=== PATIENT | male | born 1985 | race Caucasian/White ===

== ENCOUNTER → 2020-05-30 15:01 | Outpatient (BNVA) | payer BC, SELFPAY | PROVIDERS: Family Provider Family Medicine; Visit Provider Counselor Professional | DX: F10.20 Alcohol dependence, uncomplicated (principal); F33.1 Major depressive disorder, recurrent, moderate | CPT/HCPCS: 90791 ==

== ENCOUNTER 2020-06-17 01:58 | Emergency (ER) | payer BC, SELFPAY ==
[2020-06-17 02:02] VITALS: BP 121/78; PULSE 96; RESP 17; TEMP 36.6; O2SAT 98; BMI 30.4
--- NOTE | 2020-06-17 02:28 | XRR_ITS ---
PROCEDURE INFORMATION: Exam: XR Left Foot Exam date and time: 06/17/2020 2:43 AM Age: 35 years old Clinical indication: Injury or trauma; Injury history: Snake bite; Initial encounter; Wound; Ankle; Left; Foreign body involvement not specified TECHNIQUE: Imaging protocol: XR Left foot. Views: 1 or 2 views. COMPARISON: No relevant prior studies available. FINDINGS: No definite acute fracture or dislocation is demonstrated on these 2 views. XR/XR foot LT 2V [id number] IMPRESSION: No acute osseous abnormality is demonstrated.
[2020-06-17 02:44] VITALS: RESP 18
[2020-06-17] MEDS: diphenhydrAMINE 50 mg/mL SDV 1mL 25 MG IVP (02:44)
[2020-06-17] MEDS: ketorolac 30 mg/mL INJ IVP (02:44)
[2020-06-17] MEDS: HYDROmorphone 1 mg/mL INJ 1 mL IVP (02:44)
[2020-06-17 02:45] LABS: Basophils # 0.1 10^3/uL (0.0-0.1); Basophils % 0.8 %; Eosinophils # 0.2 10^3/uL (0.0-0.8); Hematocrit 46.9 % (42.0-52.0); Hemoglobin 16.1 g/dL (11.7-16.6); Lymphocytes # 3.1 10^3/uL (0.8-4.8); Mean Corpuscular HGB Conc 34.3 g/dL (30.0-36.0); Mean Corpuscular Hemoglobin 32.9 pg (28.0-34.0); Mean Corpuscular Volume 95.7 fL (80-94); Monocytes # 0.9 10^3/uL (0.2-0.9); Monocytes % 10.6 %; Neutrophils % 50.4 %; Nucleated Red Blood Cells % 0 %; Platelet Count 366 10^3/cmm (130-400); Red Cell Distribution Width 13.2 % (12.1-15.1); White Blood Count 8.6 10^3/uL (4.0-10.0)
[2020-06-17] MEDS: ondansetron 2 mg/ML SDV 2 mL 4 MG IVP (02:45)
[2020-06-17] MEDS: sodium chloride 0.9% 500 ML IV (02:50)
[2020-06-17 03:02] LABS: Alanine Aminotransferase 191 U/L (0-41); Albumin Level 4.3 g/dL (3.5-5.2); Alkaline Phosphatase 96 IU/L (40-130); Anion Gap 13.8 (5-19); Aspartate Amino Transferase 169 U/L (0-40); Blood Urea Nitrogen 3 mg/dL (6-20); C Reactive Protein 4.6 mg/L (0.0-4.9); Calcium 8.6 mg/dL (8.5-10.5); Carbon Dioxide 28 mmol/L (22-29); Chloride 104 mmol/L (98-107); Creatine Phosphokinase 73 U/L (39-308); Globulin 2.8 g/dL (1.3-4.6); Glomerular Filtration Rate 95.5 mL/min (90-130); Glucose 106 mg/dL (65-115); Osmolality Calculated 292 mOsm/kg (285-295); Sodium 143 mmol/L (136-145); Total Bilirubin 0.5 mg/dL (0.15-1.2); Total Protein 7.1 g/dL (6.6-8.7)
[2020-06-17 03:03] LABS: Lactate (Lactic Acid level) 1.3 mmol/L (0.5-2.2)
[2020-06-17 03:12] LABS: Potassium 2.8 mmol/L (3.5-5.1)
[2020-06-17 03:21] LABS: INR 1.04 (0.8-1.2)
[2020-06-17 03:22] LABS: Fibrinogen 242 mg/dL (174-498); Partial Thromboplastin Time 25.6 SECONDS (23.9-36.7)
[2020-06-17 03:25] LABS: D Dimer 0.36 ug/mIFEU (0-0.59)
[2020-06-17 03:44] VITALS: BP 132/84; PULSE 74; RESP 16; O2SAT 99
[2020-06-17] MEDS: potassium chloride oral liq 20 mEq/15 mL UDC 40 MEQ PO (04:25)
[2020-06-17 04:35] VITALS: BP 128/84; PULSE 72; RESP 16; TEMP 36.8; O2SAT 99
--- NOTE | 2020-06-17 22:58 | W.ED.ANIMALB ---
HPI - Animal Bite General: Chief Complaint: Animal Bite Stated Complaint: snake bite foot Time Seen by Provider: 06/17/20 02:19 History of Present Illness: HPI narrative: 35-year-old male who believes he was bitten by a snake at home. He did not see the snake clearly. Was bitten on the left fourth toe. He began to experience significant pain tracking up his leg within an hour. It worsened over the next couple of hours. He is not had any shortness of breath cough or facial swelling. MD complaint: animal bite Onset (ago): hour(s) Animal: snake Mechanism: bite Location - Extremities: Left: foot Pain description: constant Context: other Associated symptoms: Deny bleeding, chills, cough, fever(s), headache(s), rash, short of breath or wound drainage Review of Systems Const: Denies: fever(s) or chills Eyes: Denies: change in vision or blurry vision ENMT: Denies: swelling of lips/tongue or bleeding gums Card: Denies: chest pain, palpitations or irregular heart rhythm Resp: Denies: dyspnea, productive cough, non-productive cough or wheezing GI: Reports: nausea; Denies: abdominal pain or vomiting : Denies: difficulty urinating or hematuria Musc: Reports: joint redness and joint warmth; Denies: neck pain or back pain Skin/Breast: Denies: rash, pruritus or erythema Neuro: Denies: headache(s) Psych: Denies: anxiety PFSH ED PFSH: Social History Current gender identity: Male Physical Exam Const: GENERAL APPEARANCE: well developed ORIENTATION/CONSCIOUSNESS: Yes oriented to person, Yes oriented to place and Yes oriented to time HENMT: COMMON NORMALS: normocephalic, external ears normal and Normal external nose present HEAD & SCALP: normocephalic FACE & SINUS: normal facial exam NOSE: Normal external nose present and No nasal discharge present EXTERNAL EAR: Yes external ears normal THROAT: posterior oropharynx normal; no peritonsillar mass Eye: COMMON NORMALS: Equal, round and reactive pupils present, EOMs intact bilaterally and conjunctivae normal EYELID: eyelids normal CONJUNCTIVA: Yes conjunctivae normal PUPIL: Yes Equal, round and reactive pupils present Neck/C-Spine: GENERAL: No tracheal deviation Chest: COMMONS NORMALS: normal inspection of the chest CHEST: No tenderness Resp: COMMON NORMALS: clear to auscultation bilaterally EFFORT & INSPECTION: No tachypneic, No respiratory distress, No retractions, No uses accessory muscles and No tracheal deviation AUSCULTATION: clear to auscultation bilaterally, no rhonchi, no wheezes and lung sounds not diminished Cardio: COMMON NORMALS: regular rate and regular rhythm RATE: regular rate RHYTHM: regular rhythm HEART SOUNDS: no murmurs PERIPHERAL PULSES: radial pulses present GI: INSPECTION: No abdominal distension AUSCULTATION: No Hyperactive bowel sounds present and No Hypoactive bowel sounds present PALPATION: No Guarding due to palpation present (GI) and No Rigid due to palpation PERCUSSION: no dullness to percussion and no tympanic to percussion Extremity: NARRATIVE EXTREMITY EXAM: Puncture to left fourth toe. Hemorrhagic blister present on the dorsum. Swelling present to the ankle. No reproducible tenderness superior to the ankle. Neuro: SENSORIUM/ORIENTATION: Yes oriented to person, Yes oriented to place and Yes oriented to time Psych: COMMON NORMALS: mental status grossly normal Skin: COMMON NORMALS: no rashes or lesions noted GENERAL SKIN EXAM: no rashes or lesions noted Course Vital Signs: Vital signs: Vital Signs Temperature 98.2 F 06/17/20 04:35 Pulse Rate 72 06/17/20 04:35 Respiratory Rate 16 06/17/20 04:35 Blood Pressure 128/84 06/17/20 04:35 Pulse Oximetry 99 06/17/20 04:35 MDM - Animal Bite MDM Narrative: Medical decision making narrative: 35-year-old male presents with a likely snake envenomation. He is experiencing pain up to the left groin after a bite to the left foot. There is no sign of anaphylaxis or airway compromise. His potassium is low. His coagulation studies are normal. His pain is improved. He is hours out from injury. I doubt at this point, that he will progress to significant disease including compartment syndrome or allergic reaction. I do not see a need for [employer] in this patient. He will be given oral steroids and pain control. His potassium was repleted. Lab Data: Labs: Lab Results 06/17/20 06/17/20 06/17/20 Range/Units 02:37 02:37 02:37 WBC 8.6 (4.0-10.0) 10^3/ uL RBC 4.90 (4.1-5.3) 10^6/u L Hgb 16.1 (11.7-16.6) g/dL Hct 46.9 (42.0-52.0) % MCV 95.7 H (80-94) fL MCH 32.9 (28.0-34.0) pg MCHC 34.3 (30.0-36.0) g/dL RDW 13.2 (12.1-15.1) % Plt Count 366 (130-400) 10^3/c mm MPV 9.0 (7.4-10.4) fL Neut % (Auto) 50.4 % Lymph % (Auto) 36.0 % [place] % (Auto) 10.6 % Eos % (Auto) 2.0 % Baso % (Auto) 0.8 % Neut # (Auto) 4.30 (1.8-7.7) 10^3/u L Lymph # (Auto) 3.1 (0.8-4.8) 10^3/u L [place] # (Auto) 0.9 (0.2-0.9) 10^3/u L Eos # (Auto) 0.2 (0.0-0.8) 10^3/u L Baso # (Auto) 0.1 (0.0-0.1) 10^3/u L Nucleated RBC % (a uto) 0 % Nucleated RBCs # 0.0 /100WBC PT 14.00 (12.1-14.9) SECO NDS INR 1.04 (0.8-1.2) APTT 25.6 (23.9-36.7) SECO NDS Fibrinogen 242 (174-498) mg/dL Fibrin Degrad Prod ucts Neg, <10 (NEG) ug/mL D-Dimer 0.36 (0-0.59) ug/mIFE U Sodium 143 (136-145) mmol/L Potassium 2.8 L* (3.5-5.1) mmol/L Chloride 104 (98-107) mmol/L Carbon Dioxide 28 (22-29) mmol/L Anion Gap 13.8 (5-19) BUN 3 L (6-20) mg/dL Creatinine 0.9 (0.7-1.2) mg/dL GFR Calculation 95.5 (90-130) mL/min Glucose 106 (65-115) mg/dL Calculated Osmolal ity 292 (285-295) mOsm/k g Lactate (0.5-2.2) mmol/L Calcium 8.6 (8.5-10.5) mg/dL Total Bilirubin 0.5 (0.15-1.2) mg/dL AST 169 H (0-40) U/L ALT 191 H (0-41) U/L Alkaline Phosphata se 96 (40-130) IU/L Creatine Kinase 73 (39-308) U/L C-Reactive Protein 4.6 (0.0-4.9) mg/L Total Protein 7.1 (6.6-8.7) g/dL Albumin 4.3 (3.5-5.2) g/dL Globulin 2.8 (1.3-4.6) g/dL 06/17/20 Range/Units 02:37 WBC (4.0-10.0) 10^3/ uL RBC (4.1-5.3) 10^6/u L Hgb (11.7-16.6) g/dL Hct (42.0-52.0) % MCV (80-94) fL MCH (28.0-34.0) pg MCHC (30.0-36.0) g/dL RDW (12.1-15.1) % Plt Count (130-400) 10^3/c mm MPV (7.4-10.4) fL Neut % (Auto) % Lymph % (Auto) % [place] % (Auto) % Eos % (Auto) % Baso % (Auto) % Neut # (Auto) (1.8-7.7) 10^3/u L Lymph # (Auto) (0.8-4.8) 10^3/u L [place] # (Auto) (0.2-0.9) 10^3/u L Eos # (Auto) (0.0-0.8) 10^3/u L Baso # (Auto) (0.0-0.1) 10^3/u L Nucleated RBC % (a uto) % Nucleated RBCs # /100WBC PT (12.1-14.9) SECO NDS INR (0.8-1.2) APTT (23.9-36.7) SECO NDS Fibrinogen (174-498) mg/dL Fibrin Degrad Prod ucts (NEG) ug/mL D-Dimer (0-0.59) ug/mIFE U Sodium (136-145) mmol/L Potassium (3.5-5.1) mmol/L Chloride (98-107) mmol/L Carbon Dioxide (22-29) mmol/L Anion Gap (5-19) BUN (6-20) mg/dL Creatinine (0.7-1.2) mg/dL GFR Calculation (90-130) mL/min Glucose (65-115) mg/dL Calculated Osmolal ity (285-295) mOsm/k g Lactate 1.3 (0.5-2.2) mmol/L Calcium (8.5-10.5) mg/dL Total Bilirubin (0.15-1.2) mg/dL AST (0-40) U/L ALT (0-41) U/L Alkaline Phosphata se (40-130) IU/L Creatine Kinase (39-308) U/L C-Reactive Protein (0.0-4.9) mg/L Total Protein (6.6-8.7) g/dL Albumin (3.5-5.2) g/dL Globulin (1.3-4.6) g/dL Discharge Plan Discharge Patient Disposition: Home Clinical Impression: Snake bite Qualifiers: Encounter type: initial encounter Qualified Code(s): W59.11XA - Bitten by nonvenomous snake, initial encounter Condition: Stable Prescriptions: New Percocet 7.5-325 mg tablet 1 tab PO Q6H PRN (Reason: pain) Qty: 10 RF: 0 Medrol (Luis E) 4 mg tablets,dose pack See Rx Instructions .ROUTE .COMPLEX Qty: 21 RF: 0 Discharge Orders: Discharge Order (Routine); Ordered 06/17/20 Ordered By: Quinton Ponce Referrals: Kuldeep Gillespie Jr, MD [Primary Care Provider] - 1-3 days Discharge Diet: Advance as tolerated Discharge Activity: Increase activity as tolerated Patient Instructions: Snake Bite (ED) Activity Restrictions/Additional Instructions: Return for worsening pain, swelling, redness, streaking despite treatment. Return for vomiting liquids or medications, fever greater than 100, other concerning symptoms. Ice the foot often. Discharge Date/Time: 06/17/20 04:36 Coding Level of Care Code ED Program Coordinator Executive Education for [employer]
== END 2020-06-17 04:36 | disposition home or self-care (01) ==
PROVIDERS: Emergency Provider Emergency Medicine; PCP Family Medicine
DX: T63.001A Toxic effect of unspecified snake venom, accidental (unintentional), initial encounter (principal)
CPT/HCPCS: 12345; 73620; 80053; 82550; 83605; 85025; 85362; 85378; 85384; 85610; 85730; 86140; 96361; 96374; 96375; 99282; 99283; J1170; J1200; J1885; J2405; J2930; J7040

== ENCOUNTER → 2020-07-02 08:49 | Outpatient (BNVA) | payer BC, SELFPAY | PROVIDERS: Family Provider Family Medicine; Visit Provider Psychiatry & Neurology Psychiatry | DX: F33.1 Major depressive disorder, recurrent, moderate (principal); F10.20 Alcohol dependence, uncomplicated | CPT/HCPCS: 99204 ==

== ENCOUNTER 2020-08-31 19:35 | Inpatient (IN) | payer BC, SELFPAY ==
[2020-08-31 19:38] VITALS: BMI 31.1
--- NOTE | 2020-08-31 19:43 | PC.NURSE ---
patient denies SI. Was sent here for suicidal thoughts and expression to others.
[2020-08-31 19:44] VITALS: BP 127/81; PULSE 122; RESP 18; TEMP 36.4; O2SAT 94
--- NOTE | 2020-08-31 20:06 | W.ED.PSYCH ---
HPI - Psych General: Chief Complaint: Psychiatric Symptoms Stated Complaint: 96 Time Seen by Provider: 08/31/20 19:44 Source: patient Mode of arrival: ambulatory History of Present Illness: HPI Narrative: Patient was brought in to the ED by law enforcement after his sister obtained a court-ordered 96 hour psychiatric hold on him. In her affidavit, she states that the patient is suicidal and has said he would shoot himself. The patient denies this. The patient also endorses alcohol abuse but claims he only does it to help him sleep. The patient claims he went to see his doctor today for an adjustment of his medications including trazodone to help him sleep. He chews tobacco but denies any illicit drug use Context: recent alcohol abuse Review of Systems General: Reports: 10 or more systems reviewed and unremarkable except in HPI and below Const: Denies: fever(s), chills or body aches Eyes: Denies: change in vision or blurry vision ENMT: Denies: throat pain, enlarged tonsils, odynophagia, hoarseness, mouth pain or swelling of lips/tongue Card: Denies: palpitations, irregular heart rhythm, edema or swelling of feet/ankles Resp: Denies: dyspnea, productive cough or non-productive cough GI: Denies: abdominal pain, nausea or vomiting : Denies: flank pain, dysuria, urinary frequency, urinary urgency or urinary hesitancy Musc: Denies: neck pain, back pain or extremity swelling Skin/Breast: Denies: rash, pruritus or erythema Neuro: Denies: headache(s), numbness in extremities or weakness in extremities Endo: Denies: polyuria, polydipsia or tired all the time [facility] ED PFSH: Social History Smoking and tobacco status: current every day smoker smokeless tobacco Smokeless tobacco user: chewing tobacco Smokeless tobacco details: 1 can per day for 20 years. Quit status (tobacco): considering quitting Second hand smoke exposure: No Current gender identity: Male Physical Exam Const: COMMON NORMALS: no acute distress, average body habitus, patient oriented x3, no limitations, healthy appearing, alert and well nourished HENMT: COMMON NORMALS: normocephalic, atraumatic and moist oral mucous membranes HEAD & SCALP: normocephalic and atraumatic Neck/C-Spine: COMMON NORMALS: full ROM, supple, no meningeal signs, no JVD and No carotid bruits Resp: COMMON NORMALS: normal respiratory effort, No retractions, No use of accessory muscles, clear to auscultation bilaterally and percussion normal AUSCULTATION: clear to auscultation bilaterally PERCUSSION: percussion normal Cardio: COMMON NORMALS: no JVD, regular rate, regular rhythm, S1 normal heart sound present, S2 normal heart sound present, No gallops present (Cardio), No clicks present (Cardio), No murmurs present (Cardio), No rub (Cardio) and Peripheral pulses 2+ throughout RATE: regular rate RHYTHM: regular rhythm HEART SOUNDS: S1 normal heart sound present and S2 normal heart sound present PERIPHERAL PULSES: Peripheral pulses 2+ throughout GI: COMMON NORMALS: Normal to inspection, nondistended, normoactive bowel sounds present, Soft to palpation, non-tender, No hepatosplenomegaly present, no masses and no bruits PALPATION: Yes Soft to palpation and Yes No hepatosplenomegaly present Extremity: COMMON NORMALS: normal to inspection, full ROM, capillary refill normal, no calf tenderness and no pedal edema Neuro: COMMON NORMALS: patient oriented x3 SENSORIUM/ORIENTATION: Yes alert MENINGEAL SIGNS: Yes no meningeal signs Skin: COMMON NORMALS: no rashes or lesions noted, no wounds, turgor normal, no jaundice, no petechiae and no mottling GENERAL SKIN EXAM: no rashes or lesions noted and turgor normal MDM - Psych MDM Narrative: Medical decision making narrative: Patient who was brought in on a 96-hour hold secondary to reported suicide ideation. The patient was medically cleared and he is admitted to the neuropsychiatric unit for further evaluation and management Medical Records: Attestation: I reviewed the patient's medical records. Lab Data: Attestation: I reviewed the patient's lab results. Labs: Lab Results 08/31/20 08/31/20 08/31/20 Range/Units 19:49 19:49 20:15 WBC 12.0 H (4.0-10.0) 10^3/ uL RBC 5.11 (4.1-5.3) 10^6/u L Hgb 17.3 H (11.7-16.6) g/dL Hct 50.1 (42.0-52.0) % MCV 98.0 H (80-94) fL MCH 33.9 (28.0-34.0) pg MCHC 34.5 (30.0-36.0) g/dL RDW 12.8 (12.1-15.1) % Plt Count 283 (130-400) 10^3/c mm MPV 9.2 (7.4-10.4) fL Neut % (Auto) 68.5 % Lymph % (Auto) 20.1 % [place] % (Auto) 9.6 % Eos % (Auto) 0.6 % Baso % (Auto) 0.9 % Neut # (Auto) 8.24 H (1.8-7.7) 10^3/u L Lymph # (Auto) 2.4 (0.8-4.8) 10^3/u L [place] # (Auto) 1.2 H (0.2-0.9) 10^3/u L Eos # (Auto) 0.1 (0.0-0.8) 10^3/u L Baso # (Auto) 0.1 (0.0-0.1) 10^3/u L Nucleated RBC % (a uto) 0 % Nucleated RBCs # 0.0 /100WBC Sodium (136-145) mmol/L Potassium (3.5-5.1) mmol/L Chloride (98-107) mmol/L Carbon Dioxide (22-29) mmol/L Anion Gap (5-19) BUN (6-20) mg/dL Creatinine (0.7-1.2) mg/dL GFR Calculation (90-130) mL/min Glucose (65-115) mg/dL Calculated Osmolal ity (285-295) mOsm/k g Calcium (8.5-10.5) mg/dL Total Bilirubin (0.15-1.2) mg/dL AST (0-40) U/L ALT (0-41) U/L Alkaline Phosphata se (40-130) IU/L Total Protein (6.6-8.7) g/dL Albumin (3.5-5.2) g/dL Globulin (1.3-4.6) g/dL Urine Color [place] (Yellow) Urine Appearance Clear (CLEAR) Urine pH 7 (5-7) Ur Specific Gravit y 1.005 (1.005-1.030) Urine Protein Neg (Negative) Urine Glucose (UA) Trace H (Normal) Urine Ketones Negative (Negative) Urine Blood Neg (Negative) Urine Nitrate Negative (Negative) Urine Bilirubin Neg (Negative) Urine Urobilinogen 4 H (Negative) mg/dL Ur Leukocyte Pauline ase Negative (Negative) Salicylates (3-10) mg/dL Urine Opiates Scre en Negative (Negative) ng/mL Acetaminophen (10-30) ug/mL Ur Barbiturates Sc reen Negative (Negative) ng/mL Ur Phencyclidine S crn Negative (Negative) ng/mL Ur Amphetamines Sc reen Negative (Negative) ng/mL U Benzodiazepines Scrn Negative (Negative) ng/mL Urine Cocaine Scre en Negative (Negative) ng/mL U Marijuana (THC) Screen Negative (Negative) ng/mL Ethyl Alcohol (0-10) mg/dL 10/30/20 Range/Units 20:15 WBC (4.0-10.0) 10^3/ uL RBC (4.1-5.3) 10^6/u L Hgb (11.7-16.6) g/dL Hct (42.0-52.0) % MCV (80-94) fL MCH (28.0-34.0) pg MCHC (30.0-36.0) g/dL RDW (12.1-15.1) % Plt Count (130-400) 10^3/c mm MPV (7.4-10.4) fL Neut % (Auto) % Lymph % (Auto) % [place] % (Auto) % Eos % (Auto) % Baso % (Auto) % Neut # (Auto) (1.8-7.7) 10^3/u L Lymph # (Auto) (0.8-4.8) 10^3/u L [place] # (Auto) (0.2-0.9) 10^3/u L Eos # (Auto) (0.0-0.8) 10^3/u L Baso # (Auto) (0.0-0.1) 10^3/u L Nucleated RBC % (a uto) % Nucleated RBCs # /100WBC Sodium 138 (136-145) mmol/L Potassium 3.2 L (3.5-5.1) mmol/L Chloride 100 (98-107) mmol/L Carbon Dioxide 24 (22-29) mmol/L Anion Gap 17.2 (5-19) BUN 6 (6-20) mg/dL Creatinine 0.6 L (0.7-1.2) mg/dL GFR Calculation 152.4 H (90-130) mL/min Glucose 100 (65-115) mg/dL Calculated Osmolal ity 284 L (285-295) mOsm/k g Calcium 9.6 (8.5-10.5) mg/dL Total Bilirubin 1.7 H (0.15-1.2) mg/dL AST 267 H (0-40) U/L ALT 191 H (0-41) U/L Alkaline Phosphata se 145 H (40-130) IU/L Total Protein 7.3 (6.6-8.7) g/dL Albumin 4.2 (3.5-5.2) g/dL Globulin 3.1 (1.3-4.6) g/dL Urine Color (Yellow) Urine Appearance (CLEAR) Urine pH (5-7) Ur Specific Gravit y (1.005-1.030) Urine Protein (Negative) Urine Glucose (UA) (Normal) Urine Ketones (Negative) Urine Blood (Negative) Urine Nitrate (Negative) Urine Bilirubin (Negative) Urine Urobilinogen (Negative) mg/dL Ur Leukocyte Pauline ase (Negative) Salicylates < 0.3 L (3-10) mg/dL Urine Opiates Scre en (Negative) ng/mL Acetaminophen < 5.0 L (10-30) ug/mL Ur Barbiturates Sc reen (Negative) ng/mL Ur Phencyclidine S crn (Negative) ng/mL Ur Amphetamines Sc reen (Negative) ng/mL U Benzodiazepines Scrn (Negative) ng/mL Urine Cocaine Scre en (Negative) ng/mL U Marijuana (THC) Screen (Negative) ng/mL Ethyl Alcohol 170 H (0-10) mg/dL Discharge Plan Discharge Patient Disposition: Admitted As Inpatient Admit Provider: Bud Tom Clinical Impression: Suicidal ideation, Alcohol use disorder, moderate, dependence Condition: Stable Interventions: ED Discharge Assessment Last Done: 08/31/20 21:32 ED Charges Last Done: 08/31/20 21:32 Discharge Date/Time: 08/31/20 21:32 Coding Level of Care Code ED Esl Instructional Assistant for Chg Fwd Exam Comprehensive
[2020-08-31 20:20] LABS: Basophils # 0.1 10^3/uL (0.0-0.1); Basophils % 0.9 %; Eosinophils # 0.1 10^3/uL (0.0-0.8); Eosinophils % 0.6 %; Hematocrit 50.1 % (42.0-52.0); Hemoglobin 17.3 g/dL (11.7-16.6); Lymphocytes # 2.4 10^3/uL (0.8-4.8); Lymphocytes % 20.1 %; Mean Corpuscular HGB Conc 34.5 g/dL (30.0-36.0); Mean Corpuscular Hemoglobin 33.9 pg (28.0-34.0); Mean Platelet Volume 9.2 fL (7.4-10.4); Monocytes # 1.2 10^3/uL (0.2-0.9); Monocytes % 9.6 %; Neutrophils # 8.24 10^3/uL (1.8-7.7); Neutrophils % 68.5 %; Nucleated Red Blood Cells % 0 %; Platelet Count 283 10^3/cmm (130-400); Red Blood Count 5.11 10^6/uL (4.1-5.3); Red Cell Distribution Width 12.8 % (12.1-15.1)
[2020-08-31 20:32] LABS: Add Urine Microscopic? NO
[2020-08-31 20:35] LABS: Bilirubin Urine Neg (Negative); Blood Urine Neg (Negative); Glucose Urine UA Trace (Normal); Ketones Urine Negative (Negative); Leukocyte Esterase Urine Negative (Negative); Nitrate Urine Negative (Negative); Protein Urine Neg (Negative); Specific Gravity, Urine 1.005 (1.005-1.030); Urine Appearance Clear (CLEAR); Urine Color Orange (Yellow); Urobilinogen Urine 4 mg/dL (Negative); pH Urine 7 (5-7)
[2020-08-31 20:42] LABS: Amphetamines Screen Urine Negative (Negative); Barbiturates Screen Urine Negative (Negative); Benzodiazepines Screen Urine Negative (Negative); Cocaine Screen Urine Negative (Negative); Opiate Screen Urine Negative (Negative); PCP Screen Urine Negative (Negative); THC Screen Urine Negative (Negative)
[2020-08-31 20:50] LABS: Alanine Aminotransferase 191 U/L (0-41); Albumin Level 4.2 g/dL (3.5-5.2); Alcohol Level 170 mg/dL (0-10); Alkaline Phosphatase 145 IU/L (40-130); Anion Gap 17.2 (5-19); Aspartate Amino Transferase 267 U/L (0-40); Blood Urea Nitrogen 6 mg/dL (6-20); Calcium 9.6 mg/dL (8.5-10.5); Carbon Dioxide 24 mmol/L (22-29); Chloride 100 mmol/L (98-107); Globulin 3.1 g/dL (1.3-4.6); Glomerular Filtration Rate 152.4 mL/min (90-130); Glucose 100 mg/dL (65-115); Osmolality Calculated 284 mOsm/kg (285-295); Potassium 3.2 mmol/L (3.5-5.1); Sodium 138 mmol/L (136-145); Total Bilirubin 1.7 mg/dL (0.15-1.2); Total Protein 7.3 g/dL (6.6-8.7)
[2020-08-31 21:01] LABS: Acetaminophen < 5.0 ug/mL (10-30); Salicylate < 0.3 mg/dL (3-10)
[2020-08-31] MEDS: LORazepam 1 mg Tablet PO (21:19)
--- NOTE | 2020-08-31 21:19 | PC.NURSE ---
pt report called to Latosha MOSCOSO in SBAR format.
[2020-08-31 21:29] VITALS: BMI 31.1
[2020-08-31 21:32] VITALS: BP 130/83; PULSE 96; RESP 18; O2SAT 98
[2020-08-31 21:38] VITALS: BP 148/96; PULSE 106; RESP 15; TEMP 36.6; O2SAT 96
[2020-08-31] MEDS: trazodone 150 mg Tablet PO (22:28)
[2020-09-01 06:00] VITALS: BP 146/102; PULSE 89; RESP 15; TEMP 36.8; O2SAT 98
[2020-09-01] MEDS: lisinopril 20 mg Tablet 40 MG PO (09:18)
--- NOTE | 2020-09-01 09:18 | PM.NHP ---
Providers/Chief Complaint Admitting Physician: Bud Tom MD Chief Complaint: 96 HPI NPU History of Present Illness I drink because I cannot get to sleep at night. Grady Castillo is a 35 year old male who has gotten him into a circular process such that he drinks so that he can get to sleep at night but that alcohol causes him to be depressed which worsens his insomnia. He reports persistent dysphoria, anhedonia, irritability, poor sleep, poor energy, and poor motivation. He is doing well at work. He endorses the presence of hopelessness but denies any suicidal or homicidal ideation. He has never had a plan to suicide. He denies the presence of auditory or visual hallucinations. He clearly minimizes the amount of alcohol he is drinking. He says that he only drank 2 shots yesterday but came in with a blood alcohol level indicating that he had not had much more. It is also noted that his liver enzymes are also elevated. He says there are times when he wakes up in the morning and he has tremors and occasionally he drinks alcohol to calm his nerves. His family has told him he needs to stop drinking. However he has not had any legal infractions from the alcohol. He does attribute his divorce to his alcohol. He went through an alcohol inpatient rehab program 4 months ago. However he has not engaged in an outpatient follow-up program. He drinks on a daily basis. He claims to only by 3 pints of liquor per week. He reports a family history of alcohol but is vague about its details. It is noteworthy that in a psychiatric evaluation in June that was acquired so that he could initiate long-acting naltrexone, he informed the doctor that he was drinking up to 2 pints a day. He acknowledged having blackouts when he drinks heavily. He denied any history of seizures or delirium tremens. He has been treated with Celexa for 6 years. He has been treated for trazodone for sleep. In the beginning, it seemed to work. However his problems sleeping is 1 of initial insomnia. Once he is able to get the sleep he sleeps well. Of course that is after he has ingested significant amounts of alcohol. The time delay of onset for trazodone would not work well for him with initial insomnia. He is also taking the long-acting naltrexone. He is due for his monthly injection today and expects to receive it from his mother who is a registered nurse once he is released from here. He does not feel that it really helps. However he continues to be compliant because of demands by his as part of their divorce decree in order that he continue having contact with his children. Past psychiatric history: He has been treated on an outpatient basis with Celexa for 6 years. He reported that in the beginning, it provided significant benefit in reducing his anxiety. He does not feel it is working anymore as he now meets criteria for major depression. He acknowledges that in fact, his depressive symptoms may be secondary to his alcohol abuse. He is taking trazodone 100 mg at bedtime. He says that it does not provide benefit. Family psychiatric history is positive only for multiple members with alcohol abuse problems. He denied any history of treatment for depression, psychosis, or inpatient admission. Social history:He has been once for 6 years and about 6 years ago. He has 3 children from that marriage ages 7, 5, and 2 and they live with her mother. He graduated high school and [facility] where he grew up and was in regular classes. 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 He denies any legal history such as DUIs and denies any history.He rates his motivation to quit drinking 9-10 out of 10 and tells me that his main motivation is for his children ages 7, 5, and 2 years old. Medical history: He has no known drug allergies. He is being treated with amlodipine 5 mg daily for hypertension. It is unknown whether the hypertension is secondary to his alcohol abuse. Admission labs: Laboratory Tests 08/31/20 08/31/20 19:49 20:15 Total Bilirubin 1.7 H AST 267 H ALT 191 H Alkaline Phosphatase 145 H Urine Opiates Screen Negative Ur Barbiturates Screen Negative Ur Phencyclidine Scrn Negative Ur Amphetamines Screen Negative U Benzodiazepines Scrn Negative Urine Cocaine Screen Negative U Marijuana (THC) Screen Negative Ethyl Alcohol 170 H Review of Systems Narrative: Review of Systems Constitutional: Complains of: Fatigue Eyes: Complains of: No eye symptoms ENT/Mouth: Complains of: No ENTM symptoms Cardiovascular: Complains of: No cardiac symptoms Respiratory: Complains of: No respiratory symptoms GI: Complains of: No GI symptoms Neuro: Complains of: No neuro symptoms Musculoskeletal: Complains of: No musculoskeletal symptoms Skin: Complains of: No skin symptoms Hematologic/Lymphatic: Complains of: No hematologic/lymphatic symptoms Endocrine: Complains of: No endocrine symptoms : Complains of: No symptoms Psych: He confirms the presence of Depression, but denies suicide ideation Meds NPU Home Medications Medication Instructions Recorded Confirmed Last Taken Type amlodipine 5 mg-benazepril 40 mg 1 cap PO DAILY #30 cap 07/02/20 08/31/20 08/31/20 Rx capsule paroxetine HCl 10 mg PO DAILY 08/31/20 08/31/20 Unknown History trazodone 150 mg PO BEDTIME 08/31/20 08/31/20 Unknown History Allergies Allergy/AdvReac Type Severity Reaction Status Date / Time No Known Allergies Allergy Unverified 07/02/20 08:55 PFSH NPU PFSH: Social History Smoking and tobacco status: current every day smoker smokeless tobacco Smokeless tobacco user: chewing tobacco Smokeless tobacco details: 1 can per day for 20 years. Quit status (tobacco): considering quitting Second hand smoke exposure: No Current gender identity: Male Vitals/I&O/Wt Last Vital Signs Temp 98.2 F 09/01/20 06:00 Pulse 89 09/01/20 06:00 Resp 15 09/01/20 06:00 BP 146/102 09/01/20 06:00 Pulse Ox 98 09/01/20 06:00 Weight last 48 hrs Weight 92.986 kg Weight 92.986 kg Data NPU : 08/31/20 20:15 08/31/20 20:15 A&P Assessment and plan (1) Major depression: Status: Acute Qualifiers: Major depression recurrence: recurrent Active/Remission status: currently active Major depression episode severity: moderate Qualified Code(s): F33.1 - Major depressive disorder, recurrent, moderate (2) Alcohol intoxication: Status: Acute Qualifiers: Complication of substance-induced condition: uncomplicated Qualified Code(s): F10.920 - Alcohol use, unspecified with intoxication, uncomplicated (3) Suicidal ideation: Status: Acute (4) Nicotine use disorder: Status: Acute (5) Alcohol use disorder, moderate, dependence: Status: Acute Additional A&P Information The patient was admitted to the adult psychiatric unit and entered into the form of individual and group therapies as part of the unit protocol. They were provided 24-hour access to medication supervision and therapeutic activities by trained psychiatric nursing. The patient was educated with regard to potential benefits and side effects of new medications. We agreed to a contingency plan of discontinuation of medication in the event of intolerable side effects. Due to the psychiatric conditions and treatment listed in the Assessment and Plan - the patient requires continued hospitalization. Will provide a safe and therapeutic environment for patient.. Will continue inpatient treatment to allow for medication adjustment and monitoring. Will continue q15 min safety checks. At this time, the patient does not appear to be an imminent risk to self or others. He is being actively employed is noted. At this time we will continue the alcohol withdrawal protocol. Considerable discussion went into making medication changes. It was decided to initiate Wellbutrin SR 100 mg daily. He was specifically educated with the potential for lowering the seizure threshold. He has no history of seizures. Trazodone would be replaced with Ambien. He was specifically educated with regard to the potential for having amnesia should he wake up in the middle of the night. He will likely remain in the hospital at least 1 more night to assess the presence of alcohol withdrawal symptoms and assess tolerability of his new medications. Monitor patient's mood, sleep, appetite, and behavior closely. Encourage patient to participate in individual and group therapeutic sessions on the [place]. Estimated length of stay 5 days The expected benefits and potential side effects of patient's psychiatric medications were discussed with the patient. The patient understands and consents to treatment. CRITERIA FOR DISCHARGE: stable on medications and no longer an imminent threat to self or others Involuntary Hold Information 96 Hour Hold: 96 Hour Involuntary Admission: Yes 96 Hour Hold Ending Date: 09/06/20 96 Hour Hold Ending Time: 21:29 Attestations NPU Medical Necessity Statement*: He will likely remain in the hospital at least 1 more night to assess the presence of alcohol withdrawal symptoms and assess tolerability of his new medications. Coding Level of Care Code Acute Block Breaker for [facility] Diagnoses Major depression F33.1 Major depression recurrence: recurrent Active/Remission status: currently active Major depression episode severity: moderate Alcohol intoxication F10.920 Complication of substance-induced condition: uncomplicated Suicidal ideation R45.851 Nicotine use disorder F17.200 Alcohol use disorder, moderate, dependence F10.20
[2020-09-01] MEDS: folic acid 1 mg Tablet PO (09:19)
[2020-09-01] MEDS: amlodipine 5 mg Tablet PO (09:19)
[2020-09-01] MEDS: multivitamin therapeutic Tablet 1 TAB PO (09:19)
[2020-09-01] MEDS: thiamine 100 mg Tablet PO (09:19)
[2020-09-01] MEDS: buPROPion SR (12 HR) 100 mg Tablet PO (11:25)
[2020-09-01 14:00] VITALS: BP 156/99; PULSE 94; RESP 20; TEMP 36.6; O2SAT 98
[2020-09-01] MEDS: hyDROXYzine 25 mg Capsule 50 MG PO (20:17)
[2020-09-01] MEDS: trazodone 50 mg Tablet PO (21:14)
[2020-09-02 06:00] VITALS: BP 155/106; PULSE 88; RESP 16; TEMP 36.2; O2SAT 96
[2020-09-02] MEDS: buPROPion SR (12 HR) 100 mg Tablet PO (08:04)
[2020-09-02] MEDS: multivitamin therapeutic Tablet 1 TAB PO (08:04)
[2020-09-02] MEDS: thiamine 100 mg Tablet PO (08:04)
[2020-09-02] MEDS: folic acid 1 mg Tablet PO (08:04)
[2020-09-02] MEDS: amlodipine 5 mg Tablet PO (08:04)
[2020-09-02] MEDS: lisinopril 20 mg Tablet 40 MG PO (08:04)
[2020-09-02 08:35] VITALS: BP 155/106; PULSE 88; RESP 16; TEMP 36.2; O2SAT 96
--- NOTE | 2020-09-02 08:45 | PM.NDC ---
Diagnoses at Discharge Discharge Diagnosis (1) Alcohol intoxication: Status: Resolved Qualifiers: Complication of substance-induced condition: uncomplicated Qualified Code(s): F10.920 - Alcohol use, unspecified with intoxication, uncomplicated (2) Suicidal ideation: Status: Resolved (3) Nicotine use disorder: Status: Acute (4) Alcohol use disorder, moderate, dependence: Status: Chronic Permanent problem details: Patient is eager to enter recovery and says he has not going to take any more alcohol. (5) Major depression: Status: Resolved Qualifiers: Active/Remission status: currently active Major depression episode severity: moderate Major depression recurrence: recurrent Qualified Code(s): F33.1 - Major depressive disorder, recurrent, moderate Reason for Visit Reason for Visit: 96 Brief History: Patient is no longer suicidal. 96-hour hold is rescinded. Hospital Course Hospital Course The patient was initially profoundly distraught and suicidal. He detoxed without any complications and now is committed to sobriety. Discharge Summary The patient will continue on home meds plus paroxetine. He had been on Wellbutrin but this has been discontinued. He will follow-up with his local provider. He has employment and good pay. Involuntary Hold Information 96 Hour Hold: 96 Hour Involuntary Admission: Yes 96 Hour Hold Ending Date: 09/06/20 96 Hour Hold Ending Time: 21:29 Mental Status Exam MSE Comments: This is a 35-year-old male who presents at his stated age. He is clean, neat and organized. Mood is far brighter than when he was admitted. Affect is appropriate. He recognizes the impact of alcohol on his life and wishes to end that. Thought processes are integrated and free of any racing, blocking or looseness of associations. There are no signs of psychosis, such as but not limited to hallucinations, delusions, ideas of reference, etc. speech is of normal rate and volume, without dysarthria, aprosody or pressure. Cognitive functions are intact, including insight and judgment. Patient denies any suicidal or homicidal ideation, plan or intent. Physical Exam Narrative: EXAM NARRATIVE: Const: no acute distress, average body habitus, patient oriented x3, no limitations, healthy appearing, alert and well nourished HENMT: normocephalic and atraumatic Neck/C-Spine: full ROM, supple, no meningeal signs, no JVD and No carotid bruits Resp: clear to auscultation bilaterally Cardio: regular rate and rhythm, S1 normal heart sound present and S2 normal heart sound present GI: Soft to palpation, no hepatosplenomegaly present Extremity: normal to inspection, full ROM, capillary refill normal, no calf tenderness and no pedal edema Neuro: Cranial nerves II to XII intact. No cerebellar, sensory or motor deficit noted Skin: no rashes or lesions noted and turgor normal Discharge Data Vitals: Last Vital Signs Temp 97.2 F L 09/02/20 08:35 Pulse 88 09/02/20 08:35 Resp 16 09/02/20 08:35 BP 155/106 09/02/20 08:35 Pulse Ox 96 09/02/20 08:35 Discharge Plan Discharge Patient Disposition: Home Condition: Stable Prescriptions: Continued paroxetine HCl 10 mg Tablet 10 mg PO DAILY 30 Days Qty: 30 RF: 1 Discontinued amlodipine-benazepril 5-40 mg capsule 1 cap PO DAILY Qty: 30 RF: 2 trazodone 150 mg Tablet 150 mg PO BEDTIME RF: 0 Discharge Orders: Discharge Order (Routine); Ordered 09/02/20 Ordered By: De Kc Referrals: [facility] [Outside] Discharge Diet: Usual diet Discharge Activity: Resume usual activity Patient Instructions: Abuse of Alcohol (GEN) Discharge Date/Time: 09/02/20 09:30 Discharge Attestations NPU Time Spent in Discharge Care*: greater than 30 min Specific Discharge Activities: Specific discharge activities: educating patient, discussing with rn case manager hospice/social workers/dc planners, documenting/other paperwork and evaluating patient/reviewing data Coding Level of Care Code Acute Yard Hand for [facility] Diagnoses Alcohol intoxication F10.920 Complication of substance-induced condition: uncomplicated Suicidal ideation R45.851 Nicotine use disorder F17.200 Alcohol use disorder, moderate, dependence F10.20 Major depression F33.1 Active/Remission status: currently active Major depression episode severity: moderate Major depression recurrence: recurrent
--- NOTE | 2020-09-03 16:56 | PC.RESP ---
Smoking Cessation information sent to patient.
== END 2020-09-02 09:30 | disposition home or self-care (01) | DRG 885 ==
LOC: ER 19:44 → NP 21:14
PROVIDERS: Family Medicine; Admitting Provider Psychiatry & Neurology Psychiatry; Visit Provider Psychiatry & Neurology Psychiatry
DX: F33.1 Major depressive disorder, recurrent, moderate (principal); R45.851 Suicidal ideations; F10.229 Alcohol dependence with intoxication, unspecified; F17.210 Nicotine dependence, cigarettes, uncomplicated; G47.00 Insomnia, unspecified
CPT/HCPCS: 12345; 80053; 80306; 80307; 81003; 85025; 99284

== ENCOUNTER 2020-10-28 14:08 | Emergency (ER) | payer BC, SELFPAY ==
[2020-10-28 14:11] VITALS: PULSE 101; RESP 16; TEMP 36.7; O2SAT 94; BMI 30.4
--- NOTE | 2020-10-28 14:20 | CTR_ITS ---
PROCEDURE INFORMATION: Exam: CT Abdomen And Pelvis Without Contrast Exam date and time: 10/28/2020 2:32 PM Age: 35 years old Clinical indication: Abdominal pain; Right; Patient HX: C/O R flank/rlq pain w hematuria and urgency; Additional info: Right flank pain, hematuria TECHNIQUE: Imaging protocol: Computed tomography of the abdomen and pelvis without contrast. Total images: 353 Radiation optimization: All CT scans at this facility use at least one of these dose optimization techniques: automated exposure control; mA and/or kV adjustment per patient size (includes targeted exams where dose is matched to clinical indication); or iterative reconstruction. COMPARISON: No relevant prior studies available. RADIATION DOSE METRICS: Total DLP (mGy-cm): 1814.1 FINDINGS: Lungs: Limited assessment of the lung bases fails to reveal evidence for active cardiopulmonary process. Liver: Marked diffuse fatty infiltration of the liver with hepatomegaly. No visible hepatic mass or cystic structure. Gallbladder and bile ducts: Hepatization of the gallbladder. No visible form cholelithiasis. No visible intra or extrahepatic biliary ectasia. Pancreas: Normal. No ductal dilation. Spleen: Normal. No splenomegaly. Adrenal glands: Normal. No mass. Kidneys and ureters: Examination reveals 3 tiny 2 mm right ureterovesical junction stones. No resulting significant right hydronephrosis or hydroureter. Rare tiny focus of nonobstructing calyceal nephrolithiasis left kidney all under 2 mm. Tiny cortical cyst equator right kidney measuring 9 mm. No follow-up recommended. No left hydronephrosis or bilateral perinephric fluid. Stomach and bowel: Assessment of the hollow viscus fails to reveal evidence of active or acute pathology. Nonobstructed bowel pattern. No visible acute diverticulitis. No visible adynamic or reactive ileus. Appendix: The appendix is visualized and appears noninflamed. Intraperitoneal space: No visible evidence of mesenteric lymphadenitis or active mesenteritis/panniculitis. No visible intraperitoneal ascites. No visible evidence of pneumoperitoneum. Vasculature: The abdominal aorta is nonaneurysmal. Lymph nodes: No current visible evidence of active mesenteric or retroperitoneal lymphadenopathy. Urinary bladder: Unremarkable as visualized. Reproductive: Unremarkable as visualized. Bones/joints: No visible active or acute osseous pathology. Soft tissues: Heavy body habitus. CT/CT kidney stone 88137 IMPRESSION: 1. Examination reveals 3 tiny 2 mm right ureterovesical junction stones. No resulting significant right hydronephrosis or hydroureter. 2. Rare tiny focus of nonobstructing calyceal nephrolithiasis left kidney all under 2 mm. 3. Marked diffuse fatty infiltration of the liver with hepatomegaly. 4. Hepatization of the gallbladder. COMMENTS: Consistent with the [employer]'s Incidental Findings Committee white paper (J Am Yobani Radiol 2018): Any incidental renal lesion less than 1 cm or classified as too small to characterize, or any incidental cystic renal lesion characterized as simple-appearing, is likely benign. No follow-up imaging is recommended for these lesions per consensus recommendations based on imaging criteria. Radiation Dose CTDIVOL = (mGy): DLP = 1814.1 (mGy-cm)
--- NOTE | 2020-10-28 14:26 | ED_ITS ---
HPI - Male Genitourinary General: Chief complaint: Urogenital-Male Stated complaint: FLANK PAIN Time Seen by Provider: 10/28/20 14:14 Source: patient Mode of arrival: ambulatory Limitations: no limitations History of Present Illness: HPI Narrative: 35-year-old male presenting by EMS with complaints of sudden onset right flank pain radiating to his groin that occurred about an hour prior to arrival. Onset was sudden, pain was 10 out of 10, now is improved. He also noted blood in his urine this morning. Denies any dysuria, penile discharge, genital lesions. Denies history of kidney stones. He has a history of alcohol abuse and is currently undergoing medication assisted detox; taking Ativan 3 times daily. His last drink was on [employer], 3 days ago. No fever. No abdominal pain, nausea, vomiting. No cough or congestion. Associated symptoms: Reports hematuria; Deny dysuria, nausea or vomiting Review of Systems General: Reports: 10 or more systems reviewed and unremarkable except in HPI and below Const: Denies: fever(s), chills, body aches, change in appetite, fatigue or malaise Eyes: Denies: change in vision or blurry vision Card: Denies: chest pain, palpitations or irregular heart rhythm Resp: Denies: dyspnea, productive cough or wheezing GI: Denies: nausea, vomiting, diarrhea or constipation : Reports: flank pain, urinary frequency, urinary urgency and hematuria; Denies: dysuria, genital pain, genital lesions, penile discharge or testicular pain Musc: Reports: back pain Skin/Breast: Denies: rash, pruritus or erythema Neuro: Denies: headache(s) Psych: Denies: visual hallucinations or auditory hallucinations Tristian/Lymph: Denies: easy bruising or easy bleeding [facility] ED PFSH: Medical History (Updated 10/28/20 @ 15:49 by Marija Saha MD) Alcohol intoxication Major depression Suicidal ideation Social History Smoking and tobacco status: current every day smoker smokeless tobacco Smokeless tobacco user: chewing tobacco Smokeless tobacco details: 1 can per day for 20 years. Quit status (tobacco): considering quitting Second hand smoke exposure: No Current gender identity: Male Physical Exam Const: COMMON NORMALS: no acute distress and patient oriented x3 GENERAL APPEARANCE: cooperative; not in distress and not ill appearing NUTRITIONAL APPEARANCE: overweight ORIENTATION/CONSCIOUSNESS: Yes awake, Yes oriented to person and Yes oriented to place HENMT: COMMON NORMALS: normocephalic and atraumatic HEAD & SCALP: normocephalic and atraumatic FACE & SINUS: normal facial exam and face symmetric Eye: COMMON NORMALS: Equal, round and reactive pupils present, EOMs intact bilaterally, conjunctivae normal and no scleral icterus CONJUNCTIVA: Yes conjunctivae normal PUPIL: Yes Equal, round and reactive pupils present Neck/C-Spine: COMMON NORMALS: full ROM and no lymphadenopathy GENERAL: Yes normal visual inspection CERVICAL SPINE: Yes cervical ROM normal Lymph: LYMPHATIC: no lymphadenopathy noted Resp: COMMON NORMALS: normal respiratory effort, No use of accessory muscles and clear to auscultation bilaterally EFFORT & INSPECTION: Yes able to speak in complete sentences, No tachypneic, No respiratory distress, No grunting, No stridor and No Actively coughing AUSCULTATION: clear to auscultation bilaterally Cardio: COMMON NORMALS: regular rate, regular rhythm, S1 normal heart sound present and S2 normal heart sound present RATE: regular rate RHYTHM: regular rhythm HEART SOUNDS: S1 normal heart sound present and S2 normal heart sound present GI: COMMON NORMALS: Soft to palpation PALPATION: Yes Soft to palpation, No Tenderness to palpation present (GI), No Guarding due to palpation present (GI), No Rigid due to palpation, Yes Hepatomegaly present, No Palpable mass present, No Pulsatile mass present and No Ascites present : BLADDER/KIDNEY EXAM: Yes CVA tenderness Back/Pelvis: COMMON NORMALS: thoracic and lumbar spine normal to inspection and thoraco-lumbar ROM normal GENERAL BACK: Yes CVA tenderness CVA tenderness: right Extremity: COMMON NORMALS: normal to inspection, full ROM, capillary refill normal, no clubbing, cyanosis or edema and no pedal edema Neuro: COMMON NORMALS: patient oriented x3, moves all extremities and no focal motor deficits SENSORIUM/ORIENTATION: Yes oriented to person and Yes oriented to place SPEECH: speech normal MOTOR EXAM: No Abnormal motor strength present, Tremors during motor activity present resting tremor bialteral upper extremity, No Asterixis during motor activity present and No Motor fasciculations present Psych: COMMON NORMALS: mental status grossly normal, cooperative, normal affect and speech normal APPEARANCE: Yes grossly normal SPEECH: Yes normal speech Course Vital Signs: Vital signs: Vital Signs Temperature 98.1 F 10/28/20 14:11 Pulse Rate 70 10/28/20 16:01 Respiratory Rate 16 10/28/20 14:11 Blood Pressure 178/90 10/28/20 16:01 Pulse Oximetry 97 10/28/20 16:01 MDM - Male MDM Narrative: Medical decision making narrative: 35-year-old male with acute right ureterolithiasis at the UVJ, nonobstructive. Treated with IV fluid, Toradol. Urinalysis did not show any evidence of bacterial infection. Flomax for 14 days. Strain urine. Elevated transaminases?recently just quit drinking alcohol 3 days ago; has a history of heavy alcohol use. Is currently undergoing detox. Will need to have his LFTs rechecked, discussed that with him. Avoid taking Tylenol. Differential Diagnosis: Urogenital Male Differential Diagnosis: Likely urinary tract infection, urethritis, acute retention of urine and inguinal hernia Medical Records: Attestation: I reviewed the patient's medical records. Lab Data: Attestation: I reviewed the patient's lab results. Labs: Lab Results 10/28/20 10/28/20 10/28/20 Range/Units 14:34 14:34 14:34 WBC 9.4 (4.0-10.0) 10^3/ uL RBC 4.40 (4.1-5.3) 10^6/u L Hgb 15.2 (11.7-16.6) g/dL Hct 43.8 (42.0-52.0) % MCV 99.5 H (80-94) fL MCH 34.5 H (28.0-34.0) pg MCHC 34.7 (30.0-36.0) g/dL RDW 12.2 (12.1-15.1) % Plt Count 209 (130-400) 10^3/c mm MPV 9.2 (7.4-10.4) fL Neut % (Auto) 71.5 % Lymph % (Auto) 13.5 % [place] % (Auto) 12.4 % Eos % (Auto) 1.5 % Baso % (Auto) 0.6 % Neut # (Auto) 6.73 (1.8-7.7) 10^3/u L Lymph # (Auto) 1.3 (0.8-4.8) 10^3/u L [place] # (Auto) 1.2 H (0.2-0.9) 10^3/u L Eos # (Auto) 0.1 (0.0-0.8) 10^3/u L Baso # (Auto) 0.1 (0.0-0.1) 10^3/u L Nucleated RBC % (a uto) 0 % Nucleated RBCs # 0.0 /100WBC PT 14.20 (12.1-14.9) SECO NDS INR 1.07 (0.8-1.2) Sodium 137 (136-145) mmol/L Potassium 3.6 (3.5-5.1) mmol/L Chloride 98 (98-107) mmol/L Carbon Dioxide 26 (22-29) mmol/L Anion Gap 16.6 (5-19) BUN 8 (6-20) mg/dL Creatinine 0.6 L (0.7-1.2) mg/dL GFR Calculation 152.4 H (90-130) mL/min Glucose 105 (65-115) mg/dL Calculated Osmolal ity 283 L (285-295) mOsm/k g Calcium 9.5 (8.5-10.5) mg/dL Magnesium 1.7 (1.7-2.3) mg/dL Total Bilirubin 3.2 H (0.15-1.2) mg/dL AST 185 H (0-40) U/L ALT 109 H (0-41) U/L Alkaline Phosphata se 122 (40-130) IU/L Lactate Dehydrogen ase 266 H (135-225) U/L Total Protein 7.0 (6.6-8.7) g/dL Albumin 4.2 (3.5-5.2) g/dL Globulin 2.8 (1.3-4.6) g/dL Lipase 72 H (13-60) U/L Urine Color (Yellow) Urine Appearance (CLEAR) Urine pH (5-7) Ur Specific Gravit y (1.005-1.030) Urine Protein (Negative) Urine Glucose (UA) (Normal) Urine Ketones (Negative) Urine Blood (Negative) Urine Nitrate (Negative) Urine Bilirubin (Negative) Urine Urobilinogen (Negative) mg/dL Ur Leukocyte Pauline ase (Negative) Urine RBC (0-2) /hpf Urine WBC (0-5) /hpf Ur Squamous Epith Cells (0-5) /hpf Amorphous Sediment Urine Bacteria (NONE) /hpf Urine Mucus /hpf 10/28/20 Range/Units 14:56 WBC (4.0-10.0) 10^3/ uL RBC (4.1-5.3) 10^6/u L Hgb (11.7-16.6) g/dL Hct (42.0-52.0) % MCV (80-94) fL MCH (28.0-34.0) pg MCHC (30.0-36.0) g/dL RDW (12.1-15.1) % Plt Count (130-400) 10^3/c mm MPV (7.4-10.4) fL Neut % (Auto) % Lymph % (Auto) % [place] % (Auto) % Eos % (Auto) % Baso % (Auto) % Neut # (Auto) (1.8-7.7) 10^3/u L Lymph # (Auto) (0.8-4.8) 10^3/u L [place] # (Auto) (0.2-0.9) 10^3/u L Eos # (Auto) (0.0-0.8) 10^3/u L Baso # (Auto) (0.0-0.1) 10^3/u L Nucleated RBC % (a uto) % Nucleated RBCs # /100WBC PT (12.1-14.9) SECO NDS INR (0.8-1.2) Sodium (136-145) mmol/L Potassium (3.5-5.1) mmol/L Chloride (98-107) mmol/L Carbon Dioxide (22-29) mmol/L Anion Gap (5-19) BUN (6-20) mg/dL Creatinine (0.7-1.2) mg/dL GFR Calculation (90-130) mL/min Glucose (65-115) mg/dL Calculated Osmolal ity (285-295) mOsm/k g Calcium (8.5-10.5) mg/dL Magnesium (1.7-2.3) mg/dL Total Bilirubin (0.15-1.2) mg/dL AST (0-40) U/L ALT (0-41) U/L Alkaline Phosphata se (40-130) IU/L Lactate Dehydrogen ase (135-225) U/L Total Protein (6.6-8.7) g/dL Albumin (3.5-5.2) g/dL Globulin (1.3-4.6) g/dL Lipase (13-60) U/L Urine Color [place] (Yellow) Urine Appearance Sl hazy (CLEAR) Urine pH 7 (5-7) Ur Specific Gravit y 1.015 (1.005-1.030) Urine Protein Trace (Negative) Urine Glucose (UA) Norm (Normal) Urine Ketones 2+ H (Negative) Urine Blood 3+ H (Negative) Urine Nitrate Negative (Negative) Urine Bilirubin 2+ H (Negative) Urine Urobilinogen 4+ H (Negative) mg/dL Ur Leukocyte Pauline ase Negative (Negative) Urine RBC >100 H (0-2) /hpf Urine WBC 0-4 H (0-5) /hpf Ur Squamous Epith Cells None (0-5) /hpf Amorphous Sediment Not Reportable Urine Bacteria Trace (NONE) /hpf Urine Mucus 1+ /hpf Discharge Plan Discharge Patient Disposition: Home Clinical Impression: Ureterolithiasis, Elev transaminase/LDH Hematuria Qualifiers: Hematuria type: gross Qualified Code(s): R31.0 - Gross hematuria Condition: Stable Prescriptions: New Flomax 0.4 mg capsule 0.4 mg PO DAILY Qty: 14 RF: 0 No Action paroxetine HCl 10 mg Tablet 10 mg PO DAILY 30 Days Qty: 30 RF: 1 Discharge Orders: Discharge ED (Routine); Ordered 10/28/20 Ordered By: Marija Saha Discharge Diet: Usual diet Discharge Activity: Resume usual activity Patient Instructions: Renal Colic (ED), How to Strain Your Urine (ED) Activity Restrictions/Additional Instructions: Try to drink extra fluids. Schedule a follow-up with your primary care doctor in the next 2 to 3 days. Strain your urine. Return immediately to the ER if you develop fever, worsening pain, inability to urinate, vomiting, or any other concerning symptoms. Coding Level of Care Code ED [employer] for Vj Fwd Exam Comprehensive
[2020-10-28] MEDS: lactated ringers 1,000 ML 999 ML IV (14:29)
[2020-10-28 14:45] LABS: Basophils # 0.1 10^3/uL (0.0-0.1); Basophils % 0.6 %; Eosinophils # 0.1 10^3/uL (0.0-0.8); Eosinophils % 1.5 %; Hematocrit 43.8 % (42.0-52.0); Hemoglobin 15.2 g/dL (11.7-16.6); Lymphocytes # 1.3 10^3/uL (0.8-4.8); Lymphocytes % 13.5 %; Mean Corpuscular HGB Conc 34.7 g/dL (30.0-36.0); Mean Corpuscular Hemoglobin 34.5 pg (28.0-34.0); Mean Corpuscular Volume 99.5 fL (80-94); Mean Platelet Volume 9.2 fL (7.4-10.4); Monocytes # 1.2 10^3/uL (0.2-0.9); Monocytes % 12.4 %; Neutrophils # 6.73 10^3/uL (1.8-7.7); Neutrophils % 71.5 %; Nucleated Red Blood Cells % 0 %; Platelet Count 209 10^3/cmm (130-400); Red Cell Distribution Width 12.2 % (12.1-15.1); White Blood Count 9.4 10^3/uL (4.0-10.0)
[2020-10-28 14:57] LABS: INR 1.07 (0.8-1.2)
[2020-10-28 15:01] LABS: Alanine Aminotransferase 109 U/L (0-41); Albumin Level 4.2 g/dL (3.5-5.2); Alkaline Phosphatase 122 IU/L (40-130); Anion Gap 16.6 (5-19); Aspartate Amino Transferase 185 U/L (0-40); Blood Urea Nitrogen 8 mg/dL (6-20); Calcium 9.5 mg/dL (8.5-10.5); Carbon Dioxide 26 mmol/L (22-29); Chloride 98 mmol/L (98-107); Globulin 2.8 g/dL (1.3-4.6); Glomerular Filtration Rate 152.4 mL/min (90-130); Glucose 105 mg/dL (65-115); Lactate Dehydrogenase 266 U/L (135-225); Lipase 72 U/L (13-60); Magnesium 1.7 mg/dL (1.7-2.3); Osmolality Calculated 283 mOsm/kg (285-295); Potassium 3.6 mmol/L (3.5-5.1); Sodium 137 mmol/L (136-145); Total Bilirubin 3.2 mg/dL (0.15-1.2)
[2020-10-28] MEDS: ketorolac 30 mg/mL INJ 15 MG IVP (15:29)
[2020-10-28 15:33] LABS: Specific Gravity, Urine 1.015 (1.005-1.030); Urine Appearance SL Hazy (CLEAR); Urine Color Orange (Yellow); pH Urine 7 (5-7)
[2020-10-28 15:34] LABS: Add Urine Culture? Yes; Bacteria Urine TRACE /hpf; Bilirubin Urine 2+ (Negative); Blood Urine 3+ (Negative); Glucose Urine UA Norm (Normal); Ketones Urine 2+ (Negative); Leukocyte Esterase Urine Negative (Negative); Mucus Urine 1+ /hpf; Nitrate Urine Negative (Negative); Protein Urine Trace (Negative); RBC Urine >100 /hpf (0-2); Urobilinogen Urine 4+ mg/dL (Negative); WBC Urine 0-4 /hpf (0-5)
--- NOTE | 2020-10-28 15:56 | PC.NURSE ---
At time of discharge, family member wanting to know if patient may take additional Fentanyl already prescribed for pain. Patient advised that he should only take Fentanyl at times written by prescribing provider.
[2020-10-28 16:01] VITALS: BP 178/90; PULSE 70; O2SAT 97
== END 2020-10-28 16:02 | disposition home or self-care (01) ==
PROVIDERS: Emergency Provider Family Medicine
DX: N20.1 Calculus of ureter (principal); R31.0 Gross hematuria; R74.01 Elevation of levels of liver transaminase levels; F17.220 Nicotine dependence, chewing tobacco, uncomplicated
CPT/HCPCS: 12345; 74176; 80053; 81001; 83615; 83690; 83735; 85025; 85610; 87086; 96361; 96374; 99283; J1885

== ENCOUNTER 2020-10-29 12:27 | Emergency (ER) | payer BC, SELFPAY ==
[2020-10-29 12:42] VITALS: BP 154/108; PULSE 94; RESP 20; TEMP 36.8; O2SAT 98; BMI 30.4
--- NOTE | 2020-10-29 13:52 | XR_ITS ---
WS: [id number] Exam: XR KUB [id number] Date/Time of Exam: 10/29/2020 1:52 PM Reason For Exam: Kidney stone No bowel obstruction or free air. Visualized organ margins are intact. No abnormal abdominal calcific ations visualized. Bony structures are unremarkable. XR/XR KUB [id number] IMPRESSION: 1. No acute abdominal finding.
--- NOTE | 2020-10-29 16:25 | ED_ITS ---
Documented by User: Roberto Benson DO 10/31/20 09:37 HPI - General Adult General: Chief complaint: General Medical Stated complaint: seen yesterday for kidney stone,back pain Time Seen by Provider: 10/29/20 16:00 History of Present Illness: HPI narrative: 35-year-old male was seen overnight last night with nephrolithiasis had 3 2 mm stones of the left UVJ. Comes in, now complaining of uncontrollable pain. Reviewing chart from us that he was discharged home with Flomax but no pain medication. Patient complaining of nausea and vomiting due to extreme pain Onset (ago): hour(s) Location: left (Flank) Radiation: other (Groin) Severity: severe Severity scale (1-10): 10 Quality: sharp Pain Consistency: constant Exacerbating factors: none Associated symptoms: Deny chest pain, confusion, cough, diaphoresis, decreased appetite, dyspnea, fevers/chills, headache(s), malaise, nausea, rash, palpitations, seizures, short of breath, syncope, vomiting or weakness Treatments prior to arrival: none Review of Systems Const: Denies: malaise or diaphoresis ENMT: Denies: throat pain, ear or mastoid pain, nasal discharge or nasal congestion Card: Denies: chest pain, palpitations or syncope Resp: Denies: dyspnea GI: Denies: nausea or vomiting : Denies: flank pain, dysuria, urinary frequency or urinary urgency Skin/Breast: Denies: rash Neuro: Denies: headache(s) or confusion PFSH ED PFSH: Medical History (Updated 10/29/20 @ 18:19 by Jensen Sheldon MD) Alcohol intoxication Major depression Suicidal ideation Ureterolithiasis Social History Smoking and tobacco status: current every day smoker smokeless tobacco Smokeless tobacco user: chewing tobacco Smokeless tobacco details: 1 can per day for 20 years. Quit status (tobacco): considering quitting Second hand smoke exposure: No Current gender identity: Male Physical Exam Const: COMMON NORMALS: no acute distress GENERAL APPEARANCE: cooperative and comfortable ORIENTATION/CONSCIOUSNESS: Yes awake, Yes oriented to person, Yes oriented to place and Yes oriented to time HENMT: COMMON NORMALS: normocephalic, atraumatic and hearing grossly normal bilaterally HEAD & SCALP: normocephalic and atraumatic Neck/C-Spine: COMMON NORMALS: no JVD Resp: COMMON NORMALS: normal respiratory effort, No retractions, No use of accessory muscles and clear to auscultation bilaterally AUSCULTATION: clear to auscultation bilaterally Cardio: COMMON NORMALS: no JVD, regular rate, regular rhythm and No murmurs present (Cardio) RATE: regular rate RHYTHM: regular rhythm GI: COMMON NORMALS: Soft to palpation and No hepatosplenomegaly present AUSCULTATION: Yes normoactive bowel sounds PALPATION: Yes Soft to palpation, No Tenderness to palpation present (GI), No Guarding due to palpation present (GI) and Yes No hepatosplenomegaly present Extremity: COMMON NORMALS: normal to inspection, capillary refill normal, no clubbing, cyanosis or edema, no calf tenderness and no pedal edema Neuro: SENSORIUM/ORIENTATION: Yes oriented to person, Yes oriented to place and Yes oriented to time Skin: COMMON NORMALS: no rashes or lesions noted GENERAL SKIN EXAM: no rashes or lesions noted Course Vital Signs: Vital signs: Vital Signs Temperature 98.2 F 10/29/20 12:42 Pulse Rate 70 10/29/20 18:34 Respiratory Rate 16 10/29/20 18:34 Blood Pressure 158/89 10/29/20 18:34 Pulse Oximetry 98 10/29/20 18:34 MDM - General Adult MDM Narrative: Medical decision making narrative: Patient returns with multiple kidney stones from yesterday. He is not given any prescription pain medications that he is having severe pain patient goes for low-dose pain medicine at the time of change of shift they are waiting to see if his pain had improved care turned over to Dr. Sheldon see his note for disposition. Lab Data: Labs: Lab Results 10/29/20 10/29/20 10/29/20 Range/Units 17:10 17:19 17:19 WBC 10.8 H (4.0-10.0) 10^3/ uL RBC 4.33 (4.1-5.3) 10^6/u L Hgb 14.9 (11.7-16.6) g/dL Hct 42.9 (42.0-52.0) % MCV 99.1 H (80-94) fL MCH 34.4 H (28.0-34.0) pg MCHC 34.7 (30.0-36.0) g/dL RDW 12.0 L (12.1-15.1) % Plt Count 236 (130-400) 10^3/c mm MPV 9.7 (7.4-10.4) fL Neut % (Auto) 80.2 % Lymph % (Auto) 8.8 % [place] % (Auto) 10.0 % Eos % (Auto) 0.2 % Baso % (Auto) 0.3 % Neut # (Auto) 8.67 H (1.8-7.7) 10^3/u L Lymph # (Auto) 1.0 (0.8-4.8) 10^3/u L [place] # (Auto) 1.1 H (0.2-0.9) 10^3/u L Eos # (Auto) 0.0 (0.0-0.8) 10^3/u L Baso # (Auto) 0.0 (0.0-0.1) 10^3/u L Nucleated RBC % (a uto) 0 % Nucleated RBCs # 0.0 /100WBC Sodium 139 (136-145) mmol/L Potassium 3.7 (3.5-5.1) mmol/L Chloride 97 L (98-107) mmol/L Carbon Dioxide 26 (22-29) mmol/L Anion Gap 19.7 H (5-19) BUN 10 (6-20) mg/dL Creatinine 0.9 (0.7-1.2) mg/dL GFR Calculation 95.5 (90-130) mL/min Glucose 100 (65-115) mg/dL Calculated Osmolal ity 287 (285-295) mOsm/k g Calcium 10.3 (8.5-10.5) mg/dL Urine Color [place] (Yellow) Urine Appearance Turbid (CLEAR) Urine pH 6 (5-7) Ur Specific Gravit y 1.020 (1.005-1.030) Urine Protein 1+ H (Negative) Urine Glucose (UA) Norm (Normal) Urine Ketones 2+ H (Negative) Urine Blood 2+ H (Negative) Urine Nitrate Positive H (Negative) Urine Bilirubin 2+ H (Negative) Urine Urobilinogen 4+ H (Negative) mg/dL Ur Leukocyte Pauline ase Trace H (Negative) Urine RBC 0-4 H (0-2) /hpf Urine WBC 5-10 H (0-5) /hpf Ur Squamous Epith Cells 0-4 H (0-5) /hpf Calcium Oxalate Cr ystal 5-10 H /hpf Amorphous Sediment 4+ /hpf Urine Bacteria 1+ H (NONE) /hpf Urine Mucus 2+ /hpf Discharge Plan Discharge Patient Disposition: Home Clinical Impression: Kidney stone Condition: Stable Prescriptions: [place] 5-325 mg tablet 1 tab PO Q6H PRN (Reason: pain) Qty: 14 RF: 0 ondansetron 4 mg tablet,disintegrating 4 mg PO Q6H PRN (Reason: nausea and vomiting) Qty: 14 RF: 0 No Action citalopram 40 mg tablet 40 mg PO DAILY@0530 RF: 0 tamsulosin 0.4 mg capsule 0.4 mg PO DAILY@0530 RF: 0 trazodone 150 mg tablet 150 mg PO DAILY@1900 RF: 0 lorazepam 1 mg tablet 1 mg PO TID PRN (Reason: Anxiety) RF: 0 amlodipine-benazepril 5-40 mg capsule 1 cap PO DAILY@0530 RF: 0 Discharge Orders: Discharge ED (Routine); Ordered 10/29/20 Ordered By: Jensen Sheldon Referrals: Alexi Cota MD [Physician] - 1-3 days Discharge Diet: Advance as tolerated Discharge Activity: Resume usual activity Patient Instructions: Kidney Stones (ED) Coding Level of Care Code ED Motion Picture Camera Lens Technician for Chg Fwd Exam Comprehensive Documented by User: Jensen Sheldon MD 10/29/20 18:25 HPI - General Adult General: Chief complaint: General Medical Stated complaint: seen yesterday for kidney stone,back pain Time Seen by Provider: 10/29/20 16:00 PFSH ED PFSH: Medical History (Updated 10/29/20 @ 18:19 by Jensen Sheldon MD) Alcohol intoxication Major depression Suicidal ideation Ureterolithiasis Social History Smoking and tobacco status: current every day smoker smokeless tobacco Smokeless tobacco user: chewing tobacco Smokeless tobacco details: 1 can per day for 20 years. Quit status (tobacco): considering quitting Second hand smoke exposure: No Current gender identity: Male Course Vital Signs: Vital signs: Vital Signs Temperature 98.2 F 10/29/20 12:42 Pulse Rate 70 10/29/20 18:34 Respiratory Rate 16 10/29/20 18:34 Blood Pressure 158/89 10/29/20 18:34 Pulse Oximetry 98 10/29/20 18:34 MDM - General Adult MDM Narrative: Medical decision making narrative: Patient presents with kidney stone. There is a small stone is likely passed. He was not prescribed any pain meds and we will put him on hydrocodone. He is to follow-up with Dr. Cota and return if worsening. Lab Data: Labs: Lab Results 10/29/20 10/29/20 10/29/20 Range/Units 17:10 17:19 17:19 WBC 10.8 H (4.0-10.0) 10^3/ uL RBC 4.33 (4.1-5.3) 10^6/u L Hgb 14.9 (11.7-16.6) g/dL Hct 42.9 (42.0-52.0) % MCV 99.1 H (80-94) fL MCH 34.4 H (28.0-34.0) pg MCHC 34.7 (30.0-36.0) g/dL RDW 12.0 L (12.1-15.1) % Plt Count 236 (130-400) 10^3/c mm MPV 9.7 (7.4-10.4) fL Neut % (Auto) 80.2 % Lymph % (Auto) 8.8 % [place] % (Auto) 10.0 % Eos % (Auto) 0.2 % Baso % (Auto) 0.3 % Neut # (Auto) 8.67 H (1.8-7.7) 10^3/u L Lymph # (Auto) 1.0 (0.8-4.8) 10^3/u L [place] # (Auto) 1.1 H (0.2-0.9) 10^3/u L Eos # (Auto) 0.0 (0.0-0.8) 10^3/u L Baso # (Auto) 0.0 (0.0-0.1) 10^3/u L Nucleated RBC % (a uto) 0 % Nucleated RBCs # 0.0 /100WBC Sodium 139 (136-145) mmol/L Potassium 3.7 (3.5-5.1) mmol/L Chloride 97 L (98-107) mmol/L Carbon Dioxide 26 (22-29) mmol/L Anion Gap 19.7 H (5-19) BUN 10 (6-20) mg/dL Creatinine 0.9 (0.7-1.2) mg/dL GFR Calculation 95.5 (90-130) mL/min Glucose 100 (65-115) mg/dL Calculated Osmolal ity 287 (285-295) mOsm/k g Calcium 10.3 (8.5-10.5) mg/dL Urine Color [place] (Yellow) Urine Appearance Turbid (CLEAR) Urine pH 6 (5-7) Ur Specific Gravit y 1.020 (1.005-1.030) Urine Protein 1+ H (Negative) Urine Glucose (UA) Norm (Normal) Urine Ketones 2+ H (Negative) Urine Blood 2+ H (Negative) Urine Nitrate Positive H (Negative) Urine Bilirubin 2+ H (Negative) Urine Urobilinogen 4+ H (Negative) mg/dL Ur Leukocyte Pauline ase Trace H (Negative) Urine RBC 0-4 H (0-2) /hpf Urine WBC 5-10 H (0-5) /hpf Ur Squamous Epith Cells 0-4 H (0-5) /hpf Calcium Oxalate Cr ystal 5-10 H /hpf Amorphous Sediment 4+ /hpf Urine Bacteria 1+ H (NONE) /hpf Urine Mucus 2+ /hpf Discharge Plan Discharge Patient Disposition: Home Clinical Impression: Kidney stone Condition: Stable Prescriptions: [place] 5-325 mg tablet 1 tab PO Q6H PRN (Reason: pain) Qty: 14 RF: 0 ondansetron 4 mg tablet,disintegrating 4 mg PO Q6H PRN (Reason: nausea and vomiting) Qty: 14 RF: 0 No Action citalopram 40 mg tablet 40 mg PO DAILY@0530 RF: 0 tamsulosin 0.4 mg capsule 0.4 mg PO DAILY@0530 RF: 0 trazodone 150 mg tablet 150 mg PO DAILY@1900 RF: 0 lorazepam 1 mg tablet 1 mg PO TID PRN (Reason: Anxiety) RF: 0 amlodipine-benazepril 5-40 mg capsule 1 cap PO DAILY@0530 RF: 0 Discharge Orders: Discharge ED (Routine); Ordered 10/29/20 Ordered By: Jensen Sheldon Referrals: Alexi Cota MD [Physician] - 1-3 days Discharge Diet: Advance as tolerated Discharge Activity: Resume usual activity Patient Instructions: Kidney Stones (ED) Coding Level of Care Code ED Motion Picture Camera Lens Technician for Chg Fwd Exam Comprehensive
[2020-10-29 17:23] VITALS: RESP 16
[2020-10-29] MEDS: morphine 4 mg/mL SDV 1 mL IVP (17:23)
[2020-10-29] MEDS: ondansetron 2 mg/ML SDV 2 mL 4 MG IVP (17:23)
[2020-10-29 17:28] VITALS: BP 159/105; PULSE 78; RESP 18; O2SAT 96
[2020-10-29 17:29] LABS: Basophils % 0.3 %; Eosinophils % 0.2 %; Hematocrit 42.9 % (42.0-52.0); Hemoglobin 14.9 g/dL (11.7-16.6); Lymphocytes % 8.8 %; Mean Corpuscular HGB Conc 34.7 g/dL (30.0-36.0); Mean Corpuscular Hemoglobin 34.4 pg (28.0-34.0); Mean Corpuscular Volume 99.1 fL (80-94); Mean Platelet Volume 9.7 fL (7.4-10.4); Monocytes # 1.1 10^3/uL (0.2-0.9); Neutrophils # 8.67 10^3/uL (1.8-7.7); Neutrophils % 80.2 %; Nucleated Red Blood Cells % 0 %; Platelet Count 236 10^3/cmm (130-400); Red Blood Count 4.33 10^6/uL (4.1-5.3); White Blood Count 10.8 10^3/uL (4.0-10.0)
[2020-10-29 18:00] LABS: Anion Gap 19.7 (5-19); Blood Urea Nitrogen 10 mg/dL (6-20); Calcium 10.3 mg/dL (8.5-10.5); Carbon Dioxide 26 mmol/L (22-29); Chloride 97 mmol/L (98-107); Glomerular Filtration Rate 95.5 mL/min (90-130); Glucose 100 mg/dL (65-115); Osmolality Calculated 287 mOsm/kg (285-295); Potassium 3.7 mmol/L (3.5-5.1); Sodium 139 mmol/L (136-145)
[2020-10-29 18:34] VITALS: BP 158/89; PULSE 70; RESP 16; O2SAT 98
[2020-10-29 20:25] LABS: Urine Appearance Turbid (CLEAR); Urine Color Orange (Yellow); pH Urine 6 (5-7)
[2020-10-29 20:26] LABS: Add Urine Microscopic? YES; Bilirubin Urine 2+ (Negative); Blood Urine 2+ (Negative); Glucose Urine UA Norm (Normal); Ketones Urine 2+ (Negative); Leukocyte Esterase Urine Trace (Negative); Nitrate Urine Positive (Negative); Protein Urine 1+ (Negative); Urobilinogen Urine 4+ mg/dL (Negative)
[2020-10-29 20:37] LABS: RBC Urine 0-4 /hpf (0-2); Squamous Epithelial Cell Urine 0-4 /hpf (0-5)
[2020-10-29 20:38] LABS: Add Urine Culture? No; Amorphous Sediment Urine 4+ /hpf; Bacteria Urine 1+ /hpf; Mucus Urine 2+ /hpf
--- NOTE | 2020-10-30 09:28 | DCPLANNER ---
manager games had message to schedule a follow up appointment for patient with Dr. Cota. manager games called the office of Dr. Cota, spoke with Kristie, gave clinic patients information. manager games was told that patients information would be printed and reviewed. Clinic will call patient with appointment information.
--- NOTE | 2020-11-02 11:16 | DCPLANNER ---
Patient had a follow up appointment scheduled for 10.31.[address] Cota - patient did attend appointment.
== END 2020-10-29 18:35 | disposition home or self-care (01) ==
PROVIDERS: Family Medicine; Nurse Practitioner Family; Emergency Provider Emergency Medicine
DX: N20.0 Calculus of kidney (principal); Z87.442 Personal history of urinary calculi; F17.220 Nicotine dependence, chewing tobacco, uncomplicated
CPT/HCPCS: 12345; 74018; 80048; 81001; 85025; 96374; 96375; 99283; J2270; J2405

== ENCOUNTER 2020-10-31 12:00 | Outpatient (CLI) | payer BC, SELFPAY ==
--- NOTE | 2020-10-31 12:06 | XRR_ITS ---
PROCEDURE INFORMATION: Exam: XR Abdomen, 1 View Exam date and time: 10/31/2020 12:22 PM Age: 35 years old Clinical indication: Condition or disease; Kidney or ureter condition; Calculus (stone) in kidney; Additional info: Kidney stone TECHNIQUE: Imaging protocol: XR of the abdomen. Views: Frontal supine view of the abdomen. 1 View. COMPARISON: 1. CT kidney stone [id number] 10/28/2020 2:34:01 PM 2. CR XR KUB [id number] 10/29/2020 2:07 PM FINDINGS: Gastrointestinal tract: Normal. No bowel dilation. Organs: No definite renal calculus, the kidneys are partially obscured. Bones/joints: No acute findings. XR/XR KUB [id number] IMPRESSION: No acute findings.
== END 2020-10-31 12:01 | disposition home or self-care (01) ==
LOC: RAD 12:04
PROVIDERS: Visit Provider Urology
DX: N20.0 Calculus of kidney (principal)
CPT/HCPCS: 74018

== ENCOUNTER → 2021-01-11 13:01 | Outpatient (BNVA) | payer BC, SELFPAY | PROVIDERS: PCP Nurse Practitioner; Visit Provider Psychiatry & Neurology Psychiatry | DX: F10.20 Alcohol dependence, uncomplicated (principal); F33.1 Major depressive disorder, recurrent, moderate | CPT/HCPCS: 99214 ==

== ENCOUNTER 2021-10-20 16:14 | Emergency (ER) | payer BC, SELFPAY ==
--- NOTE | 2021-10-20 16:26 | XRR_ITS ---
PROCEDURE INFORMATION: Exam: XR Left Ribs with PA Chest Exam date and time: 10/20/2021 4:26 PM Age: 36 years old Clinical indication: Other: Pain on lt lateral side of ribs, immediately under breast and lt armpit and radiates to the stomach; Additional info: Rib pain TECHNIQUE: Imaging protocol: XR Left ribs with PA chest. Views: 3 views COMPARISON: CR XR KUB [id number] 10/31/2020 12:20 PM FINDINGS: Lungs: Mild atelectasis versus fibrosis at the lung bases. No consolidative pulmonary infiltrate noted. Pleural spaces: No pleural effusion. No pneumothorax. Heart/Mediastinum: Unremarkable. No cardiomegaly. Bones/joints: No left rib fracture or other osseous abnormality. XR/XR ribs LT mn 3V w CXR1V [id number] IMPRESSION: 1. No left rib fracture or other osseous abnormality. 2. Mild atelectasis versus fibrosis at the lung bases. No consolidative pulmonary infiltrate noted.
[2021-10-20 16:29] VITALS: BP 129/85; PULSE 114; RESP 18; TEMP 36.6; O2SAT 94; BMI 33.4
--- NOTE | 2021-10-20 16:31 | ED_ITS ---
HPI - General Adult General: Stated complaint: LEFT RIB PAIN History of Present Illness: Associated symptoms: Deny chest pain, dyspnea, headache(s), nausea, rash or vomiting Review of Systems Const: Denies: fever(s), chills, body aches or change in appetite Eyes: Denies: blurry vision or eye discomfort ENMT: Denies: throat pain or dental pain Card: Denies: chest pain Resp: Denies: dyspnea GI: Denies: abdominal pain, nausea, vomiting or diarrhea : Denies: dysuria Musc: Reports: extremity pain Skin/Breast: Denies: rash Neuro: Denies: headache(s) Psych: Denies: depression Tristian/Lymph: Denies: easy bruising All/Imm: Denies: urticaria PFSH ED PFSH: Medical History Alcohol intoxication Major depression Suicidal ideation Ureterolithiasis Social History Smoking and tobacco status: current every day smoker smokeless tobacco Smokeless tobacco user: chewing tobacco Smokeless tobacco details: 1 can per day for 20 years. Quit status (tobacco): considering quitting Second hand smoke exposure: No Alcohol intake: current Alcohol intake frequency: few times a week Marital status: Current occupational status: employed Current gender identity: Male Discharge Plan Discharge Prescriptions: No Action omeprazole 20 mg capsule,delayed release(DR/EC) 20 mg PO DAILY RF: 0 citalopram 40 mg tablet 40 mg PO DAILY@0530 RF: 0 trazodone 150 mg tablet 150 mg PO DAILY@1900 RF: 0 lorazepam 1 mg tablet 1 mg PO TID PRN (Reason: Anxiety) RF: 0 amlodipine-benazepril 5-40 mg capsule 1 cap PO DAILY@0530 RF: 0 Holley 5-325 mg tablet 1 tab PO Q6H PRN (Reason: pain) Qty: 14 RF: 0 ondansetron 4 mg tablet,disintegrating 4 mg PO Q6H PRN (Reason: nausea and vomiting) Qty: 14 RF: 0 Coding Level of Care Code ED Digital Photographic Printer for Vj Hardy
--- NOTE | 2021-10-20 20:40 | CTR_ITS ---
PROCEDURE INFORMATION: Exam: CT Abdomen And Pelvis With Contrast Exam date and time: 10/20/2021 8:40 PM Age: 36 years old Clinical indication: Injury or trauma; Fall; Blunt; Injury details: Bruising luq; Additional info: Eval splenic injury +abd bleeding TECHNIQUE: Imaging protocol: Computed tomography of the abdomen and pelvis with contrast. Radiation optimization: All CT scans at this facility use at least one of these dose optimization techniques: automated exposure control; mA and/or kV adjustment per patient size (includes targeted exams where dose is matched to clinical indication); or iterative reconstruction. Contrast material: OMNI 300; Contrast volume: 95 ml; Contrast route: INTRAVENOUS (IV); COMPARISON: CT kidney stone [id number] 10/28/2020 2:34 PM RADIATION DOSE METRICS: Total DLP (mGy-cm): 1945.99 FINDINGS: Liver: Hepatomegaly and decreased hepatic density noted, consistent with hepatic steatosis. Minimal perihepatic ascites noted, suggesting superimposed hepatic cirrhosis. Gallbladder and bile ducts: No calcified gallstones in the gallbladder. No gallbladder wall thickening. No pericholecystic fluid. No biliary dilatation. Pancreas: The pancreas is normal in appearance. No pancreatic duct dilatation. Spleen: The spleen is normal in size and appearance. Adrenal glands: Unremarkable. No mass. Kidneys and ureters: Simple appearing 10 mm right renal cysts. No solid renal masses. No hydronephrosis. The ureters appear unremarkable. Stomach and bowel: No acute gastric abnormality demonstrated. The small bowel is unremarkable as demonstrated. Appendix: The appendix is normal in appearance. No evidence of appendicitis. Intraperitoneal space: Minimal perihepatic ascites noted. Mild ascites in the paracolic gutters. The abdominal wall demonstrates a small umbilical hernia, containing minimal ascites and fat. Vasculature: No abdominal aortic aneurysm. Lymph nodes: No pathologically enlarged lymph nodes. Urinary bladder: The urinary bladder is unremarkable in appearance. Reproductive: Unremarkable as visualized. Bones/joints: There is a subtle acute nondisplaced fracture of the left posterolateral 9th rib. This is best seen on sagittal reformatted images 15 and 16. There is a nondisplaced healing fracture of the left seventh posterolateral rib. Soft tissues: Unremarkable. No soft tissue hematoma demonstrated. CT/CT abdomen pelvis w con* [id number] IMPRESSION: 1. There is a subtle acute nondisplaced fracture of the left posterolateral 9th rib. This is best seen on sagittal reformatted images 15 and 16. This is not demonstrated on the previous XR left rib series of 10/20/2021. 2. There is a nondisplaced healing fracture of the left seventh posterolateral rib. 3. Hepatomegaly and decreased hepatic density noted, consistent with hepatic steatosis. Minimal perihepatic ascites noted, suggesting superimposed hepatic cirrhosis. 4. The abdominal wall demonstrates a small umbilical hernia, containing minimal ascites and fat. COMMENTS: Consistent with the [employer]'s Incidental Findings Committee white paper (J Am Yobani Radiol 2018): Any incidental renal lesion less than 1 cm or classified as too small to characterize, or any incidental cystic renal lesion characterized as simple-appearing, is likely benign. No follow-up imaging is recommended for these lesions per consensus recommendations based on imaging criteria.
[2021-10-20] MEDS: iohexol 300 mg/mL 100 mL Btl IV (21:05)
[2021-10-20 21:08] LABS: Basophils # 0.1 10^3/uL (0.0-0.1); Basophils % 0.4 %; Eosinophils % 0.3 %; Hematocrit 38.8 % (42.0-52.0); Hemoglobin 13.9 g/dL (11.7-16.6); Lymphocytes # 1.5 10^3/uL (0.8-4.8); Lymphocytes % 11.4 %; Mean Corpuscular HGB Conc 35.8 g/dL (30.0-36.0); Mean Corpuscular Hemoglobin 35.5 pg (28.0-34.0); Mean Platelet Volume 9.7 fL (7.4-10.4); Monocytes # 1.3 10^3/uL (0.2-0.9); Monocytes % 10.5 %; Neutrophils # 9.72 10^3/uL (1.8-7.7); Neutrophils % 76.8 %; Nucleated Red Blood Cells % 0.2 %; Platelet Count 190 10^3/cmm (130-400); Red Blood Count 3.92 10^6/uL (4.1-5.3); White Blood Count 12.7 10^3/uL (4.0-10.0)
[2021-10-20 21:22] VITALS: RESP 18
[2021-10-20] MEDS: morphine 4 mg/mL SDV 1 mL 2 MG IVP (21:22)
[2021-10-20 21:24] LABS: Alanine Aminotransferase 45 U/L (0-41); Alkaline Phosphatase 317 IU/L (40-130); Anion Gap 19.1 (5-19); Aspartate Amino Transferase 155 U/L (0-40); Blood Urea Nitrogen 6 mg/dL (6-20); Calcium 7.9 mg/dL (8.5-10.5); Carbon Dioxide 24 mmol/L (22-29); Chloride 97 mmol/L (98-107); Globulin 3.4 g/dL (1.3-4.6); Glomerular Filtration Rate 108.8 mL/min (90-130); Glucose 107 mg/dL (65-115); Osmolality Calculated 282 mOsm/kg (285-295); Potassium 3.1 mmol/L (3.5-5.1); Sodium 137 mmol/L (136-145); Total Bilirubin 4.7 mg/dL (0.15-1.2); Total Protein 6.4 g/dL (6.6-8.7)
--- NOTE | 2021-10-20 21:31 | W.ED.GENADLT ---
HPI - General Adult General: Chief complaint: General Medical Stated complaint: LEFT RIB PAIN Time Seen by Provider: 10/20/21 20:21 History of Present Illness: HPI narrative: Patient is a 36-year-old male who presents emergency room with complaints of acute on chronic LUQ, left-sided flank pain x 3 hrs. Patient tells me that he first began having left chest and flank pain after he was cutting wood and tripped over a log and landed on his side. Patient went to [facility] and had an x-ray done that was negative for any acute findings. Earlier today, patient was taking a shower and he noticed a sudden onset of L lateral chest pain and a popping sensation. Patient presents the emergency room for evaluation. On arrival, patient has left upper quadrant dull pain. Denies any nausea/vomiting, fever/chills, cough, runny nose, sore throat, diarrhea, melena or hematochezia Onset:3 hrs acutely, 1 week ago chronically Duration:ongoing Location:home Severity:moderate/severe Review of Systems Narrative: Constitutional: No fever, no chills. HEENT: No vision changes CV: +L lateral chest pain, no palpitations PULM: no cough, no dyspnea. GI: +LUQ abdominal pain, +L flank pain, no N/V/D. : No dysuria MSKEL: No muscle pain SKIN: No new rashes, no lesions. NEURO: No headache, no focal weakness. HEME: No visible bruises PSYCH: Normal mood PFSH ED PFSH: Medical History Alcohol intoxication Major depression Suicidal ideation Ureterolithiasis Social History Smoking and tobacco status: current every day smoker smokeless tobacco Smokeless tobacco user: chewing tobacco Smokeless tobacco details: 1 can per day for 20 years. Quit status (tobacco): considering quitting Second hand smoke exposure: No Alcohol intake: current Alcohol intake frequency: few times a week Marital status: Current occupational status: employed Current gender identity: Male Physical Exam Narrative: EXAM NARRATIVE: Head: Atraumatic Eyes: PERRL, conjunctiva without injection ENT: Mucous membrane moist NECK: Supple, ROM intact LUNGS: LCTAB, no crackles/rhonchi CV: RRR ABDOMEN: Soft, nontender in all quadrants EXTREMITY: Normal ROM SKIN: No rash or erythema NEURO: Awake and alert, no focal motor deficits PSYCH: Normal mood and affect Course Vital Signs: Vital signs: Vital Signs Temperature 97.9 F 10/20/21 16:29 Pulse Rate 97 10/20/21 22:16 Respiratory Rate 17 10/20/21 22:16 Blood Pressure 144/83 10/20/21 22:16 Pulse Oximetry 92 10/20/21 22:16 MDM - General Adult MDM Narrative: Medical decision making narrative: 36-year-old male with an episode of fall previously presenting to the emergency room with complaints of persistent and worsening left flank/left upper quadrant, left lower chest pain. On exam, patient has focal tenderness palpation the left lower quadrant. X-ray CT negative for any acute finding. Will evaluate for occult fractures and splenic injuries. Patient is noted to have potassium of 3.1. Patient status post potassium tablet. T bili is noted to be 4.6. CT showed acute nondisplaced fx of L 9th rib and L 7th rib. Signs of splenic injuries on CT scan. His pain improved with medicine. Discussed the T bili elevation with patient thoroughly and instructed patient to follow-up with a primary care provider for further evaluation of his elevated bilirubin. I have given patient follow up with our case picker to be seen by our outpatient Orthopedics. Patient aware of a call from our case picker to schedule for appointment(s) and verbalizes understanding of the importance of following up. Rx percocet PRN pain, incentive spirometer, and lidocaine patch PRN pain Disposition: Discharge. Patient counseled regarding diagnostic impression, treatment plan. Patient given ED strict return precautions to return for continuation, worsening, or development of new symptoms. Instructed to f/u w/ PCP regarding symptoms today. Patient verbalized understanding. Lab Data: Labs: Lab Results 10/20/21 10/20/21 20:55 20:55 WBC 12.7 10^3/uL H 10 ^3/uL (4.0-10.0) RBC 3.92 10^6/uL L 10 ^6/uL (4.1-5.3) Hgb 13.9 g/dL g/dL (11.7-16.6) Hct 38.8 % L % (42.0-52.0) MCV 99.0 fl H fl (80-94) MCH 35.5 pg H pg (28.0-34.0) MCHC 35.8 g/dL g/dL (30.0-36.0) RDW 15.0 % % (12.1-15.1) Plt Count 190 10^3/cmm 10^3 /cmm (130-400) MPV 9.7 fL fL (7.4-10.4) Neut % (Auto) 76.8 % % Lymph % (Auto) 11.4 % % [place] % (Auto) 10.5 % % Eos % (Auto) 0.3 % % Baso % (Auto) 0.4 % % Neut # (Auto) 9.72 10^3/uL H 10 ^3/uL (1.8-7.7) Lymph # (Auto) 1.5 10^3/uL 10^3/ uL (0.8-4.8) [place] # (Auto) 1.3 10^3/uL H 10^ 3/uL (0.2-0.9) Eos # (Auto) 0.0 10^3/uL 10^3/ uL (0.0-0.8) Baso # (Auto) 0.1 10^3/uL 10^3/ uL (0.0-0.1) Nucleated RBC % (a uto) 0.2 % % Nucleated RBCs # 0.0 /100WBC /100W BC Sodium 137 mmol/L mmol/L (136-145) Potassium 3.1 mmol/L L mmol /L (3.5-5.1) Chloride 97 mmol/L L mmol/ L (98-107) Carbon Dioxide 24 mmol/L mmol/L (22-29) Anion Gap 19.1 H (5-19) BUN 6 mg/dL mg/dL (6-20) Creatinine 0.8 mg/dL mg/dL (0.7-1.2) GFR Calculation 108.8 mL/min mL/m in (90-130) Glucose 107 mg/dL mg/dL (65-115) Calculated Osmolal ity 282 mOsm/kg L mOs m/kg (285-295) Calcium 7.9 mg/dL L mg/dL (8.5-10.5) Total Bilirubin 4.7 mg/dL H mg/dL (0.15-1.2) AST 155 U/L H U/L (0-40) ALT 45 U/L H U/L (0-41) Alkaline Phosphata se 317 IU/L H IU/L (40-130) Total Protein 6.4 g/dL L g/dL (6.6-8.7) Albumin 3.0 g/dL L g/dL (3.5-5.2) Globulin 3.4 g/dL g/dL (1.3-4.6) Lipase 493 U/L H U/L (13-60) Imaging Data^: Other Imaging: Radiologist's impression: [employer] [place] [address].[place], [place] [id number] Scan ReportSigned Patient: Grady Castillo #: [id number]: 1985Acct#:[id number]/Sex: 36 / MADM Date: 10/20/21Loc: ERRoom/Bed:Attending Dr: Ordering Provider/Ordering MD: Kia Martínez MD Date of Service: 10/20/21 Procedure(s): CT abdomen pelvis w con* [id number] Accession Number(s): [id number] Report Number: [id number] PROCEDURE INFORMATION: Exam: CT Abdomen And Pelvis With Contrast Exam date and time: 10/20/2021 8:40 PM Age: 36 years old Clinical indication: Injury or trauma; Fall; Blunt; Injury details: Bruising luq; Additional info: Eval splenic injury +abd bleeding TECHNIQUE: Imaging protocol: Computed tomography of the abdomen and pelvis with contrast. Radiation optimization: All CT scans at this facility use at least one of these dose optimization techniques: automated exposure control; mA and/or kV adjustment per patient size (includes targeted exams where dose is matched to clinical indication); or iterative reconstruction. Contrast material: OMNI 300; Contrast volume: 95 ml; Contrast route: INTRAVENOUS (IV); COMPARISON: CT kidney stone [id number] 10/28/2020 2:34 PM RADIATION DOSE METRICS: Total DLP (mGy-cm): 1945.99 FINDINGS: Liver: Hepatomegaly and decreased hepatic density noted, consistent with hepatic steatosis. Minimal perihepatic ascites noted, suggesting superimposed hepatic cirrhosis. Gallbladder and bile ducts: No calcified gallstones in the gallbladder. No gallbladder wall thickening. No pericholecystic fluid. No biliary dilatation. Pancreas: The pancreas is normal in appearance. No pancreatic duct dilatation. Spleen: The spleen is normal in size and appearance. Adrenal glands: Unremarkable. No mass. Kidneys and ureters: Simple appearing 10 mm right renal cysts. No solid renal masses. No hydronephrosis. The ureters appear unremarkable. Stomach and bowel: No acute gastric abnormality demonstrated. The small bowel is unremarkable as demonstrated. Appendix: The appendix is normal in appearance. No evidence of appendicitis. Intraperitoneal space: Minimal perihepatic ascites noted. Mild ascites in the paracolic gutters. The abdominal wall demonstrates a small umbilical hernia, containing minimal ascites and fat. Vasculature: No abdominal aortic aneurysm. Lymph nodes: No pathologically enlarged lymph nodes. Urinary bladder: The urinary bladder is unremarkable in appearance. Reproductive: Unremarkable as visualized. Bones/joints: There is a subtle acute nondisplaced fracture of the left posterolateral 9th rib. This is best seen on sagittal reformatted images 15 and 16. There is a nondisplaced healing fracture of the left seventh posterolateral rib. Soft tissues: Unremarkable. No soft tissue hematoma demonstrated. CT/CT abdomen pelvis w con* [id number] IMPRESSION: 1. There is a subtle acute nondisplaced fracture of the left posterolateral 9th rib. This is best seen on sagittal reformatted images 15 and 16. This is not demonstrated on the previous XR left rib series of 10/20/2021. 2. There is a nondisplaced healing fracture of the left seventh posterolateral rib. 3. Hepatomegaly and decreased hepatic density noted, consistent with hepatic steatosis. Minimal perihepatic ascites noted, suggesting superimposed hepatic cirrhosis. 4. The abdominal wall demonstrates a small umbilical hernia, containing minimal ascites and fat. COMMENTS: Consistent with the [employer]'s Incidental Findings Committee white paper (J Am Yobani Radiol 2018): Any incidental renal lesion less than 1 cm or classified as too small to characterize, or any incidental cystic renal lesion characterized as simple-appearing, is likely benign. No follow-up imaging is recommended for these lesions per consensus recommendations based on imaging criteria. Dictated By:Scott Martin MDSigned By:Scott Martin MDSigned Date/Time:10/20/[address] [id number] ReportSigned Patient: Grady Castillo #: [id number]: 1985Acct#:[id number]/Sex: 36 / MADM Date: 10/20/21Loc: ERRoom/Bed:Attending Dr: Ordering Provider/Ordering MD: Jensen Sheldon MD Date of Service: 10/20/21 Procedure(s): XR ribs LT mn 3V w CXR1V [id number] Accession Number(s): [id number] Report Number: [id number] PROCEDURE INFORMATION: Exam: XR Left Ribs with PA Chest Exam date and time: 10/20/2021 4:26 PM Age: 36 years old Clinical indication: Other: Pain on lt lateral side of ribs, immediately under breast and lt armpit and radiates to the stomach; Additional info: Rib pain TECHNIQUE: Imaging protocol: XR Left ribs with PA chest. Views: 3 views COMPARISON: CR XR KUB [id number] 10/31/2020 12:20 PM FINDINGS: Lungs: Mild atelectasis versus fibrosis at the lung bases. No consolidative pulmonary infiltrate noted. Pleural spaces: No pleural effusion. No pneumothorax. Heart/Mediastinum: Unremarkable. No cardiomegaly. Bones/joints: No left rib fracture or other osseous abnormality. XR/XR ribs LT mn 3V w CXR1V [id number] IMPRESSION: 1. No left rib fracture or other osseous abnormality. 2. Mild atelectasis versus fibrosis at the lung bases. No consolidative pulmonary infiltrate noted. Dictated By:Scott Martin MDSigned By:Scott Martin MDSigned Date/Time:10/20/211806DD/ 25 Discharge Plan Discharge Patient Disposition: Home Clinical Impression: Fracture of rib of left side Condition: Stable Prescriptions: New Percocet 5-325 mg tablet 1 tab PO Q8H PRN (Reason: pain) 3 Days Qty: 9 RF: 0 lidocaine 5 % adhesive patch,medicated 1 patch topical DAILY PRN (Reason: pain) 10 Days Qty: 10 RF: 0 Biofreeze (menthol) 5 % gel 1 ea topical BID PRN (Reason: pain) 10 Days Qty: 1 RF: 0 No Action omeprazole 20 mg capsule,delayed release(DR/EC) 20 mg PO DAILY RF: 0 citalopram 40 mg tablet 40 mg PO DAILY@0530 RF: 0 trazodone 150 mg tablet 150 mg PO DAILY@1900 RF: 0 lorazepam 1 mg tablet 1 mg PO TID PRN (Reason: Anxiety) RF: 0 amlodipine-benazepril 5-40 mg capsule 1 cap PO DAILY@0530 RF: 0 [place] 5-325 mg tablet 1 tab PO Q6H PRN (Reason: pain) Qty: 14 RF: 0 ondansetron 4 mg tablet,disintegrating 4 mg PO Q6H PRN (Reason: nausea and vomiting) Qty: 14 RF: 0 Discharge Orders: Discharge ED (Routine); Ordered 10/20/21 Ordered By: Kia Martínez Referrals: Kya Stevens APN [Primary Care Provider] - Discharge Diet: Advance as tolerated Discharge Activity: Resume usual activity Patient Instructions: Rib Fracture (ED) Activity Restrictions/Additional Instructions: Please come back to the emergency room you have any more pain despite taking your medicine. Please use your incentive spirometer as an instructed. Come back for any new or concerning complaints. Your bilirubin is 4.7 today which is very high. Follow-up with your primary care provider for further evaluation of this number. Our case picker will have you follow-up with our international logistics manager in the next few days. You would be expected to have a phone call with our case picker who will put you on the schedule. You have both 7th and 9th rib fractures. Coding Level of Care Code ED Hand Chain Maker for Vj Hardy
[2021-10-20 21:33] LABS: Lipase 493 U/L (13-60)
[2021-10-20 22:10] VITALS: RESP 18
[2021-10-20] MEDS: HYDROmorphone 1 mg/mL INJ 1 mL IVP (22:10)
[2021-10-20 22:12] VITALS: RESP 18
[2021-10-20] MEDS: oxyCODONE-APAP 5-325 mg Tablet 1 TAB PO (22:12)
[2021-10-20 22:16] VITALS: BP 144/83; PULSE 97; RESP 17; O2SAT 92
--- NOTE | 2021-10-20 22:41 | DCPLANNER ---
quarrying manager had message to schedule a follow up appointment for patient with ortho. quarrying manager emailed patients information to Maryanne at ortho. Patients information will be printed and reviewed. Clinic will call patient with appointment information.
--- NOTE | 2021-10-22 12:56 | PC.SOCIAL ---
Addendum entered by Deneen Decker RN 10/22/21 12:58: Talked with Lupis at Ortho clinic to provide information. Original Note: Called Ortho clinic and provided information related to referral for rib fractures. They will review and call patient. Sent email to [facility] for referral on elevated bilirubin and they will review and call patient.
--- NOTE | 2021-10-23 09:02 | PC.SOCIAL ---
[facility] clinic responded and indicates patient will need set up with Dr Valladares instead for elevated bilirubin levels. Spoke with Marissa at clinic and appt made for 10/30/2021 at 2:45pm. Called and spoke to patient and he wrote down appt date and time.
--- NOTE | 2021-10-24 15:07 | DCPLANNER ---
Patient had a follow up appointment scheduled for 10.22.21 with Francisco Sen at [facility] - patient did attend appointment.
--- NOTE | 2021-10-31 06:26 | DCPLANNER ---
Patient had a follow up appointment scheduled with Dr. Valladares - patient did attend appointment.
== END 2021-10-20 22:21 | disposition home or self-care (01) ==
PROVIDERS: Emergency Provider Emergency Medicine; PCP Nurse Practitioner
DX: S22.32XA Fracture of one rib, left side, initial encounter for closed fracture (principal); F17.220 Nicotine dependence, chewing tobacco, uncomplicated; W18.09XA Striking against other object with subsequent fall, initial encounter
CPT/HCPCS: 71101; 74177; 80053; 83690; 85025; 96374; 96375; 99284; J1170; J2270; Q9967

== ENCOUNTER 2021-10-27 10:32 | Emergency (ER) | payer BC, SELFPAY ==
--- NOTE | 2021-10-27 10:48 | XRR_ITS ---
PROCEDURE INFORMATION: Exam: XR Chest Exam date and time: 10/27/2021 10:48 AM Age: 36 years old Clinical indication: Pain; Chest pressure; Additional info: Chest pain TECHNIQUE: Imaging protocol: XR of the chest. Views: 1 view. COMPARISON: CR (CHEST, ) 10/20/2021 4:44 PM FINDINGS: Lungs: Unremarkable. No consolidation. Pleural spaces: Unremarkable. No pleural effusion. No pneumothorax. Heart/Mediastinum: Unremarkable. No cardiomegaly. Bones/joints: Unremarkable. XR/XR chest 1V portable [id number] IMPRESSION: No acute findings.
[2021-10-27 10:49] VITALS: BP 146/84; PULSE 86; RESP 12; TEMP 36.9; O2SAT 92; BMI 33.4
--- NOTE | 2021-10-27 11:04 | W.ED.SOB ---
HPI - SOB/Dyspnea General: Chief Complaint: Shortness of Breath/Dyspnea Stated Complaint: chest pain, left arm, weakness, dizziness Time Seen by Provider: 10/27/21 11:03 History of Present Illness: HPI Narrative: Mr. Castillo is a 36-year-old gentleman with history of alcohol abuse who presents to the emergency department due to generalized symptoms. He was seen a few days ago secondary to fall and diagnosed with rib fractures at that time. Over the past few days he has noticed generally worsening symptoms. On Thursday he noted some edema in his feet mostly, yesterday he felt dizzy and some heaviness as well as chest pain and shortness of breath. Overall the course of symptoms has been worsening. Intensity is moderate to severe. He has been more somnolent today. No head strike or falls. He does have a headache. No other specific changes in health, exacerbating, relieving factors identified. Review of Systems General: Reports: 10 or more systems reviewed and unremarkable except in HPI and below PFSH ED PFSH: Medical History Alcohol intoxication Major depression Suicidal ideation Ureterolithiasis Social History Smoking and tobacco status: never smoked Quit status (tobacco): considering quitting Second hand smoke exposure: No Alcohol intake: current Alcohol intake frequency: few times a week Marital status: Current occupational status: employed Current gender identity: Male Physical Exam Narrative: EXAM NARRATIVE: GENERAL/CONSTITUTIONAL -somewhat ill-appearing. Mildly somnolent Eyes -no scleral icterus, no conjunctival injection ENMT - Atraumatic external nose and ears. Dry mucous membranes NECK - supple. trachea midline CARDIOVASCULAR - regular rate and rhythm. RESPIRATORY - coarse/diminished to auscultation bilaterally. New oxygen requirement ABDOMEN/GI - mild tenderness palpation. No evidence of remote peritonitis. MSK - Extremities without obvious deformity or tenderness to palpation SKIN - Warm, Dry NEURO - alert and appropriately oriented. No focal neurologic deficits moves all extremities equally. Course ED course: - Patient was seen and evaluated by me at bedside - Patient placed on cardiac monitors, IV access obtained - Initial evaluation notable for exam as above -Symptom treatments ordered - Labs notable for leukocytosis, macrocytosis with normal hemoglobin. Metabolic panel without acute electrolyte derangement. T bili is elevated with worsening transaminitis. Lipase mildly elevated. Ammonia is mildly elevated. - No history of excessive Tylenol use. - Physical exam is not consistent with cholangitis despite laboratory findings. -ABG without acute abnormality significant enough to explain patient's symptoms. - Imaging notable for Negative head CT. Chest x-ray negative. No acute finding on chest CTA to explain new oxygen requirement. Given laboratory findings additional evaluation of the biliary system is warranted. Ultrasound negative for evidence of cholecystitis, no evidence of ductal dilation or choledocholithiasis. - Upon serial reexamination after treatment the patient was improved - Based on patient history, evaluation, labs, and imaging as interpreted the most likely cause of the patient's condition is multifactorial. I am somewhat concerned that he is decompensating however after treatment he appears significantly improved and feels improved. I will start him on lactulose. He states he has not drank for approximately 3 weeks. - The results of ED evaluation were discussed with the patient including prescriptions and/or symptomatic cares (if applicable) including appropriate and responsible use, followup plan, and return precautions. The patient verbalized understanding and felt safe for discharge. - Patient discharged in satisfactory condition. Vital Signs: Vital signs: Vital Signs Temperature 98.5 F 10/27/21 10:49 Pulse Rate 78 10/27/21 20:37 Respiratory Rate 18 10/27/21 20:37 Blood Pressure 136/86 10/27/21 20:37 Pulse Oximetry 98 10/27/21 20:37 MDM - SOB/Dyspnea Medical Records: Attestation: I reviewed the patient's medical records. Lab Data: Attestation: I reviewed the patient's lab results. Labs: Lab Results 10/27/21 10/27/21 10/27/21 11:15 11:15 11:15 WBC 15.7 10^3/uL H 10 ^3/uL (4.0-10.0) RBC 4.02 10^6/uL L 10 ^6/uL (4.1-5.3) Hgb 14.4 g/dL g/dL (11.7-16.6) Hct 39.9 % L % (42.0-52.0) MCV 99.3 fl H fl (80-94) MCH 35.8 pg H pg (28.0-34.0) MCHC 36.1 g/dL H g/dL (30.0-36.0) RDW 15.9 % H % (12.1-15.1) Plt Count 398 10^3/cmm 10^3 /cmm (130-400) MPV 9.5 fL fL (7.4-10.4) Neut % (Auto) 74.6 % % Lymph % (Auto) 9.9 % % [place] % (Auto) 12.2 % % Eos % (Auto) 2.0 % % Baso % (Auto) 0.8 % % Neut # (Auto) 11.69 10^3/uL H 1 0^3/uL (1.8-7.7) Lymph # (Auto) 1.6 10^3/uL 10^3/ uL (0.8-4.8) [place] # (Auto) 1.9 10^3/uL H 10^ 3/uL (0.2-0.9) Eos # (Auto) 0.3 10^3/uL 10^3/ uL (0.0-0.8) Baso # (Auto) 0.1 10^3/uL 10^3/ uL (0.0-0.1) Nucleated RBC % (a uto) 0 % % Nucleated RBCs # 0.0 /100WBC /100W BC Specimen Type Sample Site ABG pH ABG pCO2 ABG pO2 ABG HCO3 ABG Base Excess Huang Test Hematocrit O2 Delivery Device O2 Liters/Min FiO2 Supervisor [employer] ID Sodium 135 mmol/L L mmol /L (136-145) Potassium 2.9 mmol/L L mmol /L (3.5-5.1) Chloride 93 mmol/L L mmol/ L (98-107) Carbon Dioxide 28 mmol/L mmol/L (22-29) Anion Gap 16.9 (5-19) BUN 8 mg/dL mg/dL (6-20) Creatinine 0.5 mg/dL L mg/dL (0.7-1.2) GFR Calculation 187.1 mL/min H mL /min (90-130) Glucose 131 mg/dL H mg/dL (65-115) Calculated Osmolal ity 280 mOsm/kg L mOs m/kg (285-295) Calcium 8.3 mg/dL L mg/dL (8.5-10.5) Total Bilirubin Direct Bilirubin AST ALT Alkaline Phosphata se Ammonia Troponin T Baselin e 8 ng/L ng/L (0-15) Troponin T 120 Min [place] Troponin T Troponin T Hi Sens 6Hr Troponin T Hi Sens 6Hr [place] NT-Pro-B Natriuret Pep 179 pg/mL H pg/mL (0-125) Total Protein Albumin Globulin Lipase 141 U/L H U/L (13-60) Urine Color Urine Appearance Urine pH Ur Specific Gravit y Urine Protein Urine Glucose (UA) Urine Ketones Urine Blood Urine Nitrate Urine Bilirubin Urine Urobilinogen Ur Leukocyte Pauline ase Ethyl Alcohol SARS-CoV-2 Ag (Rap id) 10/27/21 10/27/21 10/27/21 11:15 11:15 12:00 WBC RBC Hgb Hct MCV MCH MCHC RDW Plt Count MPV Neut % (Auto) Lymph % (Auto) [place] % (Auto) Eos % (Auto) Baso % (Auto) Neut # (Auto) Lymph # (Auto) [place] # (Auto) Eos # (Auto) Baso # (Auto) Nucleated RBC % (a uto) Nucleated RBCs # Specimen Type Arterial Sample Site Radial, right ABG pH 7.53 H (7.35-7.45) ABG pCO2 41.8 mmHg mmHg (35-45) ABG pO2 75.4 mmHg L mmHg (80.0-100.0) ABG HCO3 34.5 mmol/L H mmo l/L (22-26) ABG Base Excess 10.6 mmol/L H mmo l/L (-2.0-2.0) Huang Test Pos Hematocrit 41.3 % L % (42-52) O2 Delivery Device Nc O2 Liters/Min 4.0 % % FiO2 36.0 % % Supervisor [employer] ID Amh Sodium Potassium Chloride Carbon Dioxide Anion Gap BUN Creatinine GFR Calculation Glucose Calculated Osmolal ity Calcium Total Bilirubin 5.2 mg/dL H mg/dL (0.15-1.2) Direct Bilirubin 3.60 mg/dL H mg/d L (0.00-0.30) AST 170 U/L H U/L (0-40) ALT 60 U/L H U/L (0-41) Alkaline Phosphata se 265 IU/L H IU/L (40-130) Ammonia Troponin T Baselin e Troponin T 120 Min [place] Troponin T Troponin T Hi Sens 6Hr Troponin T Hi Sens 6Hr [place] NT-Pro-B Natriuret Pep Total Protein 7.4 g/dL g/dL (6.6-8.7) Albumin 3.2 g/dL L g/dL (3.5-5.2) Globulin 4.2 g/dL g/dL (1.3-4.6) Lipase Urine Color Urine Appearance Urine pH Ur Specific Gravit y Urine Protein Urine Glucose (UA) Urine Ketones Urine Blood Urine Nitrate Urine Bilirubin Urine Urobilinogen Ur Leukocyte Pauline ase Ethyl Alcohol < 10 mg/dL mg/dL (0-10) SARS-CoV-2 Ag (Rap id) 10/27/21 10/27/21 10/27/21 13:15 15:00 15:30 WBC RBC Hgb Hct MCV MCH MCHC RDW Plt Count MPV Neut % (Auto) Lymph % (Auto) [place] % (Auto) Eos % (Auto) Baso % (Auto) Neut # (Auto) Lymph # (Auto) [place] # (Auto) Eos # (Auto) Baso # (Auto) Nucleated RBC % (a uto) Nucleated RBCs # Specimen Type Sample Site ABG pH ABG pCO2 ABG pO2 ABG HCO3 ABG Base Excess Huang Test Hematocrit O2 Delivery Device O2 Liters/Min FiO2 Supervisor [employer] ID Sodium Potassium Chloride Carbon Dioxide Anion Gap BUN Creatinine GFR Calculation Glucose Calculated Osmolal ity Calcium Total Bilirubin Direct Bilirubin AST ALT Alkaline Phosphata se Ammonia Troponin T Baselin e Troponin T 120 Min [place] 8.70 ng/L ng/L (0-15) Delta Troponin T 0.70 ABS# ABS# (0-10) Troponin T Hi Sens 6Hr Troponin T Hi Sens 6Hr [place] NT-Pro-B Natriuret Pep Total Protein Albumin Globulin Lipase Urine Color Sakshi (Yellow) Urine Appearance Clear (CLEAR) Urine pH 8 H (5-7) Ur Specific Gravit y 1.010 (1.005-1.030) Urine Protein Neg (Negative) Urine Glucose (UA) Norm (Normal) Urine Ketones 1+ H (Negative) Urine Blood Neg (Negative) Urine Nitrate Negative (Negative) Urine Bilirubin 2+ H (Negative) Urine Urobilinogen 4+ mg/dL H mg/dL (Negative) Ur Leukocyte Pauline ase Negative (Negative) Ethyl Alcohol SARS-CoV-2 Ag (Rap id) Negative (Negative) 10/27/21 10/27/21 17:15 18:51 WBC RBC Hgb Hct MCV MCH MCHC RDW Plt Count MPV Neut % (Auto) Lymph % (Auto) [place] % (Auto) Eos % (Auto) Baso % (Auto) Neut # (Auto) Lymph # (Auto) [place] # (Auto) Eos # (Auto) Baso # (Auto) Nucleated RBC % (a uto) Nucleated RBCs # Specimen Type Sample Site ABG pH ABG pCO2 ABG pO2 ABG HCO3 ABG Base Excess Huang Test Hematocrit O2 Delivery Device O2 Liters/Min FiO2 Supervisor [employer] ID Sodium Potassium Chloride Carbon Dioxide Anion Gap BUN Creatinine GFR Calculation Glucose Calculated Osmolal ity Calcium Total Bilirubin Direct Bilirubin AST ALT Alkaline Phosphata se Ammonia 67 umol/L H umol/ L (16-60) Troponin T Baselin e Troponin T [address] [place] Troponin T Troponin T Hi Sens 6Hr 8.69 ng/L ng/L (0-15) Troponin T Hi Sens 6Hr [place] 0.69 ng/L ng/L (0-12) NT-Pro-B Natriuret Pep Total Protein Albumin Globulin Lipase Urine Color Urine Appearance Urine pH Ur Specific Gravit y Urine Protein Urine Glucose (UA) Urine Ketones Urine Blood Urine Nitrate Urine Bilirubin Urine Urobilinogen Ur Leukocyte Pauline ase Ethyl Alcohol SARS-CoV-2 Ag (Rap id) EKG Data^: EKG 1: Attestation: I personally reviewed and interpreted this EKG as follows: EKG Interpretation Date: 10/27/21 EKG interpretation time: 13:47 Interpretation: Twelve-lead EKG shows a regular rhythm at a rate of 79. MN interval 132, QRS duration 102, QTc 432. Normal axis. Interpretation: Sinus rhythm. Nonspecific ST segment abnormalities. EKG 2: Attestation: I personally reviewed and interpreted this EKG as follows: EKG Interpretation Date: 10/27/21 EKG interpretation time: 10:50 Interpretation: Twelve-lead EKG shows a regular rhythm at a rate of 98. MN interval 127, QRS duration 97, QTc 434. Normal axis. Interpretation: Sinus rhythm. Nonspecific ST segment abnormalities. Discharge Plan Discharge Patient Disposition: Home Clinical Impression: Shortness of breath, Fatigue, Leukocytosis, Hypokalemia, Dehydration, Elevated bilirubin, Elevated transaminase level, Increased ammonia level Condition: Stable Prescriptions: New lactulose 10 gram packet 30 g PO BID Qty: 30 RF: 0 No Action oxycodone 5 mg tablet 5 mg PO Q6H PRN (Reason: pain) 7 Days Qty: 10 RF: 0 trazodone 150 mg tablet 150 mg PO BEDTIME PRN (Reason: Insomnia) RF: 0 lorazepam 1 mg tablet 1 mg PO TID PRN (Reason: Anxiety) RF: 0 amlodipine-benazepril 5-40 mg capsule 1 cap PO DAILY@0530 RF: 0 ibuprofen 800 mg Tablet 800 mg PO Q6H PRN (Reason: Pain) RF: 0 hydroxyzine HCl 50 mg tablet 50 mg PO QID PRN (Reason: Anxiety) RF: 0 citalopram 20 mg tablet 20 mg PO DAILY RF: 0 Discharge Orders: Discharge ED (Routine); Ordered 10/27/21 Ordered By: Linus Gonzalez Discharge Diet: Usual diet Discharge Activity: Resume usual activity Patient Instructions: Dehydration (ED), Hypokalemia (ED), Shortness of Breath (ED), Opioid Safety Activity Restrictions/Additional Instructions: Thank you for visiting the emergency department. You were seen and evaluated for multiple symptoms. The exact cause of your symptoms is somewhat unclear. You do have an elevated white blood cell count which in combination with shortness of breath may indicate an atypical bacterial infection/pneumonia. You will be given a prescription for this. You were noted to have continued evidence of liver disease likely secondary to your alcohol abuse. Your ammonia level was elevated which can cause some of the other generalized symptoms that you are talking about. You will be given a prescription for lactulose for this. Please take it starting twice daily and adjusting between 1 and 3 times daily in order to have 2-3 soft bowel movements per day. Please ensure that you are staying hydrated as your potassium was low. I recommend drinking some Gatorade or other electrolyte solution prior to starting your lactulose. Please follow-up with your primary care provider. I will place a referral to our entry level programmer however you may still need referral further onto a career services coordinator for further management of your liver disease. Return to the emergency department for worsening symptoms or anything else that you are concerned about and feel needs emergency department evaluation. Please limit Tylenol intake to less than 2000 mg/day. Coding Level of Care Code ED Assembler Camper for Vj Hardy
[2021-10-27] MEDS: sodium chloride 0.9% 1,000 ML 999 ML IV (11:22)
[2021-10-27 11:23] LABS: Basophils # 0.1 10^3/uL (0.0-0.1); Basophils % 0.8 %; Eosinophils # 0.3 10^3/uL (0.0-0.8); Hematocrit 39.9 % (42.0-52.0); Hemoglobin 14.4 g/dL (11.7-16.6); Lymphocytes # 1.6 10^3/uL (0.8-4.8); Lymphocytes % 9.9 %; Mean Corpuscular HGB Conc 36.1 g/dL (30.0-36.0); Mean Corpuscular Hemoglobin 35.8 pg (28.0-34.0); Mean Corpuscular Volume 99.3 fl (80-94); Mean Platelet Volume 9.5 fL (7.4-10.4); Monocytes # 1.9 10^3/uL (0.2-0.9); Monocytes % 12.2 %; Neutrophils # 11.69 10^3/uL (1.8-7.7); Neutrophils % 74.6 %; Nucleated Red Blood Cells % 0 %; Platelet Count 398 10^3/cmm (130-400); Red Blood Count 4.02 10^6/uL (4.1-5.3); Red Cell Distribution Width 15.9 % (12.1-15.1); White Blood Count 15.7 10^3/uL (4.0-10.0)
[2021-10-27 11:44] LABS: Troponin(5th) Baseline 8 ng/L (0-15)
[2021-10-27 11:52] LABS: Anion Gap 16.9 (5-19); Blood Urea Nitrogen 8 mg/dL (6-20); Calcium 8.3 mg/dL (8.5-10.5); Carbon Dioxide 28 mmol/L (22-29); Chloride 93 mmol/L (98-107); Glomerular Filtration Rate 187.1 mL/min (90-130); Glucose 131 mg/dL (65-115); Lipase 141 U/L (13-60); NT Pro B Type Natriuretic Pept 179 pg/mL (0-125); Osmolality Calculated 280 mOsm/kg (285-295); Sodium 135 mmol/L (136-145)
[2021-10-27 11:54] LABS: Potassium 2.9 mmol/L (3.5-5.1)
--- NOTE | 2021-10-27 11:55 | PC.NURSE ---
Potassium [address] Gonzalez.
[2021-10-27 12:11] LABS: ABG PCO2 41.8 mmHg (35-45); ABG PH Result 7.53 (7.35-7.45); Arterial Blood Gas Hematocrit 41.3 % (42-52); Base Excess ABG 10.6 mmol/L (-2.0-2.0); Blood Gas Allen Test Pos; Blood Gas Operator Identificat AMH; Blood Gas Sample Site Radial, right; Blood Gas Sample Type Arterial; HCO3 ABG 34.5 mmol/L (22-26); Oxygen Device NC; PO2 ABG 75.4 mmHg (80.0-100.0)
[2021-10-27] MEDS: potassium chloride ER 20 mEq Tablet 40 MEQ PO (12:24)
--- NOTE | 2021-10-27 12:40 | CTR_ITS ---
PROCEDURE INFORMATION: Exam: CT Head Without Contrast Exam date and time: 10/27/2021 12:40 PM Age: 36 years old Clinical indication: Dizziness; Additional info: Dizzy, AMS TECHNIQUE: Imaging protocol: Computed tomography of the head without contrast. Axial, coronal and sagittal reformatted images were created and reviewed. Radiation optimization: All CT scans at this facility use at least one of these dose optimization techniques: automated exposure control; mA and/or kV adjustment per patient size (includes targeted exams where dose is matched to clinical indication); or iterative reconstruction. COMPARISON: No relevant prior studies available. RADIATION DOSE METRICS: Total DLP (mGy-cm): 932.91 FINDINGS: Brain: No CT evidence of acute intracranial hemorrhage or acute territorial infarction. No significant mass effect or midline shift. Basal cisterns patent. Cerebral ventricles: Prominence of the cortical sulci, cisterns and ventricular system, consistent with cerebral and cerebellar volume loss. Paranasal sinuses: Minimal ethmoid mucosal thickening. Mastoid air cells: Grossly unremarkable. Bones/joints: No acute osseous abnormality. Soft tissues: Grossly unremarkable. CT/CT head wo con* [id number] IMPRESSION: 1. No CT evidence of acute intracranial pathology. 2. Additional findings, as above.
--- NOTE | 2021-10-27 12:40 | CTR_ITS ---
PROCEDURE INFORMATION: Exam: CTA Chest With Contrast Exam date and time: 10/27/2021 12:40 PM Age: 36 years old Clinical indication: Shortness of breath; Additional info: SOB, abnormal ekg TECHNIQUE: Imaging protocol: Computed tomographic angiography of the chest with contrast. 3D rendering (Not supervised by radiologist): MIP and/or 3D reconstructed images were created by the technologist. Radiation optimization: All CT scans at this facility use at least one of these dose optimization techniques: automated exposure control; mA and/or kV adjustment per patient size (includes targeted exams where dose is matched to clinical indication); or iterative reconstruction. Contrast material: OMNI 350; Contrast volume: 79 ml; Contrast route: INTRAVENOUS (IV); COMPARISON: CR (CHEST, ) 10/27/2021 11:13 AM RADIATION DOSE METRICS: Total DLP (mGy-cm): 559.85 FINDINGS: Pulmonary arteries: Normal. No pulmonary emboli. Aorta: Unremarkable. No aortic aneurysm. No aortic dissection. Lungs: Scarring and/or atelectasis in the inferior segment of the lingula. Pleural spaces: Unremarkable. No pneumothorax. No pleural effusion. Heart: Unremarkable. No cardiomegaly. No pericardial effusion. Lymph nodes: Unremarkable. No enlarged lymph nodes. Liver: Severe fatty infiltration of the liver. Bones/joints: Unremarkable. No acute fracture. Soft tissues: Unremarkable. CT/CT angio chest PE protcl [id number] IMPRESSION: Severe fatty infiltration of the liver.
--- NOTE | 2021-10-27 12:48 | ECG_ITS ---
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 Measurements Intervals [place] Rate: 79 P: 8 IN: 132 QRS: 106 QRSD: 102 T: -4 QT: 397 QTc: 457 Interpretive Statements SINUS RHYTHM RIGHT AXIS DEVIATION [QRS AXIS > 100] NONSPECIFIC T-WAVE ABNORMALITY No previous ECG available for comparison Electronically Signed On 10-28-2021 16:58:03 ROLLS BAKER by Pearl Callahan M.D. [id number]
[2021-10-27 12:53] LABS: Alcohol Level < 10 mg/dL (0-10)
[2021-10-27] MEDS: lidocaine 1% 5 ML in potassium chloride premix 100 ML 50 ML IV (13:01)
[2021-10-27] MEDS: iohexol 350 mg/mL 100 mL Btl IV (13:05)
--- NOTE | 2021-10-27 13:53 | ECG_ITS ---
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 Measurements Intervals [place] Rate: 98 P: -74 CT: 127 QRS: 111 QRSD: 97 T: 58 QT: 378 QTc: 485 Interpretive Statements JUNCTIONAL RHYTHM POSSIBLE RIGHT VENTRICULAR HYPERTROPHY [SOME/ALL OF: PROMINENT R IN V1, LATE TRANSITION, RAD, RANGEL, SSS] SEPTAL MYOCARDIAL INFARCTION , PROBABLY OLD [40+ ms Q WAVE IN V1/V2] MODERATE T-WAVE ABNORMALITY, CONSIDER ANTEROLATERAL ISCHEMIA [-0.1+ mV T-WAVE IN V3-V6] MODERATE T-WAVE ABNORMALITY, CONSIDER INFERIOR ISCHEMIA [-0.1+ mV T-WAVE IN II/aVF] INTERPRETATION BASED ON A DEFAULT AGE OF 40 YEARS No previous ECG available for comparison Electronically Signed On 10-28-2021 22:23:24 HOSPITAL TECHNICIAN by Pearl Callahan M.D. [id number]
[2021-10-27 15:46] LABS: SARS Covid-2 Antigen Negative (Negative)
[2021-10-27 16:19] LABS: Add Urine Microscopic? NO; Charge for UA Resulting for Rev
[2021-10-27 16:23] LABS: Glucose Urine UA Norm (Normal); Protein Urine Neg (Negative); Urine Appearance Clear (CLEAR); Urine Color Amber (Yellow); pH Urine 8 (5-7)
[2021-10-27 16:24] LABS: Bilirubin Urine 2+ (Negative); Blood Urine Neg (Negative); Ketones Urine 1+ (Negative); Leukocyte Esterase Urine Negative (Negative); Nitrate Urine Negative (Negative); Urobilinogen Urine 4+ mg/dL (Negative)
[2021-10-27 17:15] LABS: Alanine Aminotransferase 60 U/L (0-41); Albumin Level 3.2 g/dL (3.5-5.2); Alkaline Phosphatase 265 IU/L (40-130); Aspartate Amino Transferase 170 U/L (0-40); Globulin 4.2 g/dL (1.3-4.6); Total Bilirubin 5.2 mg/dL (0.15-1.2); Total Protein 7.4 g/dL (6.6-8.7)
--- NOTE | 2021-10-27 17:28 | USR_ITS ---
PROCEDURE INFORMATION: Exam: US Abdomen, Limited; Right Upper Quadrant Exam date and time: 10/27/2021 5:28 PM Age: 36 years old Clinical indication: Abdominal pain; Epigastric; Additional info: Biliary, eval for cholecystitis/choledocolithiasis TECHNIQUE: Imaging protocol: US abdomen. Real time ultrasound with image documentation. Limited exam focused on the right upper quadrant. COMPARISON: CT abdomen pelvis w con* [id number] 10/20/2021 9:04 PM FINDINGS: Liver: Mild hepatomegaly. Mild, diffuse hepatic steatosis. Gallbladder: No gallstones. No gallbladder wall thickening or pericholecystic fluid. Positive sonographic Zamora's sign, as per the director dermatology. This is a nonspecific finding. Common bile duct: No stones. No ductal dilatation. Pancreas: Suboptimally visualized. Right kidney: No mass. No definite stones. No hydronephrosis. US/US abdomen limited [id number] IMPRESSION: Mildly enlarged, fatty liver.
[2021-10-27 18:10] LABS: Troponin 5 6HR 8.69 ng/L (0-15); Troponin 5 6HR Delta 0.69 ng/L (0-12)
[2021-10-27 19:14] LABS: Ammonia 67 umol/L (16-60)
[2021-10-27 20:37] VITALS: BP 136/86; PULSE 78; RESP 18; O2SAT 98
--- NOTE | 2021-10-29 09:58 | DCPLANNER ---
manager work had message to schedule a follow up appointment for patient with Dr. Valladares. manager work called the office of Dr. Valladares, spoke with Ulysses, gave clinic patients information. A follow up appointment was scheduled for , October 30, 2021 at 2:[address] Valladares. Patient is aware of appointment.
--- NOTE | 2021-10-31 13:25 | DCPLANNER ---
Patient has a follow up appointment scheduled for 10.30.[address] goodwin - patient did attend appointment.
== END 2021-10-27 20:39 | disposition home or self-care (01) ==
PROVIDERS: Emergency Medicine; Emergency Provider Emergency Medicine
DX: R06.02 Shortness of breath (principal); R53.83 Other fatigue; D72.829 Elevated white blood cell count, unspecified; E87.6 Hypokalemia; E86.0 Dehydration; R17 Unspecified jaundice; R74.01 Elevation of levels of liver transaminase levels; R79.89 Other specified abnormal findings of blood chemistry; Z20.822 Contact with and (suspected) exposure to COVID-19
CPT/HCPCS: 36415; 36600; 70450; 71045; 71275; 76705; 80048; 80076; 80307; 81003; 82140; 82803; 83690; 83880; 84484; 85025; 87426; 93005; 96365; 96367; 99283; J3475; J3480; J7030; Q9967

== ENCOUNTER → 2021-10-30 15:38 | Outpatient (BNVA) | payer BC, SELFPAY | PROVIDERS: Visit Provider Internal Medicine | DX: K70.9 Alcoholic liver disease, unspecified (principal) | CPT/HCPCS: 80053 ==

== ENCOUNTER → 2021-11-06 12:42 | Outpatient (BNVA) | payer BC, SELFPAY | PROVIDERS: PCP Internal Medicine; Visit Provider Internal Medicine | DX: Z01.812 Encounter for preprocedural laboratory examination (principal) | CPT/HCPCS: 87635 ==

== ENCOUNTER 2021-11-11 08:49 | Day surgery (SDC) | payer BC, SELFPAY ==
[2021-11-08 13:26] VITALS: BMI 33.1
--- NOTE | 2021-11-11 09:19 | W.PM.OPSFHP ---
Same Day Surgery H&P Indication for Procedure/HPI DATE OF PROCEDURE: November 11, 2021 CHIEF COMPLAINT/INDICATIONFOR SURGICAL PROCEDURE: Epigastric pain PREOP DIAGNOSIS: Epigastric pain PLANNED PROCEDRUE: Operation Date: 11/11/21 10:45 Proposed Procedures p EGD 25456 R11.10(Not Applicable) - Basilio Valladares MD Medications/Allergies* Home Medications Medication Instructions Recorded Confirmed Type amlodipine-benazepril 1 cap PO DAILY@0530 10/29/20 11/08/21 History lorazepam 1 mg PO TID PRN 10/29/20 11/08/21 History trazodone 150 mg PO BEDTIME PRN 10/29/20 11/08/21 History citalopram 20 mg PO DAILY 10/27/21 11/08/21 History hydroxyzine HCl 50 mg PO QID PRN 10/27/21 11/08/21 History Allergies/Adverse Reactions Allergy/AdvReac Type Severity Reaction Status Date / Time No Known Allergies Allergy Verified 11/08/21 13:24 Pertinent History/Comorbid Conditions* Medical History (Updated 11/06/21 @ 11:41 by Basilio Valladares MD) Alcohol intoxication Major depression Suicidal ideation Ureterolithiasis Social History Smoking and tobacco status: never smoked Quit status (tobacco): considering quitting Second hand smoke exposure: No Alcohol intake: current Alcohol intake frequency: few times a week Marital status: Current occupational status: employed Current gender identity: Male Pertinent Exam Findings alert, oriented x 3, clear to auscultation bilaterally, regular rate & rhythm, operative site marked and procedure specific exam findings Recommendations Surgery/Procedure today Coding Level of Care Code Acute It Senior Software Engineer Java for Vj Hardy
--- NOTE | 2021-11-11 09:57 | ANES.PREANE2 ---
Pre-Anesthetic Assessment Pre-Anesthetic Assessment: Height/Weight: Height 1.73 m Weight 98.883 kg Preop Diagnosis: n/v Proposed Procedure: Operation Date: 11/11/21 10:45 Proposed Procedures p EGD 45215 R11.10(Not Applicable) - Basilio Valladares MD Familial anesthetic complications: none Was Beta Merari taken within 24 hours: N/A Was Clonidine taken within 24 hours: N/A Last Intake: 23:45 Social: Social History: Tobacco (chew at 0800) and No alcohol Exam: Pre-Anes Outpt Exam: alert, oriented x 3, clear to auscultation bilaterally and regular rate & rhythm Airway: Submandibular: WNL Cervical ROM: WNL MP: 2 Dentition: Full Pulmonary: Pulmonary: None reported CV/HEM: CV/HEM: HTN and PR (pt states noted on EKG in ED in past. No symptoms or workup) : : None reported Comments: KS in past Hepatic: Hepatic: None reported GI: GI: GERD Metabolic: Metabolic: None reported Musc/skel: Musc/skel: Lower Back Pain Neuropsych: Neuropsych: Anxiety and Depression Anesthetic Plan: ASA status: 2 Anesthesia: MAC Risk of > 500 ml blood loss (7ml/kg in children): No PFSH Anesthesia PFSH: Medical History Alcohol intoxication Major depression Suicidal ideation Ureterolithiasis Social History Smoking and tobacco status: never smoked Quit status (tobacco): considering quitting Second hand smoke exposure: No Alcohol intake: current Alcohol intake frequency: few times a week Marital status: Current occupational status: employed Current gender identity: Male Data Anesthesia Cardiac Studies: No Data to Display
[2021-11-11] MEDS: sodium chloride 0.9% 1,000 ML 30 ML IV (10:13)
[2021-11-11 10:15] VITALS: BP 147/93; PULSE 101; RESP 18; TEMP 37.3; O2SAT 98
[2021-11-11 11:40] VITALS: BP 127/87; PULSE 94; RESP 18; TEMP 36.8; O2SAT 93
--- NOTE | 2021-11-11 14:08 | ANE.PACU2 ---
Inpatient post-anesthesia follow up: Airway intact: Yes Vital signs: Temperature 98.2 F Pulse Rate 94 Respiratory Rate 18 Blood Pressure 127/87 Pulse Oximetry 93 Oxygen Delivery Me thod Room Air Oxygen Flow Rate Fraction of Inspir ed Oxygen Hydration adequate: Yes Nausea and vomiting: No Pain level: 2 Mental status: Baseline
== END 2021-11-11 11:59 | disposition home or self-care (01) ==
PROVIDERS: PCP Internal Medicine; Visit Provider Internal Medicine
PROC: 0DJ08ZZ Inspection of Upper Intestinal Tract, Via Natural or Artificial Opening Endoscopic (ICD-10-PCS; CPT 43235; principal; 2021-11-11 10:45)
DX: R10.13 Epigastric pain (principal); F17.220 Nicotine dependence, chewing tobacco, uncomplicated; K21.9 Gastro-esophageal reflux disease without esophagitis
CPT/HCPCS: 43235; J2704; J7030

== ENCOUNTER 2021-11-15 09:42 | Emergency (ER) | payer BC, SELFPAY ==
[2021-11-15] VITALS (11 sets, daily range): BP systolic 126–138; BP diastolic 77–89; PULSE 94–104; RESP 18–26; TEMP 36.8; O2SAT 91–96; BMI 31.9
--- NOTE | 2021-11-15 09:46 | XR_ITS ---
WS: [id number] XR chest 1V portable [id number] REASON FOR EXAM: chest pain FINDINGS: The heart and mediastinum are within normal limits. No active pulmonary parenchymal or pleural disease. There is a healing fracture of the posterior lateral left seventh rib. This fracture was present on p revious chest x-ray 10/27/[address] scan of the same day. XR/XR chest 1V portable [id number] IMPRESSION: Healing left rib fracture as above.
--- NOTE | 2021-11-15 09:47 | ECG_ITS ---
[facility] Test Date: 2021-11-15 Pat Name: Grady Castillo Department: Room: Gender: Male Occupational Health Nurse: : 1985 Requested By: Roberto Vega Order Number: [id number] Reading MD: BARBER REICH Measurements Intervals [place] Rate: 97 P: 21 NV: 155 QRS: 93 QRSD: 86 T: 24 QT: 353 QTc: 449 Interpretive Statements SINUS RHYTHM BORDERLINE RIGHT AXIS DEVIATION [QRS AXIS > 90] NONSPECIFIC T-WAVE ABNORMALITY Compared to ECG 10/27/2021 13:42:22 No significant changes Electronically Signed On 11-15-2021 18:15:05 AIRPLANE RENTAL CLERK by BARBER REICH [id number]
--- NOTE | 2021-11-15 10:01 | PC.NURSE ---
pt on continuous BP, onion tier and O2 sat monitor at bedside
[2021-11-15 10:13] LABS: Basophils # 0.1 10^3/uL (0.0-0.1); Basophils % 0.7 %; Eosinophils # 0.9 10^3/uL (0.0-0.8); Eosinophils % 5.1 %; Hematocrit 38.7 % (42.0-52.0); Hemoglobin 13.1 g/dL (11.7-16.6); Lymphocytes # 2.8 10^3/uL (0.8-4.8); Mean Corpuscular HGB Conc 33.9 g/dL (30.0-36.0); Mean Corpuscular Volume 100.5 fl (80-94); Mean Platelet Volume 9.8 fL (7.4-10.4); Monocytes # 1.5 10^3/uL (0.2-0.9); Monocytes % 8.7 %; Neutrophils % 69.2 %; Nucleated Red Blood Cells % 0 %; Platelet Count 374 10^3/cmm (130-400); Red Blood Count 3.85 10^6/uL (4.1-5.3); Red Cell Distribution Width 13.7 % (12.1-15.1); White Blood Count 17.6 10^3/uL (4.0-10.0)
[2021-11-15 10:37] LABS: Alanine Aminotransferase 36 U/L (0-41); Albumin Level 3.4 g/dL (3.5-5.2); Alkaline Phosphatase 173 IU/L (40-130); Anion Gap 15.7 (5-19); Aspartate Amino Transferase 108 U/L (0-40); Blood Urea Nitrogen 6 mg/dL (6-20); Calcium 8.3 mg/dL (8.5-10.5); Carbon Dioxide 21 mmol/L (22-29); Chloride 104 mmol/L (98-107); Creatine Phosphokinase 19 U/L (39-308); Globulin 3.4 g/dL (1.3-4.6); Glomerular Filtration Rate 187.1 mL/min (90-130); Glucose 103 mg/dL (65-115); Osmolality Calculated 282 mOsm/kg (285-295); Potassium 3.7 mmol/L (3.5-5.1); Sodium 137 mmol/L (136-145); Total Bilirubin 3.3 mg/dL (0.15-1.2); Total Protein 6.8 g/dL (6.6-8.7); Troponin(5th) Baseline 6 ng/L (0-15)
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
--- NOTE | 2021-11-15 11:29 | CT_ITS ---
WS: [id number] CT ABDOMEN PELVIS TECHNIQUE: Contrast-enhanced CT of the abdomen and pelvis with coronal and sagittal reformatted image s. CLINICAL INFORMATION: abd pain COMPARISON: None. DLP: 1924.[address] scans at [facility] use at least one of these dose optimization techniques: automated e xposure control; mA and/or kV adjustment per patient size (includes targeted exams where dose is matc hed to clinical indication); or iterative reconstruction. FINDINGS: Again seen is the left posterior lateral ninth rib fracture with evidence of healing compared to prev ious. Slight subsegmental atelectasis in the left lung base is new from previous. Slight atelectasis right lower lobe. Hepatomegaly with diffuse fatty infiltration of the liver. Mild gallbladder wall th ickening unchanged likely due to hepatocellular disease. Tiny presumed hepatic cyst in the dome of th e liver. Normal spleen. Normal GE junction. Adrenal glands are normal. Normal renal parenchymal enhan cement. No hydronephrosis. A few right simple renal cysts. Normal pancreatic parenchymal enhancement. Normal portal vein and splenic vein. A few reactive lymph nodes in the alicia hepatis. Normal caliber abdominal aorta. No evidence of high-grade small or large bowel obstruction. Normal ap pendix not lower quadrant. Normal spleen. Fat-containing umbilical hernia. CT/CT abdomen pelvis w con* [id number] IMPRESSION: 1. Diffuse fatty infiltration of the liver with hepatomegaly unchanged. 2. Mild gallbladder wall thickening unchanged from previous likely due to hepa tocellular disease. 3. Left posterior lateral ninth rib fracture demonstrates evidence of interval healing compared to previous. Slight atelectasis in the left greater than righ t lower lobes is new from previous. 4. Incidental fat-containing umbilical hernia. 5. No other significant changes from previous.
--- NOTE | 2021-11-15 11:47 | ECG_ITS ---
[facility] Test Date: 2021-11-15 Pat Name: Grady Castillo Department: Room: Gender: Male Cnc Specialist: : 1985 Requested By: Roberto Vega Order Number: [id number] Reading MD: BARBER REICH Measurements Intervals [place] Rate: 96 P: 24 HI: 140 QRS: 88 QRSD: 98 T: 10 QT: 378 QTc: 479 Interpretive Statements SINUS RHYTHM NONSPECIFIC T-WAVE ABNORMALITY Compared to ECG 11/15/2021 10:05:32 No significant changes Electronically Signed On 11-15-2021 18:18:20 FABRIC AND ACCESSORIES ESTIMATOR by BARBER REICH [id number]
[2021-11-15] MEDS: iohexol 300 mg/mL 100 mL Btl IV (12:37)
[2021-11-15 14:30] LABS: Troponin 5 2HR Delta 0 ABS# (0-10)
== END 2021-11-15 15:02 | disposition home or self-care (01) ==
PROVIDERS: Emergency Provider Family Medicine; PCP Internal Medicine
DX: G89.29 Other chronic pain (principal); R10.9 Unspecified abdominal pain; S22.32XA Fracture of one rib, left side, initial encounter for closed fracture; I10 Essential (primary) hypertension; X58.XXXA Exposure to other specified factors, initial encounter
CPT/HCPCS: 71045; 74177; 80053; 82550; 84484; 85025; 93005; 99284; Q9967

== ENCOUNTER 2021-11-19 20:17 | Emergency (ER) | payer OTHER, BC, SELFPAY ==
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
[2021-11-19 20:21] VITALS: BP 144/81; PULSE 110; RESP 18; TEMP 37.1; O2SAT 94; BMI 30.4
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
[2021-11-19 20:38] VITALS: RESP 18
[2021-11-19] MEDS: HYDROmorphone 1 mg/mL INJ 1 mL IVP ×3 (20:38→23:20)
[2021-11-19] MEDS: ondansetron 2 mg/ML SDV 2 mL 4 MG IVP (20:39)
[2021-11-19 21:18] VITALS: RESP 20
[2021-11-19 21:55] VITALS: BP 144/87; PULSE 110; RESP 20; O2SAT 94
--- NOTE | 2021-11-19 22:35 | PC.NURSE ---
patient resting comfortably. family in room. awaiting TLSO brace to be brought.
[2021-11-19 23:20] VITALS: RESP 18
[2021-11-20] MEDS: HYDROcodone-acetaminophen 7.5-325 mg Tablet 1 TAB PO (00:40)
[2021-11-20 00:50] VITALS: BP 134/87; PULSE 80; RESP 20; O2SAT 100
--- NOTE | 2021-11-20 17:42 | DCPLANNER ---
Addendum entered by Sherly Pepper 11/28/21 17:12: Patient had a follow up appointment scheduled for 11.21.[address] Pratt at ortho - patient did attend appointment. Original Note: internet technology manager had message to schedule a follow up appointment for patient with ortho, Dr. Pratt. internet technology manager emailed patients information to both Maryanne and Leslie at [facility] ortho. Patients information will be printed and reviewed. Clinic will call patient with appointment information.
== END 2021-11-20 00:40 | disposition home or self-care (01) ==
PROVIDERS: Emergency Provider Emergency Medicine; PCP Internal Medicine
DX: S22.069A Unspecified fracture of T7-T8 vertebra, initial encounter for closed fracture (principal); S22.079A Unspecified fracture of T9-T10 vertebra, initial encounter for closed fracture; S22.089A Unspecified fracture of T11-T12 vertebra, initial encounter for closed fracture; V89.2XXA Person injured in unspecified motor-vehicle accident, traffic, initial encounter
CPT/HCPCS: 70450; 72125; 72128; 72131; 96374; 96375; 96376; 99284; J1170; J2405

== ENCOUNTER → 2021-11-21 00:01 | Outpatient (BNVA) | payer BC, SELFPAY | PROVIDERS: PCP Internal Medicine; Visit Provider Orthopaedic Surgery | DX: Z20.822 Contact with and (suspected) exposure to COVID-19 (principal); V89.2XXA Person injured in unspecified motor-vehicle accident, traffic, initial encounter | CPT/HCPCS: 87635 ==

== ENCOUNTER 2021-11-22 09:28 | Day surgery (SDC) | payer BC, SELFPAY ==
[2021-11-21 14:50] VITALS: BMI 31.9
[2021-11-22] VITALS (60 sets, daily range): BP systolic 101–184; BP diastolic 59–117; PULSE 87–122; RESP 4–29; TEMP 36.6–38.1; O2SAT 87–97
--- NOTE | 2021-11-22 | SCC_ITS ---
Procedure Done: 1. T6-L1 instrumentation 2. T6- L1 posterior spine fusion 3. Use of computer navigation /stereotactic spine 4. Bone marrow aspiration Right iliac crest through separate incision 5. Use of autograft 6. use of allograft 23 seconds of fluoroscopic guidance, for a cumulative dose of 36.8 mGy, was provided to Dr. Pratt by the radiology department. C-arm images of the thoracic spine were saved for the patient's permanent record. MARINED
--- NOTE | 2021-11-22 | XR_ITS ---
WS: [id number] Exam: XR thoracic spine 2V [id number] Date/Time of Exam: 11/22/2021 12:00 AM Reason For Exam: fusion of spine AP and lateral images of the limited thoracic spine are submitted for evaluation. Bilateral pedicle screws are in place from L1 to T7. Surgical retractors are in place at the L1 leve l. No other postoperative changes are noted from this limited series.
[2021-11-22] MEDS: sodium chloride 0.9% 1,000 ML 30 ML IV (10:31)
--- NOTE | 2021-11-22 10:36 | W.PM.OPSUD ---
Surgery/Procedure H&P Update DATE OF PROCEDURE: November 22, 2021 DATE H&P PERFORMED: 11/21/21 H&P UPDATE INFORMATION: I have reviewed H&P completed within last 30 days, I have examined patient prior to procedure and No changes to prior documentation PREOP DIAGNOSIS: n/v PLANNED PROCEDURE: Operation Date: 11/22/21 10:45 Proposed Procedures p Posterior Lumbar Interbody Fusion [id number](Not Applicable) - Omari Pratt DO
--- NOTE | 2021-11-22 11:24 | ANES.PREANE2 ---
Pre-Anesthetic Assessment Pre-Anesthetic Assessment: Height/Weight: Height 1.73 m Weight 95.254 kg Temp Pulse Resp BP Pulse Ox 97.8 F 122 H 20 H 143/89 93 11/22/21 10:04 11/22/21 10:04 11/22/21 10:04 11/22/21 10:04 11/22/21 10:04 Preop Diagnosis: n/v Proposed Procedure: Operation Date: 11/22/21 10:45 Proposed Procedures p Posterior Lumbar Interbody Fusion [id number](Not Applicable) - Omari Alfonso Santa, DO Was Beta Merari taken within 24 hours: N/A Was Clonidine taken within 24 hours: N/A Last intake: Intake Last Liquid Date 11/21/21 Last Liquid Time 23:30 Last Solid Date 11/21/21 Last Solid Time 19:30 Social: Social History: Alcohol and Tobacco (h/o smoking) Exam: Pre-Anes Outpt Exam: alert, oriented x 3 and regular rate & rhythm Airway: Submandibular: WNL Cervical ROM: WNL MP: 2 Dentition: Chipped GI: GI: GERD Neuropsych: Neuropsych: Anxiety and Depression Anesthetic Plan: ASA status: 3 Anesthesia: General Other: A.line Risk of > 500 ml blood loss (7ml/kg in children): Yes, adequate IV access and fluids planned Medications/Allergies Current Medications: Current Medications Generic Name Dose Route Start Last Admin Trade Name Freq PRN Reason Stop Dose Admin Sodium Chloride 1,000 mls @ 30 ml s/hr 11/22/21 09:45 11/22/21 10:31 Sodium Chloride 0.9% IV 11/23/21 09:44 30 mls/hr .Q24H [place] Administration PFSH Anesthesia PFSH: Medical History Alcohol intoxication Major depression Suicidal ideation Ureterolithiasis Social History Quit status (tobacco): considering quitting Second hand smoke exposure: No Alcohol intake: current Alcohol intake frequency: few times a week Marital status: Current occupational status: employed Current gender identity: Male Data Anesthesia Cardiac Studies: No Data to Display
[2021-11-22 12:07] LABS: Basophils # 0.1 10^3/uL (0.0-0.1); Basophils % 0.9 %; Eosinophils # 1.3 10^3/uL (0.0-0.8); Eosinophils % 8.5 %; Hematocrit 39.3 % (42.0-52.0); Hemoglobin 12.9 g/dL (11.7-16.6); Lymphocytes # 1.7 10^3/uL (0.8-4.8); Mean Corpuscular HGB Conc 32.8 g/dL (30.0-36.0); Mean Corpuscular Hemoglobin 33.6 pg (28.0-34.0); Mean Corpuscular Volume 102.3 fl (80-94); Mean Platelet Volume 11.1 fL (7.4-10.4); Monocytes # 1.7 10^3/uL (0.2-0.9); Monocytes % 11.2 %; Neutrophils # 10.58 10^3/uL (1.8-7.7); Nucleated Red Blood Cells % 0 %; Platelet Count 346 10^3/cmm (130-400); Red Blood Count 3.84 10^6/uL (4.1-5.3); Red Cell Distribution Width 13.6 % (12.1-15.1); White Blood Count 15.6 10^3/uL (4.0-10.0)
[2021-11-22] MEDS: heparin, porcine 1,000 unit/mL INJ 10 mL 10000 UNIT XX (13:07)
[2021-11-22] MEDS: vancomycin 1,000 MG SDV 1000 MG XX (13:08)
--- NOTE | 2021-11-22 13:47 | P.OP_ITS ---
Operative Report Date of procedure: November 22, 2021 Pre-op Diagnosis: T11 Chance fx; Posterior element fractures T 8, T9, T10 Post-op diagnosis: same Procedure Done: 1. T6-L1 instrumentation 2. T6- L1 posterior spine fusion 3. Use of computer navigation /stereotactic spine 4. Bone marrow aspiration Right iliac crest through separate incision 5. Use of autograft 6. use of allograft Surgeon: Omari Pratt Community Services Officer: Francisco Sen Community Services Officer: The payroll human resources assistant, Francisco Sen, REGINALDO was needed for his expertise with spine surgery. He was important and necessary throughout the procedure to complete in a safe and timely manner. He assisted with patient positioning prepping and draping tissue retraction suctioning of the operative field protection of the dural sac and tissue closure Anesthesia: General Estimated blood loss (mL): 500 Condition: stable Disposition: PACU Procedure: 1. T6-L1 instrumentation 2. T6- L1 posterior spine fusion 3. Use of computer navigation /stereotactic spine 4. Bone marrow aspiration Right iliac crest through separate incision 5. Use of autograft 6. use of allograft Patient was brought to operative suite was placed in the prone position. All areas impingement well-padded. Neuro monitoring was attached to the patient. Patient was then prepped and draped in the normal sterile fashion. Skin incision made from T6 down to L1. Thoracolumbar fascia was identified and split. Subperiosteal dissection was made out to the transverse processes of L1 up to T6. The fractured spinous processes and posterior elements were identified and removed from T8-T10. The spinous processes were then dropped into bone graft and used later in the case. Patient was brought to getting the bone marrow aspirate. Skin incision was made in the right iliac crest. The [employer] cell bone marrow aspiration kit was then used sharp awl was then inserted followed by the blunt then the lumbar aspirate was extracted approximate 20 cc. Using the technique of aspirating 1 mL at a time. This bone marrow aspirate was then mixed with the ostial amp and autograft. Next the spinous process clamp was attached to the L1 spinous process. In the computer navigation fiducial was attached to this. The C-arm was brought in and spun around the patient the information was then loaded into the computer nor to be linked to facilitate using the computer navigation. Pedicle screws were then placed using the technique of using the gearshift that was linked to the computer navigation followed by the pedicle feeler probe. Followed by using the screws linked to the computer navigation. This technique was done starting at L1 bilaterally followed by T12, T11, T10, T9, T8, T7 and T6 all bilaterally. Size of the screws were all 6.5 mm. . The screws were attached to the length of the rods were then measured and rods were placed from T6 down to L1 bilaterally. The caps were then placed and torqued in position. The AP and lateral fluoroscopy was brought in to ensure that the hardware and fracture in a probe position. Next attention was brought to decorticating the bone. Is done with a high-speed bur from T6 down to L1 decorticating the lamina spinous processes. The bone graft both auto and allograft which was the [employer] bone graft mixed with a BMA was placed in the gutters on each side. And pectin to probe position. Next a deep drain and vancomycin powder were placed into the deep space. Wound was then closed in a layered fashion thoracolumbar fascia followed by skin using 0 Vicryl 2-0 Vicryl skin was closed with Monocryl with Steri-Strips Silverlon dressing was applied patient was transferred to the PACU in stable condition.
--- NOTE | 2021-11-22 14:51 | ANE.PACU2 ---
Inpatient post-anesthesia follow up: Airway intact: Yes Vital signs: Temperature 97.8 F Pulse Rate 122 Respiratory Rate 16 Blood Pressure 184/113 Pulse Oximetry 96 Oxygen Delivery Me thod Simple Mask Oxygen Flow Rate 10 Fraction of Inspir ed Oxygen Hydration adequate: Yes Nausea and vomiting: No Pain level: 5 Additional Comments: sleepy
[2021-11-22] MEDS: ipratropium 0.5 mg/2.5 mL Neb INHALATION (15:36)
[2021-11-22] MEDS: FUROsemide 10 mg/mL SDV 2mL IVP (16:31)
[2021-11-22] MEDS: HYDROmorphone 1 mg/mL INJ 1 mL 0.5 MG IVP (17:33)
--- NOTE | 2021-11-22 18:54 | PC.NURSE ---
173 - [address] Moss about oxygen saturations remaining in the 91-93% range. Orders to give 0.25 Dilaudid for pain SIVP. Nurse gave Dilaudid 0.25 mg slow IVP.Sats remained 91-93%.
--- NOTE | 2021-11-22 18:56 | PC.NURSE ---
[address] Moss about temp 100.5. Orders to transfer pt to floor ORDERS Tas long as long as heart rate below 110 and no PVCS.
[2021-11-22] MEDS: oxyCODONE-APAP 10-325 mg Tablet PO (19:55)
[2021-11-22] MEDS: ketorolac 30 mg/mL INJ IVP (19:55)
[2021-11-22] MEDS: docusate sodium 100 mg Capsule PO (19:59)
[2021-11-22] MEDS: lactated ringers 1,000 ML 90 ML IV (20:05)
[2021-11-22] MEDS: HYDROcodone-acetaminophen 5-325 mg Tablet PO (23:59)
[2021-11-23] MEDS: ketorolac 30 mg/mL INJ IVP ×2 (01:49→08:24)
[2021-11-23 03:50] VITALS: RESP 18
[2021-11-23] MEDS: oxyCODONE-APAP 10-325 mg Tablet PO (03:50)
[2021-11-23 05:28] VITALS: BP 122/73; PULSE 80; RESP 17; TEMP 37.1; O2SAT 95
--- NOTE | 2021-11-23 06:22 | P.DS_ITS ---
Discharge Providers Date of Admission: 11/22/21 18:58 Date of Discharge: November 23, 2021 Attending Provider at Admission: Omari Pratt DO Attending Provider at Discharge: Omari Pratt DO Primary Care Provider: Basilio Valladares MD Reason for Visit Reason for Visit: Fracture of thoracic vertebra Hospital Course Hospital Course pt admitted on 11/22/21 and d/c on 11/23/21. stay was uneventful Physical Exam Narrative: EXAM NARRATIVE: resting in bed 5/5 strength Urinary Catheter Management^: Stubbs: Cath Placed During This Visit: yes, but has since been removed by the nurse Urinary Catheter Date of Insertion: 11/22/21 Urinary Catheter Time of Insertion: 11:15 Date Urinary Catheter Removed: 11/22/21 Time Urinary Catheter Discontinued: 14:00 Discharge Data Data Completed and Pending: Completed Studies During Hospitalization Category Date Time Status XR thoracic spine 2V 55958 Routine Exams 11/22/21 Completed Pending at discharge Category Date Time Status C-arm Fluoroscopy [id number] Routine Exams 11/22/21 Stop Req Retype for Patiet s ABO/Rh Routine Lab 11/22/21 13:22 Ordered Labs from last 24 hours 11/22/21 11/22/21 10:05 10:05 WBC 15.6 H RBC 3.84 L Hgb 12.9 Hct 39.3 L MCV 102.3 H MCH 33.6 MCHC 32.8 RDW 13.6 Plt Count 346 MPV 11.1 H Neut % (Auto) 68.0 Lymph % (Auto) 11.0 Bee % (Auto) 11.2 Eos % (Auto) 8.5 Baso % (Auto) 0.9 Neut # (Auto) 10.58 H Lymph # (Auto) 1.7 Bee # (Auto) 1.7 H Eos # (Auto) 1.3 H Baso # (Auto) 0.1 Nucleated RBC % (a uto) 0 Nucleated RBCs # 0.0 Blood Type A Positive Rho(D) Type Positive Antibody Screen Negative Vitals: Last Vital Signs Temp 98.8 F 11/23/21 05:28 Pulse 80 11/23/21 05:28 Resp 17 11/23/21 05:28 BP 122/73 11/23/21 05:28 Pulse Ox 95 11/23/21 05:28 Discharge Plan Discharge Patient Disposition: Home Condition: Stable Prescriptions: New Percocet 10-325 mg tablet 1 - 2 tab PO Q4H PRN (Reason: pain) 7 Days Qty: 40 RF: 0 Continued pantoprazole 40 mg tablet,delayed release (DR/EC) 40 mg PO QAM Qty: 90 RF: 3 Percocet 10-325 mg tablet 1 tab PO Q6H PRN (Reason: pain) 2 Days Qty: 14 RF: 0 ondansetron HCl [Zofran] 4 mg tablet 4 mg PO Q6H PRN (Reason: nausea and vomiting) Qty: 30 RF: 0 trazodone 150 mg tablet 150 mg PO BEDTIME PRN (Reason: Insomnia) RF: 0 amlodipine-benazepril 5-40 mg capsule 1 cap PO QAM RF: 0 lidocaine 5 % adhesive patch,medicated See Rx Instructions .ROUTE .COMPLEX RF: 0 citalopram 20 mg tablet 20 mg PO QAM RF: 0 Discharge Orders: Discharge Order (Routine); Ordered 11/23/21 Ordered By: Omari Pratt Discharge Diet: Advance as tolerated Discharge Activity: Limit activity as instructed Patient Instructions: Opioid Safety Activity Restrictions/Additional Instructions: Thank you for [facility] for your care! The following is a list of instructions, from your provider, to follow upon your discharge to ensure you have the optimal recovery from your recent injury orsurgery. Follow-up care is a senior part of your treatment and safety. Be sure to make and go to all appointments, and call your doctor if you are having problems. If you do not already have a follow-up appointment made, call Dr. Pratt office in the next 1-3 days to make follow up appointment for1 weeks at [phone]. It is also a good idea to know your test results and keep a list of the medicines you take. Medications will be prescribed for you at your provider's discretion. These medications are to be used as instructed; if they are taken more often that prescribed they will not be refilled early and in most cases will not be refilled at all. > When a refill is needed,you should contact nilsa srivastava 2-3 business days before your prescription runs out. Medications will NOT be refilled by presentation team member providers after hours! > Many pain medications contain Tylenol (Acetaminophen). Do not consume more than 4,000 mg of Tylenol per day in total with any combination ofmedications. > Pain medications can cause constipation. Please use an over the counter stool softener as directed, while taking pain medications. Consulty our local pharmacist with questions or recommendations on stool softeners. If constipation persists, contact our office or your primary care provider. > While under our care,you are not to receive pain medications or other controlled substances from any other provider unless our office is notified and approves. Any attempts to do so will result in refusal to prescribe any further pain medications and possible dismissal from our practice. ? Keep dressing on at all times call if drainage ? Walking is essential for the healing process after surgery. We would like you to slowly advance your walking. This should be done on relatively flat clear ground (inside or out) or can be done on a treadmill. Remember this goal does not have to happen all at once, slowly increase your distance and duration. This can be broken into more more than one walk per day as tolerated. Patients who walk as directed after surgery rarely require Physical Therapy. In the unlikely event this issue arises your provider will direct hospital staff to make the appropriate arrangements. ? No lifting over 5 pounds {a gallon of milk) or bending/twisting until further notice. Each of these activities places an unnecessary amount of stress onto the body and can impede the delicate healing process. > Instead of bending at the waist, keep your back straight and bend at the knees. > Instead of twisting your torso, keep your back straight and turn your entire body with your feet. ? You may sleep in any position which makes you comfortable. Many patients find comfort sleeping in a reclining chair. It is not abnormal to have difficulty sleeping for the first several weeks following your surgery. We recommend trying Benadry! or Tylenol PM as directed to help with your sleeping difficulties. Both medications are over the counter and available withoutprescription. ? NO SMOKING!!! Smoking dramatically increases the probability of developing postoperative wound infections. ? Common complaints after lumbar and/or thoracic spine surgery include, but are not limited to: numbness and/or tingling in the legs, pain around the incision and surrounding tissues, muscle spasms, or stiffness of the middle to low back. Contact our office if these symptoms persist or if an acute change occurs. ? No driving for the first 3-5days, and not while taking narcotics until seen at your follow-up appointment and cleared. There are no restrictions for riding on short trips, however if you take a longer trip, arrangements should be made to make regular stops to get out of the vehicle and stretch . ? Swelling is an unfortunate event that will take place with any surgery and is the primary source of your postoperative discomfort. While walking and regular approved activities helps control inflammation, there are additional steps you can take to minimizeswelling. > Place ice over the surgical site and surrounding tissue for twenty minutes, followed by applying a low/medium heat (heating pad) for an additional twenty minutes every 1-2 hours as needed for painrelief. > You may use of over the counter anti-inflammatory medications (Ibuprofen, Motrin, Aleve, Advil, etc) as directed on the package label. These types of medicines wm significantly reduce the amount of discomfort you experience after surgery from swelling. It should be noted that if you have and allergy to any of these medications, or a history of ulcers or kidney disease you should consult you primary care provider prior to starting these medications. Discharge Attestations Time Spent in Discharge Care*: less than 30 min Quality Metrics Clinical Quality Measures During this hospital stay, did patient experience: None Coding Level of Care Code Acute Chg FW DC note
[2021-11-23] MEDS: enoxaparin 40 mg/0.4 mL Syringe SUBCUT (06:38)
[2021-11-23] MEDS: docusate sodium 100 mg Capsule PO (08:24)
[2021-11-23 09:04] VITALS: BP 104/71; PULSE 92; RESP 16; TEMP 37.2; O2SAT 91
[2021-11-23] MEDS: HYDROcodone-acetaminophen 5-325 mg Tablet PO (10:43)
--- NOTE | 2021-11-23 11:52 | PC.NURSE ---
DISCHARGE PAPERWORK GONE OVER WITH PT. THE IMPORTANCE OF LOG ROLLING, NOT BENDING OR TWISTING WHEN GETTING UP, AND NOT LIFTING ANYTHING OVER 5LBS WAS DISCUSSED WITH THE PT. LEAVING THE DRESSING ON WAS ALSO DISCUSSED WITH THE PT. ALL QUESTIONS WERE ANSWERED. IV REMOVED. PT TOLERATED WELL. CATHETER TIP INTACT. PT SAFELY WHEELED OUT BY THIS NURSE.
[2021-11-23 12:05] VITALS: BP 104/71; PULSE 92; RESP 16; TEMP 37.2; O2SAT 91
== END 2021-11-23 06:00 | disposition home or self-care (01) ==
LOC: OR 09:32 → MEDSURG 11-23 06:22
PROVIDERS: PCP Internal Medicine; Visit Provider Orthopaedic Surgery
PROC: (CPT 22612; principal; 2021-11-22 10:45)
DX: S22.089A Unspecified fracture of T11-T12 vertebra, initial encounter for closed fracture (principal); S22.069A Unspecified fracture of T7-T8 vertebra, initial encounter for closed fracture; S22.079A Unspecified fracture of T9-T10 vertebra, initial encounter for closed fracture; V89.2XXA Person injured in unspecified motor-vehicle accident, traffic, initial encounter
CPT/HCPCS: 20930; 20936; 20939; 22610; 22614; 22843; 61783; 36415; 51702; 72070; 76000; 85025; 86850; 86900; 96372; 97116; 97161; C1713; J0330; J0690; J1100; J1170; J1644; J1650; J1885; J1940; J2310; J2704; J2710; J3010; J3370; J3490; J7030; J7611; J7644

== ENCOUNTER → 2021-12-03 11:12 | Outpatient (BNVA) | payer BC, SELFPAY | PROVIDERS: PCP Internal Medicine; Visit Provider Physician Assistant | DX: Z98.1 Arthrodesis status (principal) | CPT/HCPCS: 72070 ==

== ENCOUNTER → 2022-01-07 14:19 | Outpatient (BNVA) | payer BC, SELFPAY | PROVIDERS: PCP Internal Medicine; Visit Provider Physician Assistant | DX: Z98.1 Arthrodesis status (principal) | CPT/HCPCS: 72072 ==

== ENCOUNTER → 2022-02-18 14:19 | Outpatient (BNVA) | payer BC, SELFPAY | PROVIDERS: PCP Internal Medicine; Visit Provider Orthopaedic Surgery | DX: Z98.1 Arthrodesis status (principal) | CPT/HCPCS: 72070 ==

== ENCOUNTER 2022-04-25 13:42 | Emergency (ER) | payer BC, SELFPAY ==
[2022-04-25 14:10] VITALS: BP 138/85; PULSE 103; RESP 14; TEMP 36.7; O2SAT 99; BMI 28.0
--- NOTE | 2022-04-25 14:25 | ED_ITS ---
HPI - Alcohol General: Chief Complaint: Alcohol Stated Complaint: alcohol Time Seen by Provider: 04/25/22 14:22 History of Present Illness: Patient is a 37-year-old male who comes to the ED for alcohol detox. Patient wants to stop drinking alcohol and says that he needs some help but does not want to go to any detox facility. Patient has been drinking alcohol daily for the past couple years with some occasional episodes of detox where he was not drinking. The past couple months he has been drinking alcohol daily. He says he has at least 12 shots of liquor a day. He drank ye sterday and then this morning he woke up and had some nausea and stomachache and thought he was having some withdrawal symptoms so we took 2 shots of liquor. He then called the ambulance to bring him here to the ED. Patient wants to detox from alcohol and states he just needs little help. Denies history any withdrawal seizures in the past or any delirium tremens. He denies any SI, HI, auditory or visual hallucinations. Associated symptoms: Reports nausea; Deny abdominal pain or vomiting Review of Systems Const: Denies: fever(s), chills or fatigue Eyes: Denies: change in vision or eye discomfort ENMT: Denies: throat pain, odynophagia, nasal discharge or nasal congestion Card: Denies: chest pain, palpitations, edema, swelling of feet/ankles, dyspnea on exertion or orthopnea Resp: Denies: dyspnea, productive cough or non-productive cough GI: Reports: nausea; Denies: abdominal pain, vomiting, diarrhea, constipation or hematochezia : Denies: flank pain, difficulty urinating, dysuria or hematuria Musc: Denies: neck pain, back pain or extremity swelling Skin/Breast: Denies: rash or new lesions Neuro: Denies: headache(s), numbness in extremities or weakness in extremities PFSH ED PFSH: Medical History Alcohol intoxication Major depression Suicidal ideation Ureterolithiasis Social History Smoking and tobacco status: never smoked Quit status (tobacco): considering quitting Second hand smoke exposure: No Alcohol intake: current Alcohol intake frequency: few times a week Marital status: Current occupational status: employed Current gender identity: Male Physical Exam Const: COMMON NORMALS: no acute distress, patient oriented x3 and alert GENERAL APPEARANCE: cooperative and comfortable OTHER: Patient does not appear intoxicated and is able to ambulate normally. He answers all questions appropriately as well. HENMT: COMMON NORMALS: normocephalic HEAD & SCALP: normocephalic MOUTH: Normal oral and palatal mucosa present THROAT: posterior oropharynx normal and uvula midline Neck/C-Spine: COMMON NORMALS: supple GENERAL: Yes normal visual inspection Resp: COMMON NORMALS: normal respiratory effort, No retractions, No use of accessory muscles and clear to auscultation bilaterally AUSCULTATION: clear to auscultation bilaterally Cardio: COMMON NORMALS: regular rate, regular rhythm, S1 normal heart sound present, S2 normal heart sound present, No gallops present (Cardio), No clicks present (Cardio), No murmurs present (Cardio) and Peripheral pulses 2+ througho ut RATE: regular rate RHYTHM: regular rhythm HEART SOUNDS: S1 normal heart sound present and S2 normal heart sound present PERIPHERAL PULSES: Peripheral pulses 2+ throughout GI: COMMON NORMALS: Normal to inspection, nondistended, normoactive bowel sounds present, Soft to palpation, non-tender and no masses PALPATION: Yes Soft to palpation : COMMON NORMALS: Yes no CVA tenderness BLADDER/KIDNEY EXAM: Yes no CVA tenderness Back/Pelvis: COMMON NORMALS: no CVA tenderness Extremity: COMMON NORMALS: normal to inspection Neuro: COMMON NORMALS: patient oriented x3 and moves all extremities SENSORIUM/ORIENTATION: Yes alert Skin: GENERAL SKIN EXAM: dry skin Course Vital Signs: Vital signs: Vital Signs Temperature 98.0 F 04/25/22 14:10 Pulse Rate 103 H 04/25/22 14:10 Respiratory Rate 18 04/25/22 17:45 Blood Pressure 138/85 04/25/22 14:10 Pulse Oximetry 99 04/25/22 14:10 MDM - Alcohol Medical Decision Making Patient is a 37-year-old male who comes to the ED for alcohol detox. Patient wants to stop drinking alcohol and says that he needs some help but does not want to go to any detox facility. Patient has been drinking alcohol daily for the past couple years with some occasional episodes of detox where he was not drinking. The past couple months he has been drinking alcohol daily. Patient does not appear intoxicated and is able to ambulate normally. He answers all questions appropriately as well. He does not appear to be suffering any withdrawal symptoms. Vitals are stable. Patient's blood alcohol level was 347. He was given 2 L of IV fluids here in the ED and some Zofran. Patient was stable for discharge home and sent with a prescription for Librium as he goes through alcohol detox. I stressed with him to not drink any alcohol while t aking Librium and told him about potential risk of doing so. He was told to follow-up with his PCP in the next couple days for reevaluation. Patient understood and agreed with plan. Lab Data I reviewed the patient's lab results. : 04/25/22 15:13 04/25/22 15:13 Laboratory Results WBC 14.6 10^3/uL (4.0-10.0) H 04/25/22 15:13 RBC 3.88 10^6/uL (4.1-5.3) L 04/25/22 15:13 Hgb 13.4 g/dL (11.7-16.6) 04/25/22 15:13 Hct 38.6 % (42.0-52.0) L 04/25/22 15:13 MCV 99.5 fl (80-94) H 04/25/22 15:13 MCH 34.5 pg (28.0-34.0) H 04/25/22 15:13 MCHC 34.7 g/dL (30.0-36.0) 04/25/22 15:13 RDW 13.7 % (12.1-15.1) 04/25/22 15:13 Plt Count 149 10^3/cmm (130-400) 04/25/22 15:13 MPV 9.8 fL (7.4-10.4) 04/25/22 15:13 Neut % (Auto) 66.2 % 04/25/22 15:13 Lymph % (Auto) 18.2 % 04/25/22 15:13 [place] % (Auto) 10.0 % 04/25/22 15:13 Eos % (Auto) 4.2 % 04/25/22 15:13 Baso % (Auto) 1.1 % 04/25/22 15:13 Neut # (Auto) 9.71 10^3/uL (1.8-7.7) H 04/25/22 15:13 Lymph # (Auto) 2.7 10^3/uL (0.8-4.8) 04/25/22 15:13 [place] # (Auto) 1.5 10^3/uL (0.2-0.9) H 04/25/22 15:13 Eos # (Auto) 0.6 10^3/uL (0.0-0.8) 04/25/22 15:13 Baso # (Auto) 0.2 10^3/uL (0.0-0.1) H 04/25/22 15:13 Nucleated RBC % (auto) 0 % 04/25/22 15:13 Nucleated RBCs # 0.0 /100WBC 04/25/22 15:13 Sodium 140 mmol/L (136-145) 04/25/22 15:13 Potassium 3.2 mmol/L (3.5-5.1) L 04/25/22 15:13 Chloride 102 mmol/L (98-107) 04/25/22 15:13 Carbon Dioxide 26 mmol/L (22-29) 04/25/22 15:13 Anion Gap 15.2 (5-19) 04/25/22 15:13 BUN 5 mg/dL (6-20) L 04/25/22 15:13 Creatinine 0.5 mg/dL (0.7-1.2) L 04/25/22 15:13 GFR Calculation 186.1 mL/min (90-130) H 04/25/22 15:13 Glucose 113 mg/dL (65-115) 04/25/22 15:13 Calculated Osmolality 288 mOsm/kg (285-295) 04/25/22 15:13 Calcium 7.6 mg/dL (8.5-10.5) L 04/25/22 15:13 Total Bilirubin 4.1 mg/dL (0.15-1.2) H 04/25/22 15:13 AST 181 U/L (0-40) H 04/25/22 15:13 ALT 41 U/L (0-41) 04/25/22 15:13 Alkaline Phosphatase 218 IU/L (40-130) H 04/25/22 15:13 Total Protein 7.9 g/dL (6.6-8.7) 04/25/22 15:13 Albumin 3.1 g/dL (3.5-5.2) L 04/25/22 15:13 Globulin 4.8 g/dL (1.3-4.6) H 04/25/22 15:13 Ethyl Alcohol 347 mg/dL (0-10) H* 04/25/22 15:13 Discharge Plan Discharge Patient Disposition: Home Clinical Impression: Alcohol intoxication Qualifiers: Complication of substance-induced condition: uncomplicated Qualified Code(s): F10.920 - Alcohol use, unspecified with intoxication, uncomplicated Condition: Stable Prescriptions: No Action (DME) Bone Growth Stimulator E0748 See Rx Instructions .Route .MEDSUPPLY Qty: 1 0RF Rx Instructions: As directed oxycodone 5 mg tablet 5 mg PO Q8H PRN (Reason: pain) 7 Days Qty: 20 0RF citalopram 20 mg tablet 20 mg PO QAM 0RF Prilosec OTC 20 mg Tablet,Delayed Release (Dr/Ec) 20 mg PO DAILY 0RF lactulose 20 gram/30 mL solution 20 g PO TID PRN (Reason: Constipation) 0RF Discharge Orders: Discharge ED (Routine); Ordered 04/25/22 Ordered By: Quincy Edwards Referrals: Basilio Valladares MD [Primary Care Provider] - Discharge Diet: Regular Discharge Activity: Increase activity as tolerated Patient Instructions: Alcohol Abuse, Alcohol Intoxication (DC), Alcohol Withdrawal (DC) Activity Restrictions/Additional Instructions: Follow-up with medical provider as directed in the next 5 days for reevaluation. If you are serious about alcohol withdrawal you can take this prescribed Librium to help with alcohol withdrawal symptoms every 6 hours as prescribed. Do not take Librium while drinking alcohol. Take Medications as prescribed. Return to the ER or your medical provider if condition worsens. Please read and understand discharge instructions. Thank you for choosing [facility] for your healthcare needs today. Please realize this is an emergency room and that we are providing you with a medical screening exam and this may not be complete and all inclusive of all the testing and or work up that you may need to determine your ailment or severity of your illness. It is very important that you follow up as instructed or that you return to the Emergency Department should you have concerns or if your condition changes or worsens in any way. Coding Level of Care Code ED Single End Sewer for Vj Fwd Exam Comprehensive
[2022-04-25] MEDS: sodium chloride 0.9% 1,000 ML 999 ML IV (15:09)
[2022-04-25] MEDS: ondansetron 2 mg/ML SDV 2 mL 4 MG IVP (15:10)
[2022-04-25 15:40] LABS: Basophils # 0.2 10^3/uL (0.0-0.1); Basophils % 1.1 %; Eosinophils # 0.6 10^3/uL (0.0-0.8); Eosinophils % 4.2 %; Hematocrit 38.6 % (42.0-52.0); Hemoglobin 13.4 g/dL (11.7-16.6); Lymphocytes # 2.7 10^3/uL (0.8-4.8); Lymphocytes % 18.2 %; Mean Corpuscular HGB Conc 34.7 g/dL (30.0-36.0); Mean Corpuscular Hemoglobin 34.5 pg (28.0-34.0); Mean Corpuscular Volume 99.5 fl (80-94); Mean Platelet Volume 9.8 fL (7.4-10.4); Monocytes # 1.5 10^3/uL (0.2-0.9); Neutrophils # 9.71 10^3/uL (1.8-7.7); Neutrophils % 66.2 %; Nucleated Red Blood Cells % 0 %; Platelet Count 149 10^3/cmm (130-400); Red Blood Count 3.88 10^6/uL (4.1-5.3); Red Cell Distribution Width 13.7 % (12.1-15.1); White Blood Count 14.6 10^3/uL (4.0-10.0)
[2022-04-25 15:53] LABS: Alanine Aminotransferase 41 U/L (0-41); Albumin Level 3.1 g/dL (3.5-5.2); Alkaline Phosphatase 218 IU/L (40-130); Anion Gap 15.2 (5-19); Aspartate Amino Transferase 181 U/L (0-40); Blood Urea Nitrogen 5 mg/dL (6-20); Calcium 7.6 mg/dL (8.5-10.5); Carbon Dioxide 26 mmol/L (22-29); Chloride 102 mmol/L (98-107); Globulin 4.8 g/dL (1.3-4.6); Glomerular Filtration Rate 186.1 mL/min (90-130); Glucose 113 mg/dL (65-115); Osmolality Calculated 288 mOsm/kg (285-295); Potassium 3.2 mmol/L (3.5-5.1); Sodium 140 mmol/L (136-145); Total Bilirubin 4.1 mg/dL (0.15-1.2); Total Protein 7.9 g/dL (6.6-8.7)
[2022-04-25 16:04] LABS: Alcohol Level 347 mg/dL (0-10)
--- NOTE | 2022-04-25 16:14 | PC.PHAR ---
pt states he takes care of his own medications-pt states he hasnt taken his amlodipine-benazepril 5-40mg daily for 2 or more months rx last filled 10/17/22 90d/s-pt states still taking celexa 20mg daily rx last filled 10/17/22 90d/s [facility] states campral 333mg one tab tid filled 10/17/21 30d/s and 01/02/22 30d/s pt states not taking good graarin states rx has refills-
[2022-04-25 17:45] VITALS: RESP 18
== END 2022-04-25 17:46 | disposition home or self-care (01) ==
PROVIDERS: Emergency Provider Physician Assistant; PCP Internal Medicine
DX: F10.920 Alcohol use, unspecified with intoxication, uncomplicated (principal); Y90.8 Blood alcohol level of 240 mg/100 ml or more
CPT/HCPCS: 80053; 80307; 85025; 96361; 96374; 96375; 99284; J2405; J3411; J7030

== ENCOUNTER 2022-04-30 11:30 | Emergency (ER) | payer BC, SELFPAY ==
[2022-04-30] VITALS (9 sets, daily range): BP systolic 87–121; BP diastolic 46–66; PULSE 96–109; RESP 12–18; TEMP 36.3; O2SAT 91–97
--- NOTE | 2022-04-30 11:39 | CT_ITS ---
WS: [id number] CT HEAD NONCONTRAST HISTORY: AMS TECHNIQUE: Contiguous axial imaging performed through the brain in 2.5 mm imaging. Bone and soft tiss ue windows. Sagittal and coronal reformats reviewed. All CT scans at [facility] use at least one of these dose optimization techniques: automated exposure control; mA and/or kV adjustment per pa tient size (includes targeted exams where dose is matched to clinical indication); or iterative recon struction. DLP: 905.43 mGy.cm COMPARISON: 11/19/2021 No acute intracranial hemorrhage, midline shift or mass effect. No atrophy or prior infarcts or herniation. Ventricles: Normal size with no hydrocephalus. Paranasal sinuses: As visualized are clear. Mastoid air cells: Well pneumatized. Calvarium and scalp: Skull is intact with no soft tissue edema or swelling. CT/CT head wo con* [id number] IMPRESSION: Negative head CT.
--- NOTE | 2022-04-30 11:39 | XR_ITS ---
WS: [id number] PORTABLE CHEST HISTORY: sob COMPARISON: 11/15/2021 New area of consolidation centered over the RIGHT hilum. Bronchial wall thickening with soft tissue e xtension into the RIGHT lower lobe and probably also the RIGHT middle and RIGHT upper lobe. The LEFT lung is clear. No pleural effusion or pneumothorax. Cardiac size: Normal. Mediastinum/Aorta: Normal mediastinum. Status post extensive thoracolumbar junction fusion. XR/XR chest 1V portable [id number] IMPRESSION: 1. Dense area of consolidation centered over the RIGHT hilum with extension in to the RIGHT upper, RIGHT lower and probable RIGHT middle lobes consistent with pneumonia. Recommend follow-up to resolution. 2. Extensive thoracolumbar junction hardware.
--- NOTE | 2022-04-30 11:40 | ECG_ITS ---
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 Measurements Intervals [place] Rate: 102 P: 38 SC: 136 QRS: 99 QRSD: 102 T: 31 QT: 348 QTc: 455 Interpretive Statements SINUS TACHYCARDIA BORDERLINE RIGHT AXIS DEVIATION [QRS AXIS > 90] ABNORMAL RHYTHM ECG Compared to ECG 11/15/2021 11:54:38 Sinus rhythm no longer present T-wave abnormality no longer present Electronically Signed On 04-30-2022 15:17:06 CDT by Neo Rodriguez M.D. [id number]
--- NOTE | 2022-04-30 11:40 | PC.NURSE ---
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
--- NOTE | 2022-04-30 11:42 | ED_ITS ---
HPI - Altered Mental Status General: Chief Complaint: Altered Mental Status Stated Complaint: AMS, HYPOTENSION Time Seen by Provider: 04/30/22 11:32 History of Present Illness: 37-year-old presents due to altered mental status and shortness of breath. Per EMS they were called to his house her mom states that he was confused since yesterday. Patient does have a history of drinking recently has been on Librium states he is also been taking meclizine and Ativan. Denies any other drug use however paramedics did note pinpoint pupils despite the house being dark. Patient denies any focal pain. Denies any chest pain shortness of breath or lower extremity pain or swelling. Denies any fever or rash. Denies any head injury. Denies any blood thinners. Denies any focal numbness weakness or tingling. Was noted by EMS to have blood pressure in the 80s over 50s and improved to normal blood pressure after 1 L of IV normal saline. Also noted to have hypoxia on room air requiring 5 L by nasal cannula. Review of Systems Narrative: - CONSTITUTIONAL: Denies weight loss, fever and chills. - HEENT: Denies changes in vision and hearing. - RESPIRATORY: As above - CV: Denies palpitations and CP. - GI: Denies abdominal pain, nausea, vomiting and diarrhea. - : Denies dysuria and urinary frequency. - MSK: Denies myalgia and joint pain. - SKIN: Denies rash and pruritus. - NEUROLOGICAL: As above - PSYCHIATRIC: Denies suicidal ideation PFS ED PFSH: Medical History Alcohol intoxication Major depression Suicidal ideation Ureterolithiasis Social History Smoking and tobacco status: never smoked Quit status (tobacco): considering quitting Second hand smoke exposure: No Alcohol intake: current Alcohol intake frequency: few times a week Marital status: Current occupational status: employed Current gender identity: Male Physical Exam Narrative: - GENERAL: Alert and oriented x 3. No acute distress. Well- nourished. - EYES: EOMI. Anicteric. - HENT: Atraumatic, no C-spine tenderness. Moist mucous membranes. No scleral icterus. No cervical lymphadenopathy. - LUNGS: On nasal cannula clear to auscultation bilaterally. No accessory muscle use. Equal lung sounds bilaterally. No respiratory distress. - CARDIOVASCULAR: Regular rate and rhythm. No murmur. No JVD. - ABDOMEN: Soft, non-tender and distended. Negative CVA tenderness bilaterally, no rebound or guarding, negative Zamora sign. No palpable masses. - EXTREMITIES: No edema. Non-tender. - SKIN: jaundice, No rashes or lesions. Warm. - NEUROLOGIC: Does not appear to be altered. No meningismus or focal neurological deficits. CN II-XII grossly intact. - PSYCHIATRIC: Cooperative. Appropriate mood and affect. Course Vital Signs: Vital signs: Vital Signs Temperature 97.3 F L 04/30/22 11:36 Pulse Rate 96 04/30/22 18:30 Respiratory Rate 13 04/30/22 18:30 Blood Pressure 121/66 04/30/22 18:30 Pulse Oximetry 96 04/30/22 18:30 MDM - Altered Mental Status Medical Decision Making 37-year-old presents initially due to altered mental status. Suspecting lukas ypharmacy. Significantly improved with Narcan and following this he is alert and oriented. CT scan of the head does not reveal any intracranial hemorrhage or other acute abnormality. However patient does have signs of liver failure. He denies any abdominal pain. Does have new oxygen requirement to 4 L by nasal cannula. Imaging concerning for pneumonia. There is also some abdominal edema. However he denies any abdominal pain. Patient does have elevated creatinine bilirubin lactic acid. Sepsis order set initiated. Following fluids and albumin patient is hemodynamically stable afebrile nontoxic-appearing. He continues to have no abdominal tenderness. At this time do not see any signs of mesenteric ischemia. COVID swab is negative. Discussed with [facility] and they will be able to accept transfer and have hepatology available to consult. Patient is currently in stable condition awaiting transfer. Lab Data : 04/30/22 11:58 04/30/22 11:58 Radiology Impressions Chest X-Ray 04/30/22 11:39 IMPRESSION: 1. Dense area of consolidation centered over the RIGHT hilum with extension into the RIGHT upper, RIGHT lower and probable RIGHT middle lobes consistent with pneumonia. Recommend follow-up to resolution. 2. Extensive thoracolumbar junction hardware. Head CT 04/30/22 11:39 IMPRESSION: Negative head CT. Chest/Abdomen/Pelvis CT 04/30/22 12:42 IMPRESSION: 1. Suboptimal and and essentially nondiagnostic evaluation of the pulmonary arteries. Large amount of artifact through the thorax from the patient's thoracic spine hardware. No large central pulmonary embolism. 2. Bilateral lower lobe opacifications, RIGHT greater than LEFT consistent with pneumonia and additional bilateral pneumonitis. 3. Severe hepatomegaly and hepatic steatosis. Similar to prior studies. 4. Splenomegaly, 15 cm in length similar to prior studies. 5. Peripancreatic edema. Correlate for possible pancreatitis. 6. There is additional submucosal edema within the ascending colon and the splenic flexure. Consider infectious etiology and also ischemic changes. 7. The appendix is normal. 8. No free air or free fluid. 9. Recanalized umbilical vein. Laboratory Results WBC 17.0 10^3/uL (4.0-10.0) H 04/30/22 11:58 RBC 3.45 10^6/uL (4.1-5.3) L 04/30/22 11:58 Hgb 12.0 g/dL (11.7-16.6) 04/30/22 11:58 Hct 35.6 % (42.0-52.0) L 04/30/22 11:58 MCV 103.2 fl (80-94) H 04/30/22 11:58 MCH 34.8 pg (28.0-34.0) H 04/30/22 11:58 MCHC 33.7 g/dL (30.0-36.0) 04/30/22 11:58 RDW 15.2 % (12.1-15.1) H 04/30/22 11:58 Plt Count 119 10^3/cmm (130-400) L 04/30/22 11:58 MPV 10.3 fL (7.4-10.4) 04/30/22 11:58 Neut % (Auto) 74.1 % 04/30/22 11:58 Lymph % (Auto) 9.3 % 04/30/22 11:58 Trigg % (Auto) 14.9 % 04/30/22 11:58 Eos % (Auto) 0.8 % 04/30/22 11:58 Baso % (Auto) 0.3 % 04/30/22 11:58 Neut # (Auto) 12.57 10^3/uL (1.8-7.7) H 04/30/22 11:58 Lymph # (Auto) 1.6 10^3/uL (0.8-4.8) 04/30/22 11:58 Trigg # (Auto) 2.5 10^3/uL (0.2-0.9) H 04/30/22 11:58 Eos # (Auto) 0.1 10^3/uL (0.0-0.8) 04/30/22 11:58 Baso # (Auto) 0.1 10^3/uL (0.0-0.1) 04/30/22 11:58 Nucleated RBC % (auto) 0 % 04/30/22 11:58 Nucleated RBCs # 0.0 /100WBC 04/30/22 11:58 PT 27.00 SECONDS (12.1-14.9) H 04/30/22 18:15 INR 2.46 (0.8-1.2) H 04/30/22 18:15 APTT 43.9 SECONDS (23.9-36.7) H 04/30/22 18:15 D-Dimer 7.50 ug/mIFEU (0-0.59) H 04/30/22 11:58 Specimen Type Arterial 04/30/22 11:56 Sample Site Radial, right 04/30/22 11:56 ABG pH 7.37 (7.35-7.45) 04/30/22 11:56 ABG pCO2 44.5 mmHg (35-45) 04/30/22 11:56 ABG pO2 80.4 mmHg (80.0-100.0) 04/30/22 11:56 ABG HCO3 25.8 mmol/L (22-26) 04/30/22 11:56 ABG O2 Saturation 95.7 04/30/22 11:56 ABG Base Excess 0.3 mmol/L (-2.0-2.0) 04/30/22 11:56 Huang Test Pos 04/30/22 11:56 A-a O2 Gradient 16.0 mmHg (5-10) H 04/30/22 11:56 Hematocrit 37.6 % (42-52) L 04/30/22 11:56 Hgb O2 Saturation 93.3 % (95-100) L 04/30/22 11:56 Carboxyhemoglobin 2.0 %THgb (0.4-20.1) 04/30/22 11:56 Methemoglobin 0.5 % (0.4-1.5) 04/30/22 11:56 Total Hemoglobin 12.3 g/dL (14-18) L 04/30/22 11:56 Sodium 134.0 mmol/L (131-143) 04/30/22 11:56 Potassium 5.1 mmol/L (3.5-5.0) H 04/30/22 11:56 Glucose 67.0 mg/dL (70-115) L 04/30/22 11:56 Ionized Calcium 1.1 mmol/L (1.1-1.4) 04/30/22 11:56 O2 Delivery Device Nc 04/30/22 11:56 O2 Liters/Min 4.0 % 04/30/22 11:56 FiO2 36.0 % 04/30/22 11:56 Bilingual Administrative Assistant ID Monro 04/30/22 11:56 Sodium 131 mmol/L (136-145) L 04/30/22 11:58 Potassium 5.2 mmol/L (3.5-5.1) H 04/30/22 11:58 Chloride 94 mmol/L (98-107) L 04/30/22 11:58 Carbon Dioxide 26 mmol/L (22-29) 04/30/22 11:58 Anion Gap 16.2 (5-19) 04/30/22 11:58 BUN 34 mg/dL (6-20) H 04/30/22 11:58 Creatinine 2.5 mg/dL (0.7-1.2) H 04/30/22 11:58 GFR Calculation 29.0 mL/min (90-130) L 04/30/22 11:58 Glucose 65 mg/dL (65-115) 04/30/22 11:58 Calculated Osmolality 278 mOsm/kg (285-295) L 04/30/22 11:58 Lactate 4.2 mmol/L (0.5-2.2) H* 04/30/22 11:58 Calcium 7.5 mg/dL (8.5-10.5) L 04/30/22 11:58 Total Bilirubin 11.4 mg/dL (0.15-1.2) H* 04/30/22 11:58 AST 136 U/L (0-40) H 04/30/22 11:58 ALT 48 U/L (0-41) H 04/30/22 11:58 Alkaline Phosphatase 156 IU/L (40-130) H 04/30/22 11:58 Ammonia 31 umol/L (16-60) 04/30/22 14:03 Troponin T Baseline 46 ng/L (0-15) H 04/30/22 11:58 Troponin T 120 Minute 53.27 ng/L (0-15) H 04/30/22 14:03 Delta Troponin T 7.27 ABS# (0-10) 04/30/22 14:03 Troponin T Hi Sens 6Hr 65.39 ng/L (0-15) H 04/30/22 18:15 Troponin T Hi Sens 6Hr Delta 19.39 ng/L (0-12) H* 04/30/22 18:15 NT-Pro-B Natriuret Pep 4096 pg/mL (0-125) H 04/30/22 11:58 Total Protein 6.5 g/dL (6.6-8.7) L 04/30/22 11:58 Albumin 2.4 g/dL (3.5-5.2) L 04/30/22 11:58 Globulin 4.1 g/dL (1.3-4.6) 04/30/22 11:58 Lipase 48 U/L (13-60) 04/30/22 11:58 Ethyl Alcohol < 10 mg/dL (0-10) 04/30/22 11:58 SARS-CoV-2 Ag (Rapid) Negative (Negative) 04/30/22 12:15 Other Data Sinus tachycardia, rate of 102, no sign of acute ischemia or other acute abnormality. Critical Care Time Critical Care Time: Critical Care Time: Yes Total Critical Care Time: 120 Attestation: This case had a high probability of a clinically significant, sudden, or life threatening deterioration of this patient's condition which required my full and direct attention, intervention and personal management. Discharge Plan Discharge Condition: Stable Prescriptions: No Action (DME) Bone Growth Stimulator E0748 See Rx Instructions .Route .MEDSUPPLY Qty: 1 0RF Rx Instructions: As directed oxycodone 5 mg tablet 5 mg PO Q8H PRN (Reason: pain) 7 Days Qty: 20 0RF citalopram 20 mg tablet 20 mg PO QAM 0RF omeprazole magnesium [Prilosec OTC] 20 mg Tablet,Delayed Release (Dr/Ec) 20 mg PO DAILY 0RF lactulose 20 gram/30 mL solution 20 g PO TID PRN (Reason: Constipation) 0RF Discharge Orders: Transfer Out of Facility (Order); Ordered 04/30/22 Ordered By: Jorje Russell Referrals: Basilio Valladares MD [Primary Care Provider] - Coding Level of Care Code ED Palaeontologist for Chg Antony
[2022-04-30] MEDS: naloxone 0.4 mg/ml SDV IVP (11:53)
--- NOTE | 2022-04-30 11:58 | PC.NURSE ---
Pt more awake after the narcan, states he has taken some hydrocodone at home for pain
[2022-04-30 12:03] LABS: ABG PCO2 44.5 mmHg (35-45); ABG PH Result 7.37 (7.35-7.45); Arterial Blood Gas Hematocrit 37.6 % (42-52); Base Excess ABG 0.3 mmol/L (-2.0-2.0); Blood Gas Allen Test Pos; Blood Gas Sample Type Arterial; HCO3 ABG 25.8 mmol/L (22-26); HGB O2 Sat 93.3 % (95-100); Ionized Calcium Level - ABG 1.1 mmol/L (1.1-1.4); Methemoglobin 0.5 % (0.4-1.5); Oxygen Saturation ABG 95.7; PO2 ABG 80.4 mmHg (80.0-100.0); Potassium Level - ABG 5.1 mmol/L (3.5-5.0); Total Hemoglobin 12.3 g/dL (14-18)
[2022-04-30 12:04] LABS: Blood Gas Operator Identificat MONRO; Blood Gas Sample Site Radial, right; Oxygen Device NC
[2022-04-30 12:09] LABS: Basophils # 0.1 10^3/uL (0.0-0.1); Basophils % 0.3 %; Eosinophils # 0.1 10^3/uL (0.0-0.8); Eosinophils % 0.8 %; Hematocrit 35.6 % (42.0-52.0); Lymphocytes # 1.6 10^3/uL (0.8-4.8); Lymphocytes % 9.3 %; Mean Corpuscular HGB Conc 33.7 g/dL (30.0-36.0); Mean Corpuscular Hemoglobin 34.8 pg (28.0-34.0); Mean Corpuscular Volume 103.2 fl (80-94); Mean Platelet Volume 10.3 fL (7.4-10.4); Monocytes # 2.5 10^3/uL (0.2-0.9); Monocytes % 14.9 %; Neutrophils # 12.57 10^3/uL (1.8-7.7); Neutrophils % 74.1 %; Nucleated Red Blood Cells % 0 %; Platelet Count 119 10^3/cmm (130-400); Red Blood Count 3.45 10^6/uL (4.1-5.3); Red Cell Distribution Width 15.2 % (12.1-15.1)
[2022-04-30 12:39] LABS: Lactate (Lactic Acid level) 4.2 mmol/L (0.5-2.2)
[2022-04-30 12:41] LABS: Troponin(5th) Baseline 46 ng/L (0-15)
--- NOTE | 2022-04-30 12:42 | CT_ITS ---
WS: [id number] CTA CHEST WITH CT ABDOMEN AND PELVIS. HISTORY: Jaundice, hypotensive and short of breath. TECHNIQUE: CT angiogram is performed through the chest. Additional imaging is performed through the a bdomen and pelvis with IV contrast. Sagittal and coronal reformats have been submitted. MIP imaging also reviewed. All CT scans at [facility] use at least one of these dose optimization techniqu es: automated exposure control; mA and/or kV adjustment per patient size (includes targeted exams whe re dose is matched to clinical indication); or iterative reconstruction. Contrast: Omnipaque 350; 95 cc IV. DLP: 1661.9 mGy.cm COMPARISON: 11/15/2021 and 10/27/2021 Chest CTA: Poor opacification of the pulmonary arteries. There is significant artifact through the ch est obscuring the pulmonary arteries from patient's thoracic spine hardware. There is also breathing motion artifact and artifact from the contrast injection. Essentially suboptimal opacification of the pulmonary arteries. Normal-sized thoracic aorta. Normal size pulmonary artery. Very mild enlargement the heart. No pericardial effusion. There is extensive mild groundglass attenuation and motion artif act throughout the lungs. Groundglass consolidation and increasing areas of consolidation at the lung bases, RIGHT greater than LEFT. No significant effusion. No adenopathy. Abdomen CT: Extensive low-attenuation throughout the liver and hepatomegaly. The liver is markedly en larged and edematous. Low attenuation from hepatic steatosis. Limited opacification of the portal vei n. Low-attenuation of the gallbladder within the liver may be an artifact. Gallbladder is negative. E nlarged spleen. Recanalized umbilical vein. Mild peripancreatic fluid and edema. No renal obstruction. LEFT renal cyst 9 mm. No atherosclerosis a emmanuel. No adrenal mass. Mild soft tissue anasarca. No GI tract obstruction. Appendix is visualized and normal caliber. There is quite a bit of motion ar tifact through the abdomen obscuring detail of the appendix but no enlargement. Mild submucosal edema and a small amount of adjacent pericolonic stranding involving the ascending colon and the splenic f lexure. No pneumatosis. No obstruction. Pelvic CT: No free fluid in the pelvis. Bowel loop well-distended urinary bladder. No adenopathy. Long segment posterior fusion at the thoracolumbar junction. CT/CT angio chest w abd pel w con IMPRESSION: 1. Suboptimal and and essentially nondiagnostic evaluation of the pulmonary ar teries. Large amount of artifact through the thorax from the patient's thoracic spine hardware. No large central pulmonary embolism. 2. Bilateral lower lobe opacifications, RIGHT greater than LEFT consistent wit h pneumonia and additional bilateral pneumonitis. 3. Severe hepatomegaly and hepatic steatosis. Similar to prior studies. 4. Splenomegaly, 15 cm in length similar to prior studies. 5. Peripancreatic edema. Correlate for possible pancreatitis. 6. There is additional submucosal edema within the ascending colon and the spl enic flexure. Consider infectious etiology and also ischemic changes. 7. The appendix is normal. 8. No free air or free fluid. 9. Recanalized umbilical vein.
[2022-04-30 12:50] LABS: Alanine Aminotransferase 48 U/L (0-41); Albumin Level 2.4 g/dL (3.5-5.2); Alkaline Phosphatase 156 IU/L (40-130); Anion Gap 16.2 (5-19); Aspartate Amino Transferase 136 U/L (0-40); Blood Urea Nitrogen 34 mg/dL (6-20); Calcium 7.5 mg/dL (8.5-10.5); Carbon Dioxide 26 mmol/L (22-29); Chloride 94 mmol/L (98-107); Globulin 4.1 g/dL (1.3-4.6); Glucose 65 mg/dL (65-115); Lipase 48 U/L (13-60); NT Pro B Type Natriuretic Pept 4096 pg/mL (0-125); Osmolality Calculated 278 mOsm/kg (285-295); Potassium 5.2 mmol/L (3.5-5.1); Sodium 131 mmol/L (136-145); Total Protein 6.5 g/dL (6.6-8.7)
[2022-04-30 12:51] LABS: Alcohol Level < 10 mg/dL (0-10)
[2022-04-30] MEDS: sodium chloride 0.9% 1,000 ML 999 ML IV (12:51)
[2022-04-30 12:52] LABS: SARS Covid-2 Antigen Negative (Negative)
[2022-04-30 12:53] LABS: Total Bilirubin 11.4 mg/dL (0.15-1.2)
[2022-04-30] MEDS: iohexol 350 mg/mL 100 mL Btl IV (13:12)
--- NOTE | 2022-04-30 13:55 | PC.NURSE ---
Pt was more somnolent again, O2 sats 88% on 5L/NC. Physician aware and ordered narcan, med given. Pt more awake within seconds. Sister at bedside
[2022-04-30] MEDS: piperacillin-tazobactam 3.375 GM in sodium chloride 0.9% (plus) 50 ML IV (14:25)
[2022-04-30 14:44] LABS: Troponin 5 2HR 53.27 ng/L (0-15); Troponin 5 2HR Delta 7.27 ABS# (0-10)
[2022-04-30 14:45] LABS: Ammonia 31 umol/L (16-60)
[2022-04-30] MEDS: ondansetron 2 mg/ML SDV 2 mL 4 MG IVP (14:46)
[2022-04-30] MEDS: vancomycin 1,250 MG/250 ML PIGGYBACK 250 MG IV (14:48)
[2022-04-30] MEDS: albumin 12.5 GM/50 ML VIAL IV (18:09)
[2022-04-30 19:22] LABS: Troponin 5 6HR 65.39 ng/L (0-15)
[2022-04-30 19:27] LABS: Troponin 5 6HR Delta 19.39 ng/L (0-12)
[2022-04-30 19:48] LABS: INR 2.46 (0.8-1.2)
[2022-04-30 19:49] LABS: Partial Thromboplastin Time 43.9 SECONDS (23.9-36.7)
[2022-05-01 00:40] VITALS: BP 112/57; PULSE 94; RESP 22; O2SAT 94
== END 2022-05-01 00:42 | disposition short-term general hospital (02) ==
PROVIDERS: Emergency Provider Emergency Medicine; PCP Internal Medicine
DX: R41.82 Altered mental status, unspecified (principal); R06.02 Shortness of breath; Z20.822 Contact with and (suspected) exposure to COVID-19
CPT/HCPCS: 36415; 36600; 70450; 71045; 71275; 74177; 80051; 80053; 80307; 82140; 82330; 82805; 83605; 83690; 83880; 84484; 85025; 85378; 85610; 85730; 87040; 87426; 93005; 96365; 96367; 96375; 96376; 99291; J2310; J2405; J2543; J3370; J7030; P9047; Q9967

== ENCOUNTER 2022-05-13 20:20 | Outpatient (CLI) | payer BC, SELFPAY ==
[2022-05-13 20:48] LABS: Basophils # 0.3 10^3/uL (0.0-0.1); Basophils % 1.4 %; Eosinophils # 0.4 10^3/uL (0.0-0.8); Eosinophils % 1.7 %; Hematocrit 30.3 % (42.0-52.0); Lymphocytes # 1.9 10^3/uL (0.8-4.8); Lymphocytes % 8.7 %; Mean Corpuscular HGB Conc 36.3 g/dL (30.0-36.0); Mean Corpuscular Hemoglobin 34.6 pg (28.0-34.0); Mean Corpuscular Volume 95.3 fl (80-94); Mean Platelet Volume 9.4 fL (7.4-10.4); Monocytes # 1.7 10^3/uL (0.2-0.9); Neutrophils # 16.78 10^3/uL (1.8-7.7); Neutrophils % 79.4 %; Nucleated Red Blood Cells % 0 %; Platelet Count 288 10^3/cmm (130-400); Red Blood Count 3.18 10^6/uL (4.1-5.3); Red Cell Distribution Width 15.1 % (12.1-15.1); White Blood Count 21.2 10^3/uL (4.0-10.0)
[2022-05-13 21:00] LABS: Alanine Aminotransferase 50 U/L (0-41); Albumin Level 2.7 g/dL (3.5-5.2); Alkaline Phosphatase 120 IU/L (40-130); Anion Gap 15.8 (5-19); Aspartate Amino Transferase 118 U/L (0-40); Blood Urea Nitrogen 19 mg/dL (6-20); Calcium 8.6 mg/dL (8.5-10.5); Carbon Dioxide 17 mmol/L (22-29); Chloride 102 mmol/L (98-107); Glomerular Filtration Rate 67.8 mL/min (90-130); Glucose 84 mg/dL (65-115); Osmolality Calculated 273 mOsm/kg (285-295); Potassium 3.8 mmol/L (3.5-5.1); Sodium 131 mmol/L (136-145); Total Protein 7.7 g/dL (6.6-8.7)
[2022-05-13 21:18] LABS: Total Bilirubin 29.5 mg/dL (0.15-1.2)
== END 2022-05-13 20:21 | disposition home or self-care (01) ==
PROVIDERS: PCP Internal Medicine; Visit Provider Internal Medicine
DX: F10.920 Alcohol use, unspecified with intoxication, uncomplicated (principal); F10.20 Alcohol dependence, uncomplicated
CPT/HCPCS: 36415; 80053; 85025

== ENCOUNTER 2022-05-26 15:17 | Inpatient (IN) | payer BC, SELFPAY ==
[2022-05-26] VITALS (16 sets, daily range): BP systolic 100–138; BP diastolic 56–73; PULSE 81; RESP 16; TEMP 36.6; O2SAT 91–100; BMI 26.9
--- NOTE | 2022-05-26 16:13 | W.ED.NAVMDI ---
Documented by User: Roberto Benson DO 05/28/22 06:21 HPI - Nausea/Vomiting/Diarrhea General: Chief complaint: Nausea/Vomiting/Diarrhea Stated complaint: vomiting Time Seen by Provider: 05/26/22 16:11 Source: patient Mode of arrival: ambulatory Limitations: no limitations History of Present Illness: 37-year-old male presents to the emergency room complaining nausea and vomiting for the last week week and a half patient has a history of alcoholic cirrhosis about a month ago he did begin drinking again briefly he was put on some Librium and he is not drank for several weeks now. He is very tired fatigued he is obviously very very jaundiced essentially from head to toe his sclera are very icteric. He has been very sleepy easily nauseated not been able to tolerate much for p.o. because of the nausea. He has been referred to hepatology notes reviewed in the chart. He has tried I doubt this try home with no relief MD elicited complaint: nausea and vomiting Pertinent past history: alcohol abuse and other (Alcoholic liver cirrhosis) Onset (ago): week(s) Description of vomiting: watery and bilious Associated nausea: Yes Associated abdominal pain: Yes Location of pain: Epigastric Severity: severe Quality: aching Exacerbating factors: eating Relieving factors: none Associated symtoms: Reports altered mental status (Mild), fatigue, anorexia, malaise, nausea and weakness; Denies anxiety, bloating, change in vision, chest pain, cough, diaphoresis, decreased urine output, dizziness, dysuria, epistaxis, fecal incontinence, fevers/chills, headache(s), myalgias, numbness, palpitations, rash, short of breath, syncope, tenesmus or tinnitus Review of Systems Const: Reports: fatigue and malaise; Denies: fever(s), chills or diaphoresis Eyes: Denies: change in vision ENMT: Denies: tinnitus or epistaxis Card: Denies: chest pain, palpitations or syncope Resp: Denies: dyspnea, productive cough or non-productive cough GI: Reports: abdominal pain, nausea and vomiting; Denies: diarrhea, bloating or fecal incontinence : Denies: flank pain, difficulty urinating, dysuria, urinary frequency or urinary urgency Skin/Breast: Denies: rash or pruritus Neuro: Denies: headache(s) or dizziness Psych: Denies: anxiety PFSH ED PFSH: Medical History Alcohol intoxication Major depression Suicidal ideation Ureterolithiasis Surgical History History of back surgery Family History Other CAD (coronary artery disease) Social History Smoking and tobacco status: never smoked Quit status (tobacco): considering quitting Second hand smoke exposure: No Alcohol intake: current Alcohol intake frequency: few times a week Marital status: Current occupational status: employed Current gender identity: Male Physical Exam Const: EXAM LIMITATIONS: altered mental status (Mild) GENERAL APPEARANCE: cooperative and comfortable ORIENTATION/CONSCIOUSNESS: Yes awake HENMT: COMMON NORMALS: normocephalic and atraumatic HEAD & SCALP: normocephalic and atraumatic Resp: COMMON NORMALS: normal respiratory effort, No retractions, No use of accessory muscles and clear to auscultation bilaterally AUSCULTATION: clear to auscultation bilaterally Cardio: COMMON NORMALS: regular rate, regular rhythm and No murmurs present (Cardio) RATE: regular rate RHYTHM: regular rhythm GI: COMMON NORMALS: Soft to palpation INSPECTION: Yes abdominal distension (Minimal) AUSCULTATION: Yes normoactive bowel sounds PALPATION: Yes Soft to palpation, No Tenderness to palpation present (GI), No Guarding due to palpation present (GI) and Yes Hepatomegaly present PERCUSSION: dullness to percussion Extremity: COMMON NORMALS: normal to inspection, capillary refill normal, no clubbing, cyanosis or edema, no calf tenderness and no pedal edema Skin: COMMON NORMALS: no rashes or lesions noted GENERAL SKIN EXAM: no rashes or lesions noted Course Vital Signs: Vital signs: Vital Signs Temperature 97.2 F L 05/28/22 04:00 Pulse Rate 77 05/28/22 06:00 Respiratory Rate 18 05/28/22 06:00 Blood Pressure 123/62 05/28/22 06:00 Pulse Oximetry 96 05/28/22 06:00 Oxygen Delivery Me thod 05/26/22 15:27 MDM - Nausea/Vomiting/Diarrhea Medical Decision Making Patient seen initially by myself. Patient obviously has severe jaundice. Labs have resulted he is in full hepatic failure and appears to be developing hepatorenal syndrome. He states he has not drank in over a month. At change of shift care turned over to Dr. Sheldon he will make attempts to transfer patient to an appropriate facility. Patient presents here with liver failure attempting transfer patient care turned over to Dr. Benson for disposition. 05/27/2022 Care assumed again from Dr. Sheldon. We have contacted [facility] with the patient is usually seen they are not able to have a bed for at least a couple of days. Discussed the hospitalist will admit here patient is on waiting list at several different facilities however they will tell us it may be several days before he is able to be transferred. I think is care will be better delivered on the inpatient setting and continue to stay in the emergency room discussed the hospitalist orders written patient and family informed as well. Medical Records I reviewed the patient's medical records. Lab Data I reviewed the patient's lab results. : 05/28/22 01:40 05/28/22 01:40 Radiology Impressions Chest X-Ray 05/27/22 06:47 IMPRESSION: No acute cardiopulmonary process. Abdomen/Pelvis CT 05/27/22 09:43 IMPRESSION: 1. Development of a small amount of free fluid within the pelvis and soft tissue anasarca. 2. Mild hepatomegaly and hepatic steatosis with recanalized umbilical vein. Consistent with portal venous hypertension. 3. Moderate submucosal edema within the RIGHT colon and to a lesser extent the transverse colon. This can be seen with cirrhosis and liver failure but also ischemic changes. 4. Normal appendix. Renal Ultrasound 05/27/22 10:12 IMPRESSION: 1. Technically difficult ultrasound evaluation of the kidneys due to body habitus. 2. No hydronephrosis or mass identified. 3. Normal size kidneys. Laboratory Results WBC 14.5 10^3/uL (4.0-10.0) H 05/27/22 06:55 RBC 2.40 10^6/uL (4.1-5.3) L 05/27/22 06:55 Hgb 8.1 g/dL (11.7-16.6) L 05/27/22 06:55 Hct 23.8 % (42.0-52.0) L 05/27/22 06:55 MCV 99.2 fl (80-94) H 05/27/22 06:55 MCH 33.8 pg (28.0-34.0) 05/27/22 06:55 MCHC 34.0 g/dL (30.0-36.0) 05/27/22 06:55 RDW 15.4 % (12.1-15.1) H 05/27/22 06:55 Plt Count 125 10^3/cmm (130-400) L 05/27/22 06:55 MPV 9.8 fL (7.4-10.4) 05/27/22 06:55 Neut % (Auto) 72.5 % 05/27/22 06:55 Lymph % (Auto) 9.8 % 05/27/22 06:55 [place] % (Auto) 12.2 % 05/27/22 06:55 Eos % (Auto) 3.9 % 05/27/22 06:55 Baso % (Auto) 1.0 % 05/27/22 06:55 Neut # (Auto) 10.48 10^3/uL (1.8-7.7) H 05/27/22 06:55 Lymph # (Auto) 1.4 10^3/uL (0.8-4.8) 05/27/22 06:55 [place] # (Auto) 1.8 10^3/uL (0.2-0.9) H 05/27/22 06:55 Eos # (Auto) 0.6 10^3/uL (0.0-0.8) 05/27/22 06:55 Baso # (Auto) 0.2 10^3/uL (0.0-0.1) H 05/27/22 06:55 Nucleated RBC % (auto) 0 % 05/27/22 06:55 Nucleated RBCs # 0.0 /100WBC 05/27/22 06:55 PT 47.20 SECONDS (12.1-14.9) H 05/27/22 06:55 INR 5.09 (0.8-1.2) H* 05/27/22 06:55 APTT 85.5 SECONDS (23.9-36.7) H 05/27/22 06:55 Sodium 133 mmol/L (136-145) L 05/27/22 06:55 Potassium 3.0 mmol/L (3.5-5.1) L 05/27/22 06:55 Chloride 106 mmol/L (98-107) 05/27/22 06:55 Carbon Dioxide 14 mmol/L (22-29) L 05/27/22 06:55 Anion Gap 16.0 (5-19) 05/27/22 06:55 BUN 33 mg/dL (6-20) H 05/27/22 06:55 Creatinine 2.7 mg/dL (0.7-1.2) H 05/27/22 06:55 GFR Calculation 26.6 mL/min (90-130) L 05/27/22 06:55 Glucose 90 mg/dL (65-115) 05/27/22 06:55 Calculated Osmolality 283 mOsm/kg (285-295) L 05/27/22 06:55 Calcium 9.0 mg/dL (8.5-10.5) 05/27/22 06:55 Total Bilirubin 25.9 mg/dL (0.15-1.2) H* 05/27/22 06:55 AST 114 U/L (0-40) H 05/27/22 06:55 ALT 58 U/L (0-41) H 05/27/22 06:55 Alkaline Phosphatase 103 IU/L (40-130) 05/27/22 06:55 Ammonia 85 umol/L (16-60) H 05/27/22 06:55 Total Protein 6.6 g/dL (6.6-8.7) 05/27/22 06:55 Albumin 2.4 g/dL (3.5-5.2) L 05/27/22 06:55 Globulin 4.2 g/dL (1.3-4.6) 05/27/22 06:55 Lipase 142 U/L (13-60) H 05/27/22 06:55 Urine Color [place] (Yellow) 05/26/22 16:51 Urine Appearance Clear (CLEAR) 05/26/22 16:51 Urine pH 6 (5-7) 05/26/22 16:51 Ur Specific [place] 1.020 (1.005-1.030) 05/26/22 16:51 Urine Protein 1+ (Negative) H 05/26/22 16:51 Urine Glucose (UA) Norm (Normal) 05/26/22 16:51 Urine Ketones Negative (Negative) 05/26/22 16:51 Urine Blood 2+ (Negative) H 05/26/22 16:51 Urine Nitrate Negative (Negative) 05/26/22 16:51 Urine Bilirubin 3+ (Negative) H 05/26/22 16:51 Urine Urobilinogen 4 mg/dL (Negative) H 05/26/22 16:51 Ur Leukocyte Esterase Negative (Negative) 05/26/22 16:51 Urine RBC 5-10 /hpf (0-2) H 05/26/22 16:51 Urine WBC 5-10 /hpf (0-5) H 05/26/22 16:51 Ur Squamous Epith Cells 0-4 /hpf (0-5) H 05/26/22 16:51 Amorphous Sediment 1+ /hpf 05/26/22 16:51 Urine Bacteria 1+ /hpf (NONE) H 05/26/22 16:51 Coarse Granular Casts 10-15 /lpf H 05/26/22 16:51 Discharge Plan Discharge Patient Disposition: Admitted As Inpatient Admit Provider: Fausto Simmons Clinical Impression: Alcohol use disorder, severe, dependence, Liver cirrhosis, Acute liver failure, SALAS (acute kidney injury), Portal hypertension, History of alcoholism, Hepatorenal syndrome, Elevated INR, Hyperbilirubinemia, Anemia Condition: Stable Coding Level of Care Code ED Hospital Product Specialist for Chg Fwd Exam Detailed Documented by User: Jensen Sheldon MD 05/27/22 18:42 HPI - Nausea/Vomiting/Diarrhea General: Chief complaint: Nausea/Vomiting/Diarrhea Stated complaint: vomiting Time Seen by Provider: 05/26/22 16:11 PFSH ED PFSH: Medical History Alcohol intoxication Major depression Suicidal ideation Ureterolithiasis Surgical History History of back surgery Family History Other CAD (coronary artery disease) Social History Smoking and tobacco status: never smoked Quit status (tobacco): considering quitting Second hand smoke exposure: No Alcohol intake: current Alcohol intake frequency: few times a week Marital status: Current occupational status: employed Current gender identity: Male Course Vital Signs: Vital signs: Vital Signs Temperature 97.2 F L 05/28/22 04:00 Pulse Rate 77 05/28/22 06:00 Respiratory Rate 18 05/28/22 06:00 Blood Pressure 123/62 05/28/22 06:00 Pulse Oximetry 96 05/28/22 06:00 Oxygen Delivery Me thod 05/26/22 15:27 MDM - Nausea/Vomiting/Diarrhea Medical Decision Making Patient presents here with liver failure attempting transfer patient care turned over to Dr. Benson for disposition. Lab Data : 05/28/22 01:40 05/28/22 01:40 Radiology Impressions Chest X-Ray 05/27/22 06:47 IMPRESSION: No acute cardiopulmonary process. Abdomen/Pelvis CT 05/27/22 09:43 IMPRESSION: 1. Development of a small amount of free fluid within the pelvis and soft tissue anasarca. 2. Mild hepatomegaly and hepatic steatosis with recanalized umbilical vein. Consistent with portal venous hypertension. 3. Moderate submucosal edema within the RIGHT colon and to a lesser extent the transverse colon. This can be seen with cirrhosis and liver failure but also ischemic changes. 4. Normal appendix. Renal Ultrasound 05/27/22 10:12
[2022-05-26] MEDS: sodium chloride 0.9% 1,000 ML 999 ML IV ×2 (16:26→18:44)
[2022-05-26] MEDS: ondansetron 2 mg/ML SDV 2 mL 4 MG IVP (16:27)
[2022-05-26 16:47] LABS: Basophils # 0.2 10^3/uL (0.0-0.1); Basophils % 1.1 %; Eosinophils # 0.7 10^3/uL (0.0-0.8); Eosinophils % 3.8 %; Hematocrit 26.8 % (42.0-52.0); Hemoglobin 9.4 g/dL (11.7-16.6); Lymphocytes # 1.7 10^3/uL (0.8-4.8); Lymphocytes % 9.3 %; Mean Corpuscular HGB Conc 35.1 g/dL (30.0-36.0); Mean Corpuscular Hemoglobin 34.4 pg (28.0-34.0); Mean Corpuscular Volume 98.2 fl (80-94); Mean Platelet Volume 10.3 fL (7.4-10.4); Neutrophils % 74.2 %; Nucleated Red Blood Cells % 0 %; Platelet Count 156 10^3/cmm (130-400); Red Blood Count 2.73 10^6/uL (4.1-5.3); Red Cell Distribution Width 15.9 % (12.1-15.1); White Blood Count 17.8 10^3/uL (4.0-10.0)
[2022-05-26 17:05] LABS: INR 4.26 (0.8-1.2)
[2022-05-26 17:12] LABS: Partial Thromboplastin Time 77.2 SECONDS (23.9-36.7)
[2022-05-26 17:16] LABS: Alanine Aminotransferase 69 U/L (0-41); Albumin Level 2.9 g/dL (3.5-5.2); Alkaline Phosphatase 119 IU/L (40-130); Anion Gap 19.2 (5-19); Aspartate Amino Transferase 141 U/L (0-40); Blood Urea Nitrogen 33 mg/dL (6-20); Calcium 9.5 mg/dL (8.5-10.5); Carbon Dioxide 13 mmol/L (22-29); Chloride 103 mmol/L (98-107); Globulin 4.9 g/dL (1.3-4.6); Glucose 103 mg/dL (65-115); Lipase 149 U/L (13-60); Osmolality Calculated 282 mOsm/kg (285-295); Potassium 3.2 mmol/L (3.5-5.1); Sodium 132 mmol/L (136-145); Total Protein 7.8 g/dL (6.6-8.7)
[2022-05-26 17:17] LABS: Ammonia 71 umol/L (16-60)
[2022-05-26 17:29] LABS: Total Bilirubin 30.1 mg/dL (0.15-1.2)
[2022-05-26 17:33] LABS: Add Urine Microscopic? YES; Bilirubin Urine 3+ (Negative); Blood Urine 2+ (Negative); Glucose Urine UA Norm (Normal); Ketones Urine Negative (Negative); Leukocyte Esterase Urine Negative (Negative); Nitrate Urine Negative (Negative); Protein Urine 1+ (Negative); Urine Appearance Clear (CLEAR); Urine Color Orange (Yellow); Urobilinogen Urine 4 mg/dL (Negative); pH Urine 6 (5-7)
[2022-05-26 17:34] LABS: Amorphous Sediment Urine 1+ /hpf; Bacteria Urine 1+ /hpf; Squamous Epithelial Cell Urine 0-4 /hpf (0-5)
[2022-05-26 17:35] LABS: Add Urine Culture? No
--- NOTE | 2022-05-26 23:00 | PC.NURSE ---
To bedside to check on patient. Pt was asking if he could leave and sleep at home. Discussed with patient the need to stay, but pt is alert and oriented with a GCS of 15. He is able to make his own decision. All options discussed and pt understands plan of care. Decided to stay. Offered comfort measures, left call light in reach. Family at bedside.
[2022-05-27] VITALS (60 sets, daily range): BP systolic 90–131; BP diastolic 55–81; PULSE 68–84; RESP 13–26; TEMP 36.5–37.1; O2SAT 90–100
[2022-05-27] MEDS: lactulose oral liq 20 gm/30 mL UDC PO ×2 (02:15→16:18)
--- NOTE | 2022-05-27 06:47 | XRR_ITS ---
PROCEDURE INFORMATION: Exam: XR Chest Exam date and time: 05/27/2022 7:09 AM Age: 37 years old Clinical indication: Dyspnea; Prior surgery; Surgery date: 6+ months; Surgery type: Rods in back TECHNIQUE: Imaging protocol: Radiologic exam of the chest. Views: 1 view. Total images: 113 COMPARISON: CR XR chest 1V portable [id number] 04/30/2022 11:50 AM FINDINGS: Lungs: Unremarkable. No consolidation. Pleural spaces: Unremarkable. No pleural effusion. No pneumothorax. Heart/Mediastinum: Unremarkable. No cardiomegaly. Bones/joints: Spinal fusion hardware noted. XR/XR chest 1V portable [id number] IMPRESSION: No acute cardiopulmonary process.
[2022-05-27 07:11] LABS: Basophils # 0.2 10^3/uL (0.0-0.1); Eosinophils # 0.6 10^3/uL (0.0-0.8); Eosinophils % 3.9 %; Hematocrit 23.8 % (42.0-52.0); Hemoglobin 8.1 g/dL (11.7-16.6); Lymphocytes # 1.4 10^3/uL (0.8-4.8); Lymphocytes % 9.8 %; Mean Corpuscular Hemoglobin 33.8 pg (28.0-34.0); Mean Corpuscular Volume 99.2 fl (80-94); Mean Platelet Volume 9.8 fL (7.4-10.4); Monocytes # 1.8 10^3/uL (0.2-0.9); Monocytes % 12.2 %; Neutrophils # 10.48 10^3/uL (1.8-7.7); Neutrophils % 72.5 %; Nucleated Red Blood Cells % 0 %; Platelet Count 125 10^3/cmm (130-400); Red Cell Distribution Width 15.4 % (12.1-15.1); White Blood Count 14.5 10^3/uL (4.0-10.0)
[2022-05-27 07:38] LABS: Ammonia 85 umol/L (16-60); Partial Thromboplastin Time 85.5 SECONDS (23.9-36.7)
[2022-05-27 07:39] LABS: Alanine Aminotransferase 58 U/L (0-41); Albumin Level 2.4 g/dL (3.5-5.2); Alkaline Phosphatase 103 IU/L (40-130); Aspartate Amino Transferase 114 U/L (0-40); Blood Urea Nitrogen 33 mg/dL (6-20); Carbon Dioxide 14 mmol/L (22-29); Chloride 106 mmol/L (98-107); Globulin 4.2 g/dL (1.3-4.6); Glomerular Filtration Rate 26.6 mL/min (90-130); Glucose 90 mg/dL (65-115); Osmolality Calculated 283 mOsm/kg (285-295); Sodium 133 mmol/L (136-145); Total Protein 6.6 g/dL (6.6-8.7)
[2022-05-27 07:40] LABS: Slide Review Slide Review Perform
[2022-05-27 07:50] LABS: INR 5.09 (0.8-1.2); Total Bilirubin 25.9 mg/dL (0.15-1.2)
[2022-05-27 08:29] LABS: Lipase 142 U/L (13-60)
--- NOTE | 2022-05-27 09:43 | CT_ITS ---
WS: [id number] CT ABDOMEN AND PELVIS NONCONTRAST HISTORY: acute liver failure TECHNIQUE: Imaging performed through the abdomen and pelvis. Coronal and sagittal reformats are submi tted. All CT scans at [facility] use at least one of these dose optimization techniques: auto mated exposure control; mA and/or kV adjustment per patient size (includes targeted exams where dose is matched to clinical indication); or iterative reconstruction. DLP: 1173.99 mGy.cm COMPARISON: 04/30/2022 Lower thorax: Lung bases are clear. Visualized heart is normal. No hiatal hernia. Liver: Mildly enlarged liver measuring just over 17 cm in length. Low attenuation from the liver from hepatic steatosis. Surface of the liver is slightly irregular suggesting changes of cirrhosis. Artif act through the upper abdominal structures from patient's spinal hardware. No mass identified or bile duct dilatation. Gallbladder: Very mildly hydropic gallbladder. Pancreas: Normal size and attenuation. Normal pancreatic duct. No pancreatitis or mass. Spleen: Spleen is mildly enlarged at 14.9 cm in length. Adrenal glands: Normal. No mass. Right kidney: Nonobstructing 2 mm calcification lower pole. Area of decreased attenuation consistent with a cyst measuring 9 mm in the mid kidney. Left kidney: Nonobstructing 2 mm calcification upper pole LEFT kidney. Mild perinephric stranding. Aorta: Normal abdominal aorta, no aneurysm or atherosclerosis. There is a small amount of free fluid in the pelvis which was not present on the study from 04/30/2022 . There is also mesenteric edema and soft tissue anasarca. GI tract: Nondistended stomach. No small bowel obstruction. The appendix is identified infiltrating a ir. The appendix is retrocecal and extends medial to the inferior tip of the RIGHT lobe of the liver. There is a additional moderate submucosal edema within the RIGHT colon. There is mild diffuse wall t hickening involving the RIGHT colon and to a lesser extent the transverse colon. There are a few dive rticula in the distal colon. Abdominal wall: Ventral abdominal wall hernia. There is a recanalized umbilical vein which protrudes through the umbilical hernia. Pelvis: Moderate free fluid in the pelvis which a not normal for a male patient. Urinary bladder is o nly minimally enlarged. No adenopathy. Osseous structures: Posterior fusion hardware is noted throughout the mid to lower thoracic spine ext ending to L1. Sclerotic changes involving the femoral heads. Suspicious for early osteonecrosis. CT/CT abdomen pelvis wo con [id number] IMPRESSION: 1. Development of a small amount of free fluid within the pelvis and soft tiss ue anasarca. 2. Mild hepatomegaly and hepatic steatosis with recanalized umbilical vein. C onsistent with portal venous hypertension. 3. Moderate submucosal edema within the RIGHT colon and to a lesser extent the transverse colon. This can be seen with cirrhosis and liver failure but also i schemic changes. 4. Normal appendix.
--- NOTE | 2022-05-27 09:57 | P.CONIM_ITS ---
Providers/Reason For Consult Consulting Physician/Specialty*: manohar titus md Reason for Consult*: SALAS Requesting Physician: Dr Fausto Simmons Attending Physician: Fausto Simmons MD Primary Care Provider: Basilio Valladares MD History of Present Illness History of Present Illness Grady Castillo is a 37 year old male alcoholic cirrhosis. Pt here w/ nausea/ vomiting. inc lfts and SALAS. Pts baseline cr 0.5. on may 13 cr was 1.2. yesterday cr 2.3 and today cr 2.7. Pt states that he is urinating. pt also noted w/ na 133 and a met acidosis w/ bicarb of 14. His bili has risen from baseline approx 4 to 11 in April 2022, glenn to 30 tis month and now is 26. Review of Systems Narrative: weak, nausea, lightheaded, diarrhea, poor appetite. sob. itching and yellow. Medications/Allergies Home Medications Medication Instructions Recorded Confirmed Last Taken Type Bone Growth Stimulator [id number] #1 ea 11/25/21 05/26/22 Unknown Rx lactulose 20 gram/30 mL oral 20 g PO TID PRN 04/25/22 05/26/22 05/26/22 History solution omeprazole magnesium 20 mg 20 mg PO DAILY 04/25/22 05/26/22 05/26/22 History tablet,delayed release (Prilosec OTC) citalopram 40 mg tablet 40 mg PO DAILY #90 tab 05/14/22 05/26/22 05/26/22 Rx rifaximin 550 mg tablet (Xifaxan) 550 mg PO BID 05/14/22 05/26/22 05/26/22 History ondansetron HCl 4 mg tablet 4 mg PO Q8H PRN #90 tab 05/20/22 05/26/22 Unknown Rx melatonin 5 mg tablet 5 mg PO BEDTIME 05/26/22 05/26/22 05/25/22 History Allergies Allergy/AdvReac Type Severity Reaction Status Date / Time No Known Allergies Allergy Verified 05/26/22 16:57 PFSH Acute PFSH: Medical History Alcohol intoxication Major depression Suicidal ideation Ureterolithiasis Social History Smoking and tobacco status: never smoked Quit status (tobacco): considering quitting Second hand smoke exposure: No Alcohol intake: current Alcohol intake frequency: few times a week Marital status: Current occupational status: employed Current gender identity: Male Vitals/I&O/Wt Last Vital Signs Temp 97.9 F 05/26/22 15:27 Pulse 76 05/27/22 09:26 Resp 14 05/27/22 09:26 BP 126/72 05/27/22 09:26 Pulse Ox 98 05/27/22 09:26 05/26/22 05/27/22 05/27/22 22:59 06:59 14:59 Intake Total 1000 / 1000 1000 / 2000 Balance 1000 / 1000 1000 / 1999 Weight last 48 hrs Weight 80.286 kg Physical Exam Narrative: icteric in chair, NARD vss heent- nc/at, icteric neck supple lungs clear heart reg abd soft- soft, nt, min ascites ext - minimal edema neuro- a,a, o x 3 Data : 05/27/22 06:55 05/27/22 06:55 A&P Assessment and plan (1) SALAS (acute kidney injury): 37 yr old man w/ cirrhosis- elevated bili and SALAS 1. SALAS- D dx is HRS, prerena, AIN vs others l-u/a 1+ prot, 2+ blood, 3+ bili, 5-10 wbc and rbc, 10-15 coarse granular casts -check urine electrolytes, cr, pr -check ck -check renal us -start albumin and ivf - bp stable 2. hyponatremia- likely prerenal and from cirrhosis and salas -check urine lytes -check tsh 3. hypokalemia- gi losses and diuretics 4. met acidosis of salas -monitor meds reviewed seen and examinedw/ RN- telehealth visit discussed w/ pt, RN and Dr Simmons time spent 50+ min Status: Acute Plan see above Consult Attestations Medical Necessity Statement: salas, liver failure Time Spent in Patient Care: Greater than 35 minutes (>than 50% of time spent in counselling and/or direct pt care on unit) . Coding Level of Care Code Acute Laboratory Machinist for [facility]j [facility] Diagnoses SALAS (acute kidney injury) N17.9
--- NOTE | 2022-05-27 10:12 | US_ITS ---
WS: [id number] RENAL ULTRASOUND HISTORY: anthony COMPARISON: None available. TECHNIQUE: 2-D and color Doppler imaging of the kidney submitted. Technically difficult evaluation due to body habitus. Right kidney: 11.8 cm x 6.1 cm x 5.4 cm. Normal echogenicity with no hydronephrosis or mass. Left kidney: 13.1 cm x 6.9 cm x 5.1 cm. Normal echogenicity with no hydronephrosis or mass. Aorta: Poorly visualized. Urinary Bladder: Nondistended. US/US renal BI* [id number] IMPRESSION: 1. Technically difficult ultrasound evaluation of the kidneys due to body habi tus. 2. No hydronephrosis or mass identified. 3. Normal size kidneys.
[2022-05-27] MEDS: dextrose 5%-sod chloride 0.9% 1,000 ML 125 ML IV (11:18)
[2022-05-27] MEDS: octreotide 500 MCG in sodium chloride 0.9% (100 ml) 100 ML 10.1 MCG IV (11:21)
[2022-05-27] MEDS: lidocaine 1% 5 ML in potassium chloride premix 100 ML 25 ML IV (11:34)
[2022-05-27 11:40] LABS: Cholesterol 114 mg/dL (0-200); HDL Cholesterol 12 mg/dL (60-100); LDL Cholesterol Calculated 66 mg/dL (50-129); Thyroid Stimulating Hormone 2.52 uIU/mL (0.27-4.20); Triglycerides 182 mg/dL (0-150); Uric Acid 5.4 mg/dL (3.4-7.0)
[2022-05-27 11:41] LABS: Acetaminophen < 5.0 ug/mL (10-30); Alcohol Level < 10 mg/dL (0-10); Salicylate < 0.3 mg/dL (3-10)
[2022-05-27 11:54] LABS: Hepatitis A Antibody IgM Non-Reactive (Nonreactive); Hepatitis B Core IgM Non-Reactive (Nonreactive); Hepatitis B Surface Antigen Non-Reactive (Nonreactive); Hepatitis C Virus Antibody Non-Reactive (Nonreactive)
[2022-05-27 11:58] LABS: Thyroid Stimulating Hormone 2.56 uIU/mL (0.27-4.20)
[2022-05-27 12:02] LABS: Estmated Average Glucose 71; Hemoglobin A1C 4.1 % (4.0-6.0)
--- NOTE | 2022-05-27 12:09 | P.HP_ITS ---
Providers/Chief Complaint Admitting Physician: Fausto Simmons MD Primary Care Provider: Basilio Valladares MD Chief Complaint: vomiting History of Present Illness Grady Castillo is a 37 year old male with a past nuchal history of alcoholism, history of liver failure, liver cirrhosis, portal hypertension, who presents to [facility] due to poor appetite, increased confusion. Patient was assessed multiple times throughout the morning, initially he was assessed with mother at bedside, according to patient and mom, patient was recently at [facility] for acute liver failure, I was told that his liver failure was not severe enough to be considered to be placed on the liver transplant list, he was discharged home with lactulose and rifaximin. He is adamant that the last time he used alcohol was about 6 weeks ago, his mom tells me that there is family around him 25/05. Denies any IV drug use. He has been using Tylenol for his back pain, he had back surgery within the last few months. They tell me that since he got home he was doing well, but all of a sudden a few days ago he started to feel unwell, look more jaundiced, felt more nauseous, his appetite wa s decreasing, he was more confused according to his mother. His mom is a respiratory therapist, she knew the signs of liver failure so she wanted him to come to the hospital for evaluation. No fevers, no cough, no diarrhea, no abdominal pain, no dysuria, no lightheadedness, no dizziness, no seizures. She does tell me that his urination has decreased, his urine has been much more dark recently. In the emergency room he was found to have acute liver failure and there was arrangements to transfer him to a higher level center, family wanted him to be transferred to [facility], but they do not have beds at this time. They have made calls out to multiple hospitals and he is on the waiting list for [facility], [facility]. However there is no beds at this time, advised patient that his hemoglobin is 8.1, platelet count 125, his INR is 5.09, AST 114, ALT 58, ammonia level 85, albumin 2.4, sodium 133, total bilirubin 25.9. His meld score is 40, his 3- month mortality is over 70%, I was wood and honest with patient and his mother at bedside that I am not a forensic sergeant, nor are we a liver transplant center. He needs to be transferred to a tertiary level center, he needs to have a forensic sergeant, he needs to have a liver transplant evaluation. He has a high risk of morbidity and mortality, high risk of complications, high risk of . However I understand the severity of the situation, and I can do the best I can, but I do not have the specialist, nor am i a forensic sergeant or liver transplant specialist to optimally manage him here. As he is still awaiting a bed, it could be well over 24 hours before he can be transferred, I can admit him here to the ICU for close monitoring, medical management as best as I can in order to optimize him to be transferred. I was frankly honest with patient, there is a high risk of morbidity and mortality while he is here as I do not have the specialist nor the specialty to manage his acuity, but him and his mother want everything to be done, they want him to remain a full code. Underst anding then that I am not a specialist, nor forensic sergeant, nor a liver transplant specialist, nor do I have the specialty or specialty physicians to take care of patient here in the hospital. I will use his admission as a bridge to get him transferred to a higher level of center. Patient and mother voiced understanding, all questions answered, opportunity to answer questions, they voiced understanding, all questions answered, agreed to proceed with plan. I checked up on patient again at noon or so, he was able to get up to the side of the bed, he was able to use a bedside commode he is feeling a bit better, still visibly jaundiced, no scleral icterus, alert and oriented x3, I have also con sulted nephrology, currently receiving IV fluids, octreotide, antibiotics. I advised patient that I am doing the best I can to see if I can get him transferred, he voiced understanding, all questions answered, agreed to proceed. He denies any history of esophageal varices, no hemoptysis, no bloody or black stools, no fevers, does have a slight abdominal distention, slight abdominal pain, Review of Systems Const: Denies: fever(s) Eyes: Reports: yellow eyes Card: Denies: chest pain Resp: Denies: dyspnea GI: Reports: abdominal pain : Denies: flank pain or difficulty urinating Musc: Denies: extremity swelling Skin/Breast: Reports: jaundice Neuro: Reports: headache(s) and dizziness; Denies: numbness in extremities Psych: Reports: anxiety Medications/Allergies Home Medications Medication Instructions Recorded Confirmed Last Taken Type Bone Growth Stimulator E0748 #1 ea 11/25/21 05/26/22 Unknown Rx lactulose 20 gram/30 mL oral 20 g PO TID PRN 04/25/22 05/26/22 05/26/22 History solution omeprazole magnesium 20 mg 20 mg PO DAILY 04/25/22 05/26/22 05/26/22 History tablet,delayed release (Prilosec OTC) citalopram 40 mg tablet 40 mg PO DAILY #90 tab 05/14/22 05/26/22 05/26/22 Rx rifaximin 550 mg tablet (Xifaxan) 550 mg PO BID 05/14/22 05/26/22 05/26/22 History ondansetron HCl 4 mg tablet 4 mg PO Q8H PRN #90 tab 05/20/22 05/26/22 Unknown Rx melatonin 5 mg tablet 5 mg PO BEDTIME 05/26/22 05/26/22 05/25/22 History Allergies Allergy/AdvReac Type Severity Reaction Status Date / Time No Known Allergies Allergy Verified 05/26/22 16:57 PFSH Acute PFSH: Medical History (Updated 05/27/22 @ 12:23 by Fausto Simmons MD) Alcohol intoxication Major depression Suicidal ideation Ureterolithiasis Surgical History (Updated 05/27/22 @ 12:21 by Fausto Simmons MD) History of back surgery Family History (Updated 05/27/22 @ 12:21 by Fausto Simmons MD) Other CAD (coronary artery disease) Social History Smoking and tobacco status: never smoked Quit status (tobacco): considering quitting Second hand smoke exposure: No Alcohol intake: current Alcohol intake frequency: few times a week Marital status: Current occupational status: employed Current gender identity: Male Vitals/I&O/Wt Last Vital Signs Temp 97.8 F 05/27/22 10:50 Pulse 75 05/27/22 10:50 Resp 18 05/27/22 10:50 BP 120/80 05/27/22 10:50 Pulse Ox 98 07/26/22 09:26 05/26/22 05/27/22 05/27/22 22:59 06:59 14:59 Intake Total 1000 / 999 999 / 1999 Balance 1000 / 999 999 / 1999 Weight last 48 hrs Weight 80.286 kg Physical Exam Const: COMMON NORMALS: no acute distress and patient oriented x3 HENMT: COMMON NORMALS: normocephalic HEAD & SCALP: normocephalic Eye: COMMON NORMALS: Equal, round and reactive pupils present OTHER: Sclera icterus Neck/C-Spine: COMMON NORMALS: no JVD Resp: COMMON NORMALS: normal respiratory effort, No retractions, No use of accessory muscles and clear to auscultation bilaterally AUSCULTATION: clear to auscultation bilaterally Cardio: COMMON NORMALS: no JVD, regular rate, regular rhythm, S1 normal heart sound present and S2 normal heart sound present RATE: regular rate RHYTHM: regular rhythm HEART SOUNDS: S1 normal heart sound present and S2 normal heart sound present GI: COMMON NORMALS: Normal to inspection, nondistended, normoactive bowel sounds present, Soft to palpation, non-tender, no masses and no bruits PAL PATION: Yes Soft to palpation and No Tenderness to palpation present (GI) OTHER: Abdomen slightly distended, enlarged liver on examination Extremity: COMMON NORMALS: capillary refill normal, no clubbing, cyanosis or edema, no calf tenderness and no pedal edema Neuro: COMMON NORMALS: patient oriented x3, CN's II-XII intact bilaterally, moves all extremities and no focal motor deficits Psych: COMMON NORMALS: mental status grossly normal Skin: NARRATIVE SKIN EXAM: Jaundice during Data : 05/27/22 06:55 05/27/22 06:55 A&P Assessment and plan (1) Acute liver failure: Status: Acute (2) Liver cirrhosis: Status: Acute (3) Portal hypertension: Status: Acute (4) History of alcoholism: Status: Acute (5) Hepatorenal syndrome: Status: Acute (6) Elevated INR: Status: Acute (7) Hyperbilirubinemia: Status: Acute (8) Anemia: Status: Acute Plan Acute liver failure -Meld score 40, 70% mortality in the next 3 months -With history of alcoholism, no eat alcohol use in the last 6 weeks -HIV negative, acute hep panel negative, salicylates negative, acetaminophen negative, ethyl alcohol negative -Hemoglobin 8.1, Protonix, Carafate -INR 5.09 -Sodium 130 -Potassium 3.0 will replace -Creatinine 2.7, highly suspicious for hepatorenal syndrome, Place Stubbs catheter, monitor urine output, nephrology consulted, on octreotide -AST 114 -ALT 58 -Ammonia levels 85, rifaximin, lactulose, alert oriented x3 -Albumin 2.4 -T bili 25.9, receiving IV fluids -CT scan abdomen pelvis 1.? Development of a small amount of free fluid within the pelvis and soft tissue anasarca. 2. ? Mild hepatomegaly and hepatic steatosis with recanalized umbilical vein. Consistent with portal venous hypertension. 3.? Moderate submucosal edema within the RIGHT colon and to a lesser extent the transverse colon. This can be seen with cirrhosis and liver failure but also ischemic changes. 4.? Normal appendix. -Avoid narcotics, benzodiazepines for agitation such as Ativan -Elevated lipase -Awaiting transfer to tertiary level [place] -On the waiting list for [facility], [place], [place] -Full code -Protonix for GI prophylaxis -SCDs for DVT prophylaxis, anticoagulation contraindicated given anemia, acute liver failure -Needs evaluation at tertiary level center, needs hepatology -Prognosis is guarded, statuses stable Attestations Medical Necessity Statement*: Patient requires hospitalization, inpatient, greater than 2 midnights, for acute liver failure, awaiting transfer to tertiary level center, critical care time spent over 1 hour Coding Level of Care Code Acute Mid Level Business Analyst for [facility] Diagnoses Acute liver failure K72.00 Liver cirrhosis K74.60 Portal hypertension K76.6 History of alcoholism F10.21 Hepatorenal syndrome K76.7 Elevated INR R79.1 Hyperbilirubinemia E80.6 Anemia D64.9
[2022-05-27 12:13] LABS: Gamma Glutamyl Transferase 61 U/L (8-61)
[2022-05-27 12:24] LABS: HIV 1 & 2 Antibody Non-Reactive (Non-Reactiv); HIV 1 & 2 Antigen Non-Reactive (Non-Reactiv)
--- NOTE | 2022-05-27 12:51 | DCPLANNER ---
manager financial systems was asked to help with transfer of patient. manager financial systems called [facility], spoke with Nicole. manager financial systems faxed patients information to [facility]. Nicole from the facility called pillowcase maker and stated that they could not accept patient at this time.
--- NOTE | 2022-05-27 12:55 | ECG_ITS ---
[facility] Test Date: 2022-05-27 Pat Name: Grady Castillo Department: Room: [facility] Gender: Male Fan Installer: : 1985 Requested By: Fausto Simmons Order Number: [id number] Lety MD: Pearl Callahan M.D. Measurements Intervals [place] Rate: 80 P: 30 MN: 160 QRS: 56 QRSD: 112 T: -15 QT: 431 QTc: 500 Interpretive Statements SINUS RHYTHM MODERATE INTRAVENTRICULAR CONDUCTION DELAY [110+ ms QRS DURATION] NONSPECIFIC T-WAVE ABNORMALITY PROLONGED QT INTERVAL Compared to ECG 04/30/2022 12:39:40 Intraventricular conduction delay now present T-wave abnormality now present Prolonged QT interval now present Sinus tachycardia no longer present Electronically Signed On 05-27-2022 21:32:29 CDT by Pearl Callahan M.D. [id number]
[2022-05-27] MEDS: pantoprazole 40 mg SDV IVP (12:59)
[2022-05-27] MEDS: phytonadione (ADULT) 10 mg/mL Ampule 1 mL SUBCUT (13:00)
[2022-05-27] MEDS: piperacillin-tazobactam 3.375 GM in sodium chloride 0.9% (plus) 50 ML IV ×2 (13:01→18:10)
[2022-05-27 13:21] LABS: Amphetamines Screen Urine Negative (Negative); Barbiturates Screen Urine Negative (Negative); Benzodiazepines Screen Urine Positive (Negative); Cocaine Screen Urine Negative (Negative); Opiate Screen Urine Negative (Negative); PCP Screen Urine Negative (Negative); THC Screen Urine Positive (Negative); Urine Appearance Cloudy (CLEAR); Urine Color Amber (Yellow)
[2022-05-27 13:22] LABS: Bilirubin Urine 3+ (Negative); Blood Urine 3+ (Negative); Glucose Urine UA Norm (Normal); Ketones Urine Negative (Negative); Leukocyte Esterase Urine Trace (Negative); Nitrate Urine Negative (Negative); Protein Urine Trace (Negative); Specific Gravity, Urine 1.015 (1.005-1.030); Urobilinogen Urine 4 mg/dL (Negative); pH Urine 5 (5-7)
[2022-05-27 13:25] LABS: Potassium, Radom Urine 24 mmol/L; Urine Creatinine 162 mg/dL (39-259)
[2022-05-27 13:26] LABS: Urine Protein Random 63 mg/dL; Urine Random Chloride 13 mmol/L; Urine Random Sodium < 10 mmol/L
[2022-05-27 13:28] LABS: SARS Covid-2 Antigen Negative (Negative)
[2022-05-27] MEDS: sucralfate 1 gm Tablet PO ×2 (13:28→17:05)
[2022-05-27 13:33] LABS: Bacteria Urine 1+ /hpf; Mucus Urine 1+ /hpf; RBC Urine 0-4 /hpf (0-2); Squamous Epithelial Cell Urine 0-4 /hpf (0-5)
[2022-05-27 13:36] LABS: Amorphous Sediment Urine 1+ /hpf
[2022-05-27 13:37] LABS: Add Urine Culture? No
[2022-05-27 13:45] LABS: Troponin(5th) Baseline 10 ng/L (0-15)
[2022-05-27] MEDS: vancomycin 1,000 MG in sodium chloride 0.9% 250 ML 250 MG IV (14:53)
--- NOTE | 2022-05-27 14:55 | ECG_ITS ---
[facility] Test Date: 2022-05-27 Pat Name: Grady Castillo Department: Room: [facility]05 Gender: Male Reporting Analyst: : 1985 Requested By: Fausto Simmons Order Number: [id number] Lety MD: Pearl Callahan M.D. Measurements Intervals [place] Rate: 79 P: 7 TX: 165 QRS: 56 QRSD: 108 T: -2 QT: 442 QTc: 507 Interpretive Statements SINUS RHYTHM NONSPECIFIC T-WAVE ABNORMALITY PROLONGED QT INTERVAL Compared to ECG 05/27/2022 15:02:36 Intraventricular conduction delay no longer present T-wave abnormality still present Electronically Signed On 05-27-2022 21:41:02 CDT by Pearl Callahan M.D. [id number]
[2022-05-27 15:46] LABS: Troponin 5 2HR 10.63 ng/L (0-15)
[2022-05-27] MEDS: midodrine 5 mg TABLET PO (16:18)
[2022-05-27 16:28] LABS: Troponin 5 2HR Delta -6.5 ABS# (0-10)
--- NOTE | 2022-05-27 18:55 | ECG_ITS ---
[facility] Test Date: 2022-05-27 Pat Name: Grady Castillo Department: Room: [facility]05 Gender: Male Financial Institution Treasurer: : 1985 Requested By: Fausto Simmons Order Number: [id number] Lety MD: Neo Rodriguez M.D. Measurements Intervals [place] Rate: 78 P: 24 CT: 160 QRS: 64 QRSD: 117 T: 8 QT: 447 QTc: 510 Interpretive Statements SINUS RHYTHM MODERATE INTRAVENTRICULAR CONDUCTION DELAY [105+ ms QRS DURATION, 80+ ms Q/S IN V1/V2, NO Q AND 60+ ms R IN I/aVL/V5/V6] NONSPECIFIC T-WAVE ABNORMALITY PROLONGED QT INTERVAL Compared to ECG 05/27/2022 17:26:01 Intraventricular conduction delay now present T-wave abnormality still present Electronically Signed On 05-28-2022 16:31:54 CDT by Noe Rodriguez M.D. [id number]
[2022-05-27 19:48] LABS: Troponin 5 6HR 11.69 ng/L (0-15)
[2022-05-27 20:17] LABS: Troponin 5 6HR Delta 1.69 ng/L (0-12)
[2022-05-27] MEDS: ondansetron 2 mg/ML SDV 2 mL 4 MG IVP (20:55)
--- NOTE | 2022-05-27 22:45 | PC.NURSE ---
Updated Marissa at [facility] Bed Control regarding new dx of GI Bleed per Dr. Machado. Marissa stated that he is on their wait list but there are currently no beds available. Also included primary and secondary dx per request.
--- NOTE | 2022-05-27 22:51 | PC.NURSE ---
Patient had episode of vomiting at 2100 with scant blood noted in vomitus, this was preceded by small episode of vomiting. Patient given Zofran for Nausea. Notified Dr. Machado who presented to bedside for assessment. Patient had subsequent episode of vomiting with scant blood noted in vomitus.
[2022-05-27] MEDS: lactated ringers 1,000 ML 75 ML IV (23:48)
[2022-05-28] VITALS (59 sets, daily range): BP systolic 113–135; BP diastolic 56–73; PULSE 72–86; RESP 14–23; TEMP 36.2–36.9; O2SAT 90–100
[2022-05-28 02:06] LABS: Basophils # 0.2 10^3/uL (0.0-0.1); Basophils % 1.1 %; Eosinophils # 0.5 10^3/uL (0.0-0.8); Eosinophils % 3.4 %; Hematocrit 22.5 % (42.0-52.0); Hemoglobin 7.7 g/dL (11.7-16.6); Lymphocytes # 1.1 10^3/uL (0.8-4.8); Lymphocytes % 7.5 %; Mean Corpuscular HGB Conc 34.2 g/dL (30.0-36.0); Mean Corpuscular Hemoglobin 34.1 pg (28.0-34.0); Mean Corpuscular Volume 99.6 fl (80-94); Monocytes # 1.8 10^3/uL (0.2-0.9); Monocytes % 11.9 %; Neutrophils # 11.24 10^3/uL (1.8-7.7); Neutrophils % 75.5 %; Nucleated Red Blood Cells % 0 %; Platelet Count 125 10^3/cmm (130-400); Red Blood Count 2.26 10^6/uL (4.1-5.3); Red Cell Distribution Width 15.9 % (12.1-15.1); White Blood Count 14.9 10^3/uL (4.0-10.0)
[2022-05-28 02:17] LABS: INR 3.79 (0.8-1.2)
[2022-05-28 02:26] LABS: Lactate (Lactic Acid level) 0.8 mmol/L (0.5-2.2)
[2022-05-28 02:29] LABS: Alanine Aminotransferase 59 U/L (0-41); Albumin Level 2.7 g/dL (3.5-5.2); Alkaline Phosphatase 87 IU/L (40-130); Anion Gap 15.6 (5-19); Aspartate Amino Transferase 131 U/L (0-40); Blood Urea Nitrogen 29 mg/dL (6-20); C Reactive Protein 26.2 mg/L (0.0-4.9); Calcium 8.9 mg/dL (8.5-10.5); Carbon Dioxide 14 mmol/L (22-29); Chloride 109 mmol/L (98-107); Globulin 3.5 g/dL (1.3-4.6); Glucose 119 mg/dL (65-115); Magnesium 1.7 mg/dL (1.7-2.3); Osmolality Calculated 287 mOsm/kg (285-295); Phosphorus 3.2 mg/dL (2.5-4.5); Potassium 3.6 mmol/L (3.5-5.1); Sodium 135 mmol/L (136-145); Total Protein 6.2 g/dL (6.6-8.7)
[2022-05-28] MEDS: piperacillin-tazobactam 3.375 GM in sodium chloride 0.9% (plus) 50 ML IV ×2 (02:31→11:45)
[2022-05-28 02:33] LABS: Ammonia 110 umol/L (16-60)
[2022-05-28 02:37] LABS: NT Pro B Type Natriuretic Pept 940 pg/mL (0-125); Procalcitonin 1.27 ng/mL (0-0.5)
[2022-05-28 02:40] LABS: Total Bilirubin 27.9 mg/dL (0.15-1.2)
[2022-05-28 02:47] LABS: Creatine Phosphokinase 25 U/L (39-308); Uric Acid 4.9 mg/dL (3.4-7.0)
[2022-05-28] MEDS: octreotide 500 MCG in sodium chloride 0.9% (100 ml) 100 ML 10.1 MCG IV ×2 (04:55→12:58)
--- NOTE | 2022-05-28 06:57 | P.PN_ITS ---
Subjective Subjective: abd pain, n/v/ w/ bloody vomitus. no sob. + weak. no cp or mckenna. + diarrhea Medications: Reviewed: Yes Medication Review Details: Current Medications Folic Acid (Folic Acid 1 Mg Tablet) 1 mg PO DAILY [facility] Albumin Human (Albumin) 25 gm in 100 mls @ 60 mls/hr IV Q8H [facility] Last Infusion: 05/28/22 04:56 Dose: Infused Octreotide Acetate 500 mcg/ (Sodium Chloride) 101 mls @ 10.1 mls/hr IV .Q10H [facility] Last Admin: 05/28/22 04:55 Dose: 50 mcg/hr, 10.1 mls/hr Lactated Ringer's (Lactated Ringers) 1,000 mls @ 75 mls/hr IV .[id number] [facility] Last Infusion: 05/28/22 00:31 Dose: 75 mls/hr Piperacillin Sod/Tazobactam (Sod 3.375 gm/ Sodium Chloride) 50 mls @ 12.5 mls/hr IV Q8H [facility] Last Infusion: 05/28/22 06:41 Dose: Infused Vancomycin HCl 1,000 mg/ (Sodium Chloride) 250 mls @ 250 mls/hr IV Q24H [facility]; Protocol Last Infusion: 05/27/22 16:00 Dose: Infused Pantoprazole Sodium 40 mg/ (Dextrose) 100 mls @ 20 mls/hr IV .Q5H [facility] Last Admin: 05/28/22 06:47 Dose: 8 mg/hr, 20 mls/hr Lactulose (Lactulose Oral Liq 20 Gm/30 Ml Udc) 20 gm PO TID [facility] Last Admin: 05/27/22 21:30 Dose: Not Given Lorazepam (Lorazepam 2 Mg/Ml Inj 1 Ml) 2 mg IM Q4H PRN; Protocol PRN Reason: ALCOWD Metoclopramide HCl (Metoclopramide 5 Mg/Ml Sdv 2 Ml) 5 mg IVP Q6H PRN PRN Reason: NAUSEA AND VOMITING Midodrine (Midodrine 5 Mg Tablet) 5 mg PO TID [facility] Last Admin: 05/27/22 21:30 Dose: Not Given Multivitamins Therapeutic (Multivitamin Therapeutic Tablet) 1 tab PO DAILY [facility] Naloxone HCl (Naloxone 0.4 Mg/Ml Sdv) 0.1 mg IVP Q2M PRN PRN Reason: OPIATERV Ondansetron HCl (Ondansetron 2 Mg/Ml Sdv 2 Ml) 4 mg IVP Q6H PRN PRN Reason: NAUSEA AND VOMITING Last Admin: 05/27/22 20:55 Dose: 4 mg Rifaximin (Rifaximin 550 Mg Tablet) 550 mg PO BID [facility]; Protocol Last Admin: 05/27/22 17:05 Dose: 550 mg Sucralfate (Sucralfate 1 Gm Tablet) 1 gm PO AC&BEDTIME [facility] Last Admin: 05/27/22 21:30 Dose: Not Given Thiamine Mononitrate (Thiamine 100 Mg Tablet) 100 mg PO DAILY [facility] Vitals/I&O/Wt Last Vital Signs Temp 97.2 F L 05/28/22 04:00 Pulse 75 05/28/22 06:45 Resp 17 05/28/22 06:45 BP 122/61 05/28/22 06:45 Pulse Ox 95 05/28/22 06:45 O2 Del Method 05/26/22 15:27 05/27/22 05/27/22 05/28/22 14:59 22:59 06:59 Intake Total 591 / 591 785.666 / 1376.666 Output Total 325 / 325 Balance 591 / 591 460.666 / 1051.666 Weight last 48 hrs Weight 80.286 kg Physical Exam Narrative: icteric in chair, NARD vss +UOP heent- nc/at, icteric neck supple lungs clear heart reg abd soft- soft, nt, min ascites ext - no edema neuro- a,a, o x 2+ Urinary Catheter Management: Stubbs: Cath Placed During This Visit: yes Reason for Continuing Indwelling Catheter: Accurate Measurement of Urinary Output in Critically Ill Patients Urinary Catheter Date of Insertion: 05/27/22 Urinary Catheter Time of Insertion: 11:00 Data : 05/28/22 01:40 05/28/22 01:40 Micro: Microbiology 05/27/22 13:24 Blood Culture - Preliminary Blood SPECIMEN COLLECTED 05/27/22 13:34 Blood Culture - Preliminary Blood SPECIMEN COLLECTED A&P Assessment and plan (1) SALAS (acute kidney injury): 37 yr old man w/ cirrhosis- elevated bili and SALAS 1. Acute liver failure per Dr Iris hernandez remains 28 2. SALAS- D dx is HRS, prerenla, AIN vs others l-u/a 1+ prot, 2+ blood, 3+ bili, 5-10 wbc and rbc, 10-15 coarse granular casts -low ur na c/w prerenal azotemia or HRS -await urine cr and pr -check ck -check renal us -cr stable -continue octreotide and albumin -hold ivf - bp stable 3. hyponatremia- likely prerenal and from cirrhosis and salas -improving -check urine lytes -check tsh 4. hypokalemia- gi losses and diuretics -k improving 5. met acidosis of salas -monitor 6 . leukocytosis- wbc improved from 17.8 to 14.9 -monitor vanco tro 7. anemia -likely from liver disease 8. mild thrombocytopenia -likely from liver disease 9. inr improved from 5.1- 3.8 -liver disease 10. ammonia 110 -lactulose and rifampin meds reviewed -agree w/ evaluation for transfer to liver center seen and examined w/ RN- telehealth visit discussed w/ pt time spent 30 min Status: Acute Plan see above Attestations Medical Necessity Statement*: salas, liver failure Time Spent in Patient Care: 16 - 35 minutes Coding Level of Care Code Acute Marketing Sales Consultant for [facility] Diagnoses SALAS (acute kidney injury) N17.9
[2022-05-28] MEDS: sucralfate 1 gm Tablet PO ×3 (08:00→14:06)
[2022-05-28 08:46] LABS: Vancomycin Trough 10.8 ug/mL (10-15)
[2022-05-28] MEDS: folic acid 1 mg Tablet PO (08:49)
[2022-05-28] MEDS: ondansetron 2 mg/ML SDV 2 mL 4 MG IVP ×2 (08:49→14:35)
[2022-05-28] MEDS: lactulose oral liq 20 gm/30 mL UDC PO (08:49)
[2022-05-28] MEDS: thiamine 100 mg Tablet PO (08:49)
[2022-05-28] MEDS: phytonadione (ADULT) 10 mg/mL Ampule 1 mL SUBCUT ×2 (08:49→14:32)
[2022-05-28] MEDS: multivitamin therapeutic Tablet 1 TAB PO (08:49)
[2022-05-28] MEDS: midodrine 5 mg TABLET PO ×2 (08:49→17:18)
--- NOTE | 2022-05-28 10:19 | PC.CHAP ---
Pastoral Care Encounter/Spiritual Assessment Type of Contact [] Declined event planning manager visit [] Patient/Family/Request visit [] Outpatient visit [] Follow-up visit [] Physician referral [] Code/Alert [x] Routine visit [] Staff referral [] Actively dying [] Patient sleeping [] Family support [] [] Out of room [] Palliative care [] [x] Receiving care in room [] Pre-surgical visit [] Trauma [] Long length of stay [x] ICU visit [] Other: Relational/Emotional Strength [] Patient feels connected with others/family/visitors/staff [] Distress [] Loneliness/isolation [] Abandonment Spirituality of Patient [] Person of Renata [] Attends Yarsanism of their Renata [] Believes in Prayer [] Reads Bible or Buddhist materials [] There are Spiritual issues to be addressed Lime Boiler Interventions [x] Prayer [] Active listening [] Non-anxious presence [] Spiritual/emotional support [] Crisis/trauma care [] Spiritual counseling [] Bereavement support [] Provided bereavement packet [] Provided Bible/devotional materials [] Provided toy/stuffed animal, coloring book to patient or family member [] Provided Communion [] Anointing/[place] [] Salvation [x] Completed spiritual assessment [] Other: Impact on Illness or Injury [] Angry [] Fearful [] Anxious [] Often cries [] Exhaustion [] Unable to work [] Unable to attend bahai [] Unable to walk/stand [] Unable to read [] Unable to drive [] Unable to eat/drink [] Unable to sleep [] Unable to be with family [] Patient intubated [] Other: Summary Time spent with patient
--- NOTE | 2022-05-28 10:30 | PC.NURSE ---
upon morning assessment, patient was a little lethargic, but easily rousable and alert to person, plac,e time, and situation. At the itme of this note, he is much more lethargic, difficult to rouse, and mumbles in response to questions. Has trouble waking. Nurse alerted Dr de to mental status change. No accompanying vital sign changes. Dr de advised to give lactulose, nurse advised this has already been done. No new orders at this time.
[2022-05-28 11:07] LABS: Urine Creatinine 137 mg/dL (39-259)
[2022-05-28 11:08] LABS: Urine Protein Random 73 mg/dL
[2022-05-28] MEDS: metoclopramide 5 mg/mL SDV 2 mL IVP (12:10)
[2022-05-28 12:54] LABS: Basophils # 0.2 10^3/uL (0.0-0.1); Basophils % 0.9 %; Eosinophils # 0.7 10^3/uL (0.0-0.8); Eosinophils % 3.9 %; Hemoglobin 7.1 g/dL (11.7-16.6); Mean Corpuscular HGB Conc 33.8 g/dL (30.0-36.0); Mean Corpuscular Hemoglobin 34.3 pg (28.0-34.0); Mean Corpuscular Volume 101.4 fl (80-94); Mean Platelet Volume 10.1 fL (7.4-10.4); Neutrophils # 12.78 10^3/uL (1.8-7.7); Neutrophils % 76.6 %; Nucleated Red Blood Cells % 0 %; Platelet Count 125 10^3/cmm (130-400); Red Blood Count 2.07 10^6/uL (4.1-5.3); Red Cell Distribution Width 15.7 % (12.1-15.1); White Blood Count 16.7 10^3/uL (4.0-10.0)
[2022-05-28 13:28] LABS: 25 Hydroxy Vitamin D 18 ng/mL (30-100)
[2022-05-28 13:37] LABS: Quest SARS-CoV-2 RNA NOT DETECTED (NOT DETECTED)
[2022-05-28 13:42] LABS: Ferritin 1269 ng/mL (30-400)
[2022-05-28 13:52] LABS: INR 2.57 (0.8-1.2)
[2022-05-28] MEDS: dextrose 5%-sod chloride 0.9% 1,000 ML 75 ML IV (14:09)
[2022-05-28] MEDS: vancomycin 1,000 MG in sodium chloride 0.9% 250 ML 250 MG IV (14:10)
[2022-05-28] MEDS: lactulose oral liq 20 gm/30 mL UDC 30 GM PO (14:38)
[2022-05-28] MEDS: magnesium sulfate premix 4 GM/100 ML PREMIX IV (15:13)
--- NOTE | 2022-05-28 15:40 | P.PN_ITS ---
Subjective Subjective: Patient was seen this morning, overnight he had episodes of blood- tinged vomit, no hemodynamic compromise, his ammonia levels are higher than 110, but remains alert and oriented x3, he was examined multiple times throughout the morning, family members at bedside -Remains to not have any hemodynamic compromise, no bloody vomit since the morning, his hemoglobin has decreased to 7.1, given 1 unit PRBC, -His INR is 2.57, status post vitamin K FFP this morning -I advised him that I feel that likely his bleeding is from his coagulopathy, however given his alcoholism, has never had an EGD, there is a possibility that it could be an esophageal variceal bleed, which carries 100% mortality rate -I advised him that I had called -[facility] this morning, they are full -[facility] in [place] therefore -[facility], I spoke to Dr. Óscar Dawn, he is on the waiting list, -[facility] they have not gotten back to me, but is on the waiting list -[facility] in [place] is full -[facility] is full -For EGD capabilities I also called [facility] in [place] for follow -[facility] [place] [facility], -[facility] this [facility] -I did speak to [facility] the hospitalist has accepted, they do not have transplant Ability, they do not have hepatology but they do have GI, did capability to perform EGD and band ligation if needed -I advised that we could do an EGD here however we do not have band ligation possibility, there is a risk of esophageal variceal bleeding, but if he has a source of upper GI bleed such as a gastric ulcer we could manage that here -He is agreeable to go to [facility] if accepted -I was clear with patient that going to [facility] or any other hospital does not guarantee a liver -Every transplant facility has their own requirements, and their own rules -One of the significant ones that I have run into is a lot of them have requirements of how long sobriety he has had, a lot of them require many months such as 6 months of sobriety -He is young however its only been 6 weeks since his last alcohol drink in different transplant facilities have different requirements, such as [facility] had advised me that they typically require 6 months of no alcohol consumption before they would consider the a transplant evaluation, then he would have to be put on the transplant list. I also spoke to [facility] their transplant department, they also told me the same, they spoke to their transplant physician Dr. Mendoza in addition he told me that they are giving preference to in-state residence and, they were currently full Vitals/I&O/Wt Last Vital Signs Temp 97.8 F 05/28/22 12:15 Pulse 78 05/28/22 12:15 Resp 17 05/28/22 12:15 BP 135/73 05/28/22 12:15 Pulse Ox 100 05/28/22 12:15 O2 Del Method 05/28/22 12:15 05/28/22 05/28/22 05/28/22 06:59 14:59 22:59 Intake Total 785.666 / 1376.666 849.305 / 849.305 Output Total 325 / 325 Balance 460.666 / 1051.666 849.305 / 849.305 Weight last 48 hrs Weight 83.007 kg Physical Exam Const: COMMON NORMALS: no acute distress OTHER: Jaundiced urine, scleral icterus, alert oriented x3 Resp: COMMON NORMALS: normal respiratory effort, No retractions, No use of accessory muscles and clear to auscultation bilaterally AUSCULTATION: clear to auscultation bilaterally Cardio: COMMON NORMALS: regular rate, regular rhythm, S1 normal heart sound present and S2 normal heart sound present RATE: regular rate RHYTHM: regular rhythm HEART SOUNDS: S1 normal heart sound present and S2 normal heart sound present GI: COMMON NORMALS: Normal to inspection, nondistended, normoactive bowel sounds present and non-tender Extremity: COMMON NORMALS: no pedal edema Urinary Catheter Management: Stubbs: Cath Placed During This Visit: yes Reason for Continuing Indwelling Catheter: Accurate Measurement of Urinary Output in Critically Ill Patients Urinary Catheter Date of Insertion: 05/27/22 Urinary Catheter Time of Insertion: 11:00 Data : 05/28/22 12:31 05/28/22 01:40 Micro: Microbiology 05/27/22 13:34 Blood Culture - Preliminary Blood NEGATIVE TO DATE 05/27/22 13:24 Blood Culture - Preliminary Blood NEGATIVE TO DATE A&P Assessment and plan (1) Acute liver failure: Status: Acute (2) Liver cirrhosis: Status: Acute (3) Portal hypertension: Status: Acute (4) History of alcoholism: Status: Acute (5) Hepatorenal syndrome: Status: Acute (6) Elevated INR: Status: Acute (7) Hyperbilirubinemia: Status: Acute (8) Anemia: Status: Acute Plan Acute on chronic decompensated alcoholic liver failure, liver cirrhosis -Meld score 40, 70% mortality in the next 3 months -With history of alcoholism, no eat alcohol use in the last 6 weeks -HIV negative, acute hep panel negative, salicylates negative, acetaminophen negative, ethyl alcohol negative -Hemoglobin 7.1, with minimal hematemesis, Protonix drip, octreotide drip -Will be n.p.o., and plans for EGD tomorrow morning here if patient is agreeable versus transfer to [facility], awaiting a call from home theater specialist -INR 2.57, status post vitamin K, FFP, given concerns for coagulopathy and bleed related to quality -Sodium 135 -Potassium 3.7, willreplace -Magnesium 1.7 -Creatinine 2.5, highly suspicious for hepatorenal syndrome, Place Stubbs catheter, monitor urine output, nephrology consulted, on octreotide -AST 114 -ALT 58 -Ammonia levels 101, alert oriented x3, continue rifaximin, increase lactulose -Albumin 2.4 -T bili 27.9, receiving IV fluids -CT scan abdomen pelvis 1.? Development of a small amount of free fluid within the pelvis and soft tissue anasarca. 2. ? Mild hepatomegaly and hepatic steatosis with recanalized umbilical vein. Consistent with portal venous hypertension. 3.? Moderate submucosal edema within the RIGHT colon and to a lesser extent the transverse colon. This can be seen with cirrhosis and liver failure but also ischemic changes. 4.? Normal appendix. -Avoid narcotics, benzodiazepines for agitation such as Ativan -Elevated lipase -Awaiting transfer to tertiary level center -On the waiting list for [facility], [facility], family wants to try [facility] -Full code -Protonix for GI prophylaxis -SCDs for DVT prophylaxis, anticoagulation contraindicated given anemia, acute liver failure -Needs evaluation at tertiary level center, needs hepatology -Prognosis is guarded, statuses stable Attestations Medical Necessity Statement*: Patient requires hospitalization for acute on chronic decompensated liver failure, with acute anemia, requiring transfusion, requiring EGD, requiring possible transfer Coding Level of Care Code Acute Mrp Controller for [facility] Fwd Diagnoses Acute liver failure K72.00 Liver cirrhosis K74.60 Portal hypertension K76.6 History of alcoholism F10.21 Hepatorenal syndrome K76.7 Elevated INR R79.1 Hyperbilirubinemia E80.6 Anemia D64.9
--- NOTE | 2022-05-28 16:42 | PM.TDS ---
Transfer Summary Providers Date of Admission: 05/27/22 10:50 Date of Discharge/Transfer: 05/28/22 Attending Provider at Admission: Fausto Simmons MD Attending Provider at Transfer: Fausto Simmons MD Primary Care Provider: Basilio Valladares MD Transfer Plans: Anticipated date of transfer: 05/28/22. Diagnoses at Discharge Discharge Diagnosis (1) Acute liver failure: Status: Acute (2) Liver cirrhosis: Status: Acute (3) Portal hypertension: Status: Acute (4) History of alcoholism: Status: Acute (5) Hepatorenal syndrome: Status: Acute (6) Elevated INR: Status: Acute (7) Hyperbilirubinemia: Status: Acute (8) Anemia: Status: Acute Reason for Visit Reason for Visit vomiting Hospital Course Hospital Course Grady Castillo is a 37 year old male with a past nuchal history of alcoholism, history of liver failure, liver cirrhosis, portal hypertension, who presents to [facility] due to poor appetite, increased confusion.? Patient was assessed multiple times throughout the morning, initially he was assessed with mother at bedside, according to patient and mom, patient was recently at [facility] for acute liver failure, I was told that his liver failure was not severe enough to be considered to be placed on the liver transplant list, he was discharged home with lactulose and rifaximin.? He is adamant that the last time he used alcohol was about 6 weeks ago, his mom tells me that there is family around him 25/05.? Denies any IV drug use.? He has been using Tylenol for his back pain, he had back surgery within the last few months.? They tell me that since he got home he was doing well, but all of a sudden a few days ago he started to feel unwell, look more jaundiced, felt more nauseous, his appetite was decreasing, he was more confused according to his mother.? His mom is a respiratory therapist, she knew the signs of liver failure so she wanted him to come to the hospital for evaluation. Acute on chronic decompensated alcoholic liver failure, liver cirrhosis -Meld score 40, 70% mortality in the next 3 months -With history of alcoholism, noalcohol use in the last 6 weeks -HIV negative, acute hep panel negative, salicylates negative, acetaminophen negative, ethyl alcohol negative -Hemoglobin 7.1, receiving 1Units PRBC, with minimal hematemesis, Protonix drip, octreotide drip, needs EGD evaluation, possible esophageal variceal band ligation -Will be n.p.o. midnight, and plans for EGD tomorrow morning at tertiary level facility -INR 2.57, status post vitamin K, FFP, given concerns for coagulopathy and bleed we will give another dose of FFP vitamin K -Sodium 135 -Potassium 3.7, will replace -Magnesium 1.7, will replace -Creatinine 2.5, highly suspicious for hepatorenal syndrome, Place Stubbs catheter, monitor urine output, nephrology consulted, on octreotide -AST 114 -ALT 58 -Ammonia levels 101, alert oriented x3, continue rifaximin, increase lactulose -Albumin 2.4 -T bili 27.9, receiving IV fluids -CT scan abdomen pelvis 1.? Development of a small amount of free fluid within the pelvis and soft tissue anasarca. 2. ? Mild hepatomegaly and hepatic steatosis with recanalized umbilical vein. Consistent with portal venous hypertension. 3.? Moderate submucosal edema within the RIGHT colon and to a lesser extent the transverse colon. This can be seen with cirrhosis and liver failure but also ischemic changes. 4.? Normal appendix. -Avoid narcotics, benzodiazepines for agitation such as Ativan -Elevated lipase -Currently on broad-spectrum antibiotic therapy, vancomycin, Zosyn, so far cultures negative -Awaiting transfer to tertiary level center -Patient was accepted to [facility],, discussed risk and benefits, he voiced understanding, all questions answered, agreed to proceed, sister present, agreed to proceed, -Full code -Protonix for GI prophylaxis -SCDs for DVT prophylaxis, anticoagulation contraindicated given anemia, acute liver failure -Needs evaluation at tertiary level center, needs hepatology -Prognosis is guarded, statuses stable ?? Physical Exam Const: COMMON NORMALS: no acute distress and patient oriented x3 Resp: COMMON NORMALS: normal respiratory effort, No retractions, No use of accessory muscles and clear to auscultation bilaterally AUSCULTATION: clear to auscultation bilaterally Cardio: COMMON NORMALS: regular rate, regular rhythm, S1 normal heart sound present and S2 normal heart sound present RATE: regular rate RHYTHM: regular rhythm HEART SOUNDS: S1 normal heart sound present and S2 normal heart sound present GI: COMMON NORMALS: Normal to inspection, nondistended, normoactive bowel sounds present and non-tender Extremity: COMMON NORMALS: no pedal edema Neuro: COMMON NORMALS: patient oriented x3 Urinary Catheter Management: Stubbs: Cath Placed During This Visit: yes Reason for Continuing Indwelling Catheter: Accurate Measurement of Urinary Output in Critically Ill Patients Urinary Catheter Date of Insertion: 05/27/22 Urinary Catheter Time of Insertion: 11:00 TS Data Studies Completed and Pending Pending at discharge Category Date Time Status Ammonia AM LABS Lab 05/29/22 04:00 Ordered Ammonia AM LABS Lab 05/30/22 04:00 Ordered Blood Culture Stat Lab 05/27/22 13:24 Results C Reactive Protein AM LABS Lab 05/29/22 04:00 Ordered C Reactive Protein AM LABS Lab 05/30/22 04:00 Ordered CBC Auto Diff [Complete Blood Count w/Auto] Q6H Lab 05/28/22 18:00 Ordered CBC Auto Diff [Complete Blood Count w/Auto] Q6H Lab 05/29/22 00:00 Ordered Complete Blood Count w/Auto AM LABS Lab 05/29/22 04:00 Ordered Complete Blood Count w/Auto AM LABS Lab 05/29/22 04:00 Ordered Complete Blood Count w/Auto AM LABS Lab 05/30/22 04:00 Ordered Complete Blood Count w/Auto AM LABS Lab 05/30/22 04:00 Ordered Complete Crossmatch Stat Lab 05/28/22 13:27 Results Comprehensive Metabolic Panel AM LABS Lab 05/29/22 04:00 Ordered Comprehensive Metabolic Panel AM LABS Lab 05/29/22 04:00 Ordered Comprehensive Metabolic Panel AM LABS Lab 05/30/22 04:00 Ordered Comprehensive Metabolic Panel AM LABS Lab 05/30/22 04:00 Ordered Creatine Phosphokinase AM LABS Lab 05/29/22 04:00 Ordered Creatine Phosphokinase AM LABS Lab 05/30/22 04:00 Ordered FFP [Frozen Plasma FZ <24 1st Cont] Routine Lab 05/28/22 13:27 Results Ferritin AM LABS Lab 05/29/22 04:00 Ordered Ferritin AM LABS Lab 05/30/22 04:00 Ordered Lactate (Lactic Acid level) AM LABS Lab 05/29/22 04:00 Ordered Lactate (Lactic Acid level) AM LABS Lab 05/30/22 04:00 Ordered Leukocyte Reduced RBC Stat Lab 05/28/22 13:27 Results MRSA by PCR Stat Lab 05/27/22 12:58 Ordered Magnesium AM LABS Lab 05/29/22 04:00 Ordered Magnesium AM LABS Lab 05/29/22 04:00 Ordered Magnesium AM LABS Lab 05/30/22 04:00 Ordered Magnesium AM LABS Lab 05/30/22 04:00 Ordered NT Pro B Type Natriuretic Pept QAM Lab 05/29/22 06:00 Ordered NT Pro B Type Natriuretic Pept QAM Lab 05/30/22 06:00 Ordered Phosphorus AM LABS Lab 05/29/22 04:00 Ordered Phosphorus AM LABS Lab 05/29/22 04:00 Ordered Phosphorus AM LABS Lab 05/30/22 04:00 Ordered Phosphorus AM LABS Lab 05/30/22 04:00 Ordered Procalcitonin AM LABS Lab 05/29/22 04:00 Ordered Procalcitonin AM LABS Lab 05/30/22 04:00 Ordered Prothrombin Time INR AM LABS Lab 05/29/22 04:00 Ordered Prothrombin Time INR AM LABS Lab 05/30/22 04:00 Ordered Prothrombin Time INR Stat Lab 05/28/22 18:00 Ordered Sputum Culture and Gram Stain Stat Lab 05/27/22 12:58 Uncollected TSH [Thyroid Stimulating Hormone] AM LABS Lab 05/29/22 04:00 Ordered Type and Screen Stat Lab 05/28/22 13:27 Results Uric Acid AM LABS Lab 05/29/22 04:00 Ordered Uric Acid AM LABS Lab 05/30/22 04:00 Ordered Vancomycin Trough AM LABS Lab 05/29/22 04:00 Ordered Labs from last 24 hours 05/28/22 05/28/22 05/28/22 13:27 13:27 12:31 WBC 16.7 H RBC 2.07 L Hgb 7.1 L Hct 21.0 L MCV 101.4 H MCH 34.3 H MCHC 33.8 RDW 15.7 H Plt Count 125 L MPV 10.1 Neut % (Auto) 76.6 Lymph % (Auto) 6.0 [place] % (Auto) 12.0 Eos % (Auto) 3.9 Baso % (Auto) 0.9 Neut # (Auto) 12.78 H Lymph # (Auto) 1.0 [place] # (Auto) 2.0 H Eos # (Auto) 0.7 Baso # (Auto) 0.2 H Nucleated RBC % (auto) 0 Nucleated RBCs # 0.0 PT 27.90 H INR 2.57 H Sodium Potassium Chloride Carbon Dioxide Anion Gap BUN Creatinine GFR Calculation Glucose Calculated Osmolality Lactate Uric Acid Calcium Phosphorus Magnesium Ferritin Total Bilirubin AST ALT Alkaline Phosphatase Ammonia Creatine Kinase Troponin T Hi Sens 6Hr Troponin T Hi Sens 6Hr Delta C-Reactive Protein NT-Pro-B Natriuret Pep Total Protein Albumin Globulin 25-OH Vitamin D Total Procalcitonin U Random Total Protein Urine Creatinine Vancomycin Trough SARS-CoV-2 RNA (RT-PCR) Blood Type A Positive Rho(D) Type Positive Antibody Screen Negative Crossmatch See Detail 05/28/22 05/28/22 05/28/22 10:32 07:31 01:40 WBC RBC Hgb Hct MCV MCH MCHC RDW Plt Count MPV Neut % (Auto) Lymph % (Auto) [place] % (Auto) Eos % (Auto) Baso % (Auto) Neut # (Auto) Lymph # (Auto) [place] # (Auto) Eos # (Auto) Baso # (Auto) Nucleated RBC % (auto) Nucleated RBCs # PT 37.60 H INR 3.79 H Sodium Potassium Chloride Carbon Dioxide Anion Gap BUN Creatinine GFR Calculation Glucose Calculated Osmolality Lactate Uric Acid Calcium Phosphorus Magnesium Ferritin Total Bilirubin AST ALT Alkaline Phosphatase Ammonia Creatine Kinase Troponin T Hi Sens 6Hr Troponin T Hi Sens 6Hr Delta C-Reactive Protein NT-Pro-B Natriuret Pep Total Protein Albumin Globulin 25-OH Vitamin D Total Procalcitonin U Random Total Protein 73 Urine Creatinine 137 Vancomycin Trough 10.8 SARS-CoV-2 RNA (RT-PCR) Blood Type Rho(D) Type Antibody Screen Crossmatch 05/28/22 05/28/22 05/28/22 01:40 01:40 01:40 WBC RBC Hgb Hct MCV MCH MCHC RDW Plt Count MPV Neut % (Auto) Lymph % (Auto) [place] % (Auto) Eos % (Auto) Baso % (Auto) Neut # (Auto) Lymph # (Auto) [place] # (Auto) Eos # (Auto) Baso # (Auto) Nucleated RBC % (auto) Nucleated RBCs # PT INR Sodium Potassium Chloride Carbon Dioxide Anion Gap BUN Creatinine GFR Calculation Glucose Calculated Osmolality Lactate 0.8 Uric Acid 4.9 Calcium Phosphorus Magnesium Ferritin 1269 H Total Bilirubin AST ALT Alkaline Phosphatase Ammonia 110 H Creatine Kinase 25 L Troponin T Hi Sens 6Hr Troponin T Hi Sens 6Hr Delta C-Reactive Protein NT-Pro-B Natriuret Pep 940 H Total Protein Albumin Globulin 25-OH Vitamin D Total 18 L Procalcitonin 1.27 H U Random Total Protein Urine Creatinine Vancomycin Trough SARS-CoV-2 RNA (RT-PCR) Blood Type Rho(D) Type Antibody Screen Crossmatch 05/28/22 05/28/22 05/27/22 01:40 01:40 19:12 WBC 14.9 H RBC 2.26 L Hgb 7.7 L Hct 22.5 L MCV 99.6 H MCH 34.1 H MCHC 34.2 RDW 15.9 H Plt Count 125 L MPV 10.0 Neut % (Auto) 75.5 Lymph % (Auto) 7.5 [place] % (Auto) 11.9 Eos % (Auto) 3.4 Baso % (Auto) 1.1 Neut # (Auto) 11.24 H Lymph # (Auto) 1.1 [place] # (Auto) 1.8 H Eos # (Auto) 0.5 Baso # (Auto) 0.2 H Nucleated RBC % (auto) 0 Nucleated RBCs # 0.0 PT INR Sodium 135 L Potassium 3.6 Chloride 109 H Carbon Dioxide 14 L Anion Gap 15.6 BUN 29 H Creatinine 2.5 H GFR Calculation 29.0 L Glucose 119 H Calculated Osmolality 287 Lactate Uric Acid Calcium 8.9 Phosphorus 3.2 Magnesium 1.7 Ferritin Total Bilirubin 27.9 H* AST 131 H ALT 59 H Alkaline Phosphatase 87 Ammonia Creatine Kinase Troponin T Hi Sens 6Hr 11.69 Troponin T Hi Sens 6Hr Delta 1.69 C-Reactive Protein 26.2 H NT-Pro-B Natriuret Pep Total Protein 6.2 L Albumin 2.7 L Globulin 3.5 25-OH Vitamin D Total Procalcitonin U Random Total Protein Urine Creatinine Vancomycin Trough SARS-CoV-2 RNA (RT-PCR) Blood Type Rho(D) Type Antibody Screen Crossmatch 05/27/22 05/27/22 16:34 12:30 WBC RBC Hgb Hct MCV MCH MCHC RDW Plt Count MPV Neut % (Auto) Lymph % (Auto) [place] % (Auto) Eos % (Auto) Baso % (Auto) Neut # (Auto) Lymph # (Auto) [place] # (Auto) Eos # (Auto) Baso # (Auto) Nucleated RBC % (auto) Nucleated RBCs # PT INR Sodium Potassium Chloride Carbon Dioxide Anion Gap BUN Creatinine GFR Calculation Glucose Calculated Osmolality Lactate Uric Acid Calcium Phosphorus Magnesium Ferritin Total Bilirubin AST ALT Alkaline Phosphatase Ammonia Creatine Kinase Troponin T Hi Sens 6Hr Troponin T Hi Sens 6Hr Delta C-Reactive Protein NT-Pro-B Natriuret Pep Total Protein Albumin Globulin 25-OH Vitamin D Total Procalcitonin U Random Total Protein Urine Creatinine Vancomycin Trough SARS-CoV-2 RNA (RT-PCR) Not detected Blood Type A Positive Rho(D) Type Positive Antibody Screen Crossmatch Completed Studies During Hospitalization Category Date Time Status CT abdomen pelvis wo con [id number] Stat Cat Scan 05/27/22 09:43 Completed XR chest 1V portable [id number] Stat Exams 05/27/22 06:47 Completed US renal BI* [id number] Routine Ultrasound 05/27/22 10:12 Completed Laboratory Last Values WBC 16.7 10^3/uL (4.0-10.0) H 05/28/22 12:31 RBC 2.07 10^6/uL (4.1-5.3) L 05/28/22 12:31 Hgb 7.1 g/dL (11.7-16.6) L 05/28/22 12:31 Hct 21.0 % (42.0-52.0) L 05/28/22 12:31 MCV 101.4 fl (80-94) H 05/28/22 12:31 MCH 34.3 pg (28.0-34.0) H 05/28/22 12:31 MCHC 33.8 g/dL (30.0-36.0) 05/28/22 12:31 RDW 15.7 % (12.1-15.1) H 05/28/22 12:31 Plt Count 125 10^3/cmm (130-400) L 05/28/22 12:31 MPV 10.1 fL (7.4-10.4) 05/28/22 12:31 Neut % (Auto) 76.6 % 05/28/22 12:31 Lymph % (Auto) 6.0 % 05/28/22 12:31 [place] % (Auto) 12.0 % 05/28/22 12:31 Eos % (Auto) 3.9 % 05/28/22 12:31 Baso % (Auto) 0.9 % 05/28/22 12:31 Neut # (Auto) 12.78 10^3/uL (1.8-7.7) H 05/28/22 12:31 Lymph # (Auto) 1.0 10^3/uL (0.8-4.8) 05/28/22 12:31 [place] # (Auto) 2.0 10^3/uL (0.2-0.9) H 05/28/22 12:31 Eos # (Auto) 0.7 10^3/uL (0.0-0.8) 05/28/22 12:31 Baso # (Auto) 0.2 10^3/uL (0.0-0.1) H 05/28/22 12:31 Nucleated RBC % (auto) 0 % 05/28/22 12:31 Nucleated RBCs # 0.0 /100WBC 05/28/22 12:31 PT 27.90 SECONDS (12.1-14.9) H 05/28/22 13:27 INR 2.57 (0.8-1.2) H 05/28/22 13:27 APTT 85.5 SECONDS (23.9-36.7) H 05/27/22 06:55 Sodium 135 mmol/L (136-145) L 05/28/22 01:40 Potassium 3.6 mmol/L (3.5-5.1) 05/28/22 01:40 Chloride 109 mmol/L (98-107) H 05/28/22 01:40 Carbon Dioxide 14 mmol/L (22-29) L 05/28/22 01:40 Anion Gap 15.6 (5-19) 05/28/22 01:40 BUN 29 mg/dL (6-20) H 05/28/22 01:40 Creatinine 2.5 mg/dL (0.7-1.2) H 05/28/22 01:40 GFR Calculation 29.0 mL/min (90-130) L 05/28/22 01:40 Glucose 119 mg/dL (65-115) H 05/28/22 01:40 Estimat Average Glucose 71 05/27/22 11:09 Hemoglobin A1c 4.1 % (4.0-6.0) 05/27/22 11:09 Calculated Osmolality 287 mOsm/kg (285-295) 05/28/22 01:40 Lactate 0.8 mmol/L (0.5-2.2) 05/28/22 01:40 Uric Acid 4.9 mg/dL (3.4-7.0) 05/28/22 01:40 Calcium 8.9 mg/dL (8.5-10.5) 05/28/22 01:40 Phosphorus 3.2 mg/dL (2.5-4.5) 05/28/22 01:40 Magnesium 1.7 mg/dL (1.7-2.3) 05/28/22 01:40 Ferritin 1269 ng/mL (30-400) H 05/28/22 01:40 Total Bilirubin 27.9 mg/dL (0.15-1.2) H* 05/28/22 01:40 GGT 61 U/L (8-61) 05/27/22 11:09 AST 131 U/L (0-40) H 05/28/22 01:40 ALT 59 U/L (0-41) H 05/28/22 01:40 Alkaline Phosphatase 87 IU/L (40-130) 05/28/22 01:40 Ammonia 110 umol/L (16-60) H 05/28/22 01:40 Creatine Kinase 25 U/L (39-308) L 05/28/22 01:40 Troponin T Baseline 10 ng/L (0-15) 05/27/22 12:55 Troponin T 120 Minute 10.63 ng/L (0-15) 05/27/22 14:56 Delta Troponin T -6.5 ABS# (0-10) L 05/27/22 14:56 Troponin T Hi Sens 6Hr 11.69 ng/L (0-15) 05/27/22 19:12 Troponin T Hi Sens 6Hr Delta 1.69 ng/L (0-12) 05/27/22 19:12 C-Reactive Protein 26.2 mg/L (0.0-4.9) H 05/28/22 01:40 NT-Pro-B Natriuret Pep 940 pg/mL (0-125) H 05/28/22 01:40 Total Protein 6.2 g/dL (6.6-8.7) L 05/28/22 01:40 Albumin 2.7 g/dL (3.5-5.2) L 05/28/22 01:40 Globulin 3.5 g/dL (1.3-4.6) 05/28/22 01:40 Triglycerides 182 mg/dL (0-150) H 05/27/22 10:51 Cholesterol 114 mg/dL (0-200) 05/27/22 10:51 LDL Cholesterol, Calc 66 mg/dL (50-129) 05/27/22 10:51 HDL Cholesterol 12 mg/dL (60-100) L 05/27/22 10:51 LDL/HDL Ratio 5.50 RATIO (0.00-3.22) H 05/27/22 10:51 Cholesterol/HDL Ratio 9.50 mg/dL (1.0-5.00) H 05/27/22 10:51 Lipase 142 U/L (13-60) H 05/27/22 06:55 25-OH Vitamin D Total 18 ng/mL (30-100) L 05/28/22 01:40 Procalcitonin 1.27 ng/mL (0-0.5) H 05/28/22 01:40 TSH 2.56 uIU/mL (0.27-4.20) 05/27/22 11:09 Urine Color Sakshi (Yellow) 05/27/22 12:40 Urine Appearance Cloudy (CLEAR) 05/27/22 12:40 Urine pH 5 (5-7) 05/27/22 12:40 Ur Specific [place] 1.015 (1.005-1.030) 05/27/22 12:40 Urine Protein Trace (Negative) 05/27/22 12:40 Urine Glucose (UA) Norm (Normal) 05/27/22 12:40 Urine Ketones Negative (Negative) 05/27/22 12:40 Urine Blood 3+ (Negative) H 05/27/22 12:40 Urine Nitrate Negative (Negative) 05/27/22 12:40 Urine Bilirubin 3+ (Negative) H 05/27/22 12:40 Urine Urobilinogen 4 mg/dL (Negative) H 05/27/22 12:40 Ur Leukocyte Esterase Trace (Negative) H 05/27/22 12:40 Urine RBC 0-4 /hpf (0-2) H 05/27/22 12:40 Urine WBC 5-10 /hpf (0-5) H 05/27/22 12:40 Ur Squamous Epith Cells 0-4 /hpf (0-5) H 05/27/22 12:40 Ur Transition Epith Cell 5-10 /hpf 05/27/22 12:40 Amorphous Sediment 1+ /hpf 05/27/22 12:40 Urine Bacteria 1+ /hpf (NONE) H 05/27/22 12:40 Coarse Granular Casts 5-10 /lpf H 05/27/22 12:40 Urine Mucus 1+ /hpf 05/27/22 12:40 U Random Total Protein 73 mg/dL 05/28/22 10:32 Ur Random Sodium < 10 mmol/L 05/27/22 12:40 Ur Random Potassium 24 mmol/L 05/27/22 12:40 Ur Random Chloride 13 mmol/L 05/27/22 12:40 Urine Creatinine 137 mg/dL (39-259) 05/28/22 10:32 Vancomycin Trough 10.8 ug/mL (10-15) 05/28/22 07:31 Salicylates < 0.3 mg/dL (3-10) L 05/27/22 10:51 Urine Opiates Screen Negative ng/mL (Negative) 05/27/22 12:40 Acetaminophen < 5.0 ug/mL (10-30) L 05/27/22 10:51 Ur Barbiturates Screen Negative ng/mL (Negative) 05/27/22 12:40 Ur Phencyclidine Scrn Negative ng/mL (Negative) 05/27/22 12:40 Ur Amphetamines Screen Negative ng/mL (Negative) 05/27/22 12:40 U Benzodiazepines Scrn Positive ng/mL (Negative) H 05/27/22 12:40 Urine Cocaine Screen Negative ng/mL (Negative) 05/27/22 12:40 U Marijuana (THC) Screen Positive ng/mL (Negative) H 05/27/22 12:40 Ethyl Alcohol < 10 mg/dL (0-10) 05/27/22 10:51 Coronavirus 229E (PCR) Cancelled 05/27/22 12:30 Hepatitis A IgM Ab Non-reactive (Nonreactive) 05/27/22 10:51 Hep Bs Antigen Non-reactive (Nonreactive) 05/27/22 10:51 Hep B Core IgM Ab Non-reactive (Nonreactive) 05/27/22 10:51 Hepatitis C Antibody Non-reactive (Nonreactive) 05/27/22 10:51 HIV 1&2 Ab & HIV 1 Ag Non-reactive (Non-Reactiv) 05/27/22 11:09 HIV 1&2 Antibody Non-reactive (Non-Reactiv) 05/27/22 11:09 SARS-CoV-2 (PCR) Cancelled 05/27/22 12:30 SARS-CoV-2 RNA (RT-PCR) Not detected (NOT DETECTED) 05/27/22 12:30 SARS-CoV-2 Ag (Rapid) Negative (Negative) 05/27/22 12:30 Blood Type A Positive 05/28/22 13:27 Rho(D) Type Positive 05/28/22 13:27 Antibody Screen Negative 05/28/22 13:27 Crossmatch See Detail 05/28/22 13:27 Radiology Impressions Chest X-Ray 05/27/22 06:47 IMPRESSION: No acute cardiopulmonary process. Abdomen/Pelvis CT 05/27/22 09:43 IMPRESSION: 1. Development of a small amount of free fluid within the pelvis and soft tissue anasarca. 2. Mild hepatomegaly and hepatic steatosis with recanalized umbilical vein. Consistent with portal venous hypertension. 3. Moderate submucosal edema within the RIGHT colon and to a lesser extent the transverse colon. This can be seen with cirrhosis and liver failure but also ischemic changes. 4. Normal appendix. Renal Ultrasound 05/27/22 10:12 IMPRESSION: 1. Technically difficult ultrasound evaluation of the kidneys due to body habitus. 2. No hydronephrosis or mass identified. 3. Normal size kidneys. Recent Clincial Data Last Vital Signs Temp 97.5 F L 05/28/22 16:00 Pulse 82 05/28/22 16:00 Resp 21 H 05/28/22 16:00 BP 119/61 05/28/22 16:00 Pulse Ox 98 05/28/22 16:00 O2 Del Method 05/28/22 16:00 Vital Signs Temp Pulse Resp BP Pulse Ox O2 Del Method 05/28/22 16:00 97.5 F L 82 21 H 119/61 98 Room Air 05/28/22 16:00 98.2 F 18 123/61 05/28/22 15:53 97.7 F 83 14 119/61 05/28/22 15:44 98.4 F 81 20 H 119/64 96 05/28/22 12:15 97.8 F 78 17 135/73 100 Room Air 05/28/22 12:00 78 19 H 135/73 100 05/28/22 11:45 80 21 H 130/69 100 05/28/22 11:30 80 23 H 117/61 100 05/28/22 11:15 78 18 117/61 98 05/28/22 11:00 78 16 127/56 98 05/28/22 10:45 77 15 127/56 97 05/28/22 10:30 77 18 123/61 98 05/28/22 10:15 76 16 121/59 99 05/28/22 10:00 78 17 126/62 98 05/28/22 10:40 97.4 F L 74 18 100 05/28/22 10:37 97.8 F 18 123/61 97 05/28/22 10:25 97.7 F 05/28/22 10:15 77 18 121/59 99 05/28/22 09:45 97.7 F 78 19 H 123/64 100 Room Air 05/28/22 09:30 78 21 H 125/63 100 05/28/22 09:15 72 16 131/70 05/28/22 09:00 79 19 H 128/64 99 05/28/22 08:45 79 16 126/68 05/28/22 08:30 79 15 126/68 100 05/28/22 08:15 78 15 113/73 100 05/28/22 08:00 79 19 H 122/65 98 05/28/22 07:45 78 19 H 122/65 05/28/22 07:30 77 19 H 130/65 97 05/28/22 07:15 76 16 121/64 95 05/28/22 07:00 75 16 122/61 05/28/22 06:45 75 17 122/61 95 05/28/22 06:30 79 18 121/60 97 05/28/22 06:15 77 18 121/61 93 05/28/22 06:00 77 18 123/62 96 05/28/22 05:45 77 18 116/60 95 05/28/22 05:30 75 18 119/62 96 05/28/22 05:15 75 19 H 116/62 97 05/28/22 05:35 77 05/28/22 05:00 75 17 115/61 100 05/28/22 04:45 76 18 117/59 99 Intake & Output/Weight 05/26/22 05/27/22 05/28/22 05/29/22 06:59 06:59 06:59 06:59 Intake Total 1999 1376.666 / 1376.666 849.305 / 849.305 Output Total 325 / 325 Balance 1999 1051.666 / 1051.666 849.305 / 849.305 Weight 80.286 kg 83.007 kg Vitals Last Vital Signs Temp 97.5 F L 05/28/22 16:00 Pulse 82 05/28/22 16:00 Resp 21 H 05/28/22 16:00 BP 119/61 05/28/22 16:00 Pulse Ox 98 05/28/22 16:00 O2 Del Method 05/28/22 16:00 TS Medications Medications Folic Acid (Folic Acid 1 Mg Tablet) 1 mg PO DAILY [facility] Last Admin: 05/28/22 08:49 Dose: 1 mg Albumin Human (Albumin) 25 gm in 100 mls @ 60 mls/hr IV Q8H [facility] Last Infusion: 05/28/22 14:45 Dose: Infused Octreotide Acetate 500 mcg/ (Sodium Chloride) 101 mls @ 10.1 mls/hr IV .Q10H [facility] Last Admin: 05/28/22 12:58 Dose: 50 mcg/hr, 10.1 mls/hr Piperacillin Sod/Tazobactam (Sod 3.375 gm/ Sodium Chloride) 50 mls @ 12.5 mls/hr IV Q8H [facility] Last Admin: 05/28/22 11:45 Dose: 12.5 mls/hr Vancomycin HCl 1,000 mg/ (Sodium Chloride) 250 mls @ 250 mls/hr IV Q24H [facility]; Protocol Last Admin: 05/28/22 14:10 Dose: 250 mls/hr Pantoprazole Sodium 40 mg/ (Dextrose) 100 mls @ 20 mls/hr IV .Q5H [facility] Last Admin: 05/28/22 12:56 Dose: 8 mg/hr, 20 mls/hr Dextrose/Sodium Chloride (Dextrose 5%-Sod Chloride 0.9%) 1,000 mls @ 75 mls/hr IV .[id number] [facility] Last Admin: 05/28/22 14:09 Dose: 75 mls/hr Potassium Phosphate 40 meq/ (Sodium Chloride) 109.0909 mls @ 27.25 mls/hr IV ONCE ONE Stop: 05/28/22 17:30 Last Admin: 05/28/22 15:03 Dose: 27.25 mls/hr Lactulose (Lactulose Oral Liq 20 Gm/30 Ml Udc) 30 gm PO TID [facility] Last Admin: 05/28/22 14:38 Dose: 30 gm Lorazepam (Lorazepam 2 Mg/Ml Inj 1 Ml) 2 mg IM Q4H PRN; Protocol PRN Reason: [facility] Metoclopramide HCl (Metoclopramide 5 Mg/Ml Sdv 2 Ml) 5 mg IVP Q6H PRN PRN Reason: NAUSEA AND VOMITING Last Admin: 05/28/22 12:10 Dose: 5 mg Midodrine (Midodrine 5 Mg Tablet) 5 mg PO TID [facility] Last Admin: 05/28/22 08:49 Dose: 5 mg Multivitamins Therapeutic (Multivitamin Therapeutic Tablet) 1 tab PO DAILY [facility] Last Admin: 05/28/22 08:49 Dose: 1 tab Naloxone HCl (Naloxone 0.4 Mg/Ml Sdv) 0.1 mg IVP Q2M PRN PRN Reason: OPIATERV Ondansetron HCl (Ondansetron 2 Mg/Ml Sdv 2 Ml) 4 mg IVP Q6H PRN PRN Reason: NAUSEA AND VOMITING Last Admin: 05/28/22 14:35 Dose: 4 mg Rifaximin (Rifaximin 550 Mg Tablet) 550 mg PO BID [facility]; Protocol Last Admin: 05/28/22 08:49 Dose: 550 mg Sucralfate (Sucralfate 1 Gm Tablet) 1 gm PO Q6H [facility] Last Admin: 05/28/22 14:06 Dose: 1 gm Thiamine Mononitrate (Thiamine 100 Mg Tablet) 100 mg PO DAILY [facility] Last Admin: 05/28/22 08:49 Dose: 100 mg Discontinued Medications Sodium Chloride (Sodium Chloride 0.9%) 1,000 mls @ 999 mls/hr IV .Q1H1M [facility] Stop: 05/26/22 18:15 Last Infusion: 05/27/22 01:21 Dose: Infused Lactated Ringer's (Lactated Ringers) 1,000 mls @ 75 mls/hr IV .[id number] [facility] Last Infusion: 05/28/22 00:31 Dose: 75 mls/hr Dextrose/Sodium Chloride (Dextrose 5%-Sod Chloride 0.9%) 1,000 mls @ 125 mls/hr IV .Q8H [facility] Last Admin: 05/27/22 11:18 Dose: 125 mls/hr Lidocaine HCl 5 ml/ Potassium (Chloride) 105 mls @ 25 mls/hr IV ONCE ONE Stop: 05/27/22 15:01 Last Admin: 05/27/22 11:34 Dose: 25 mls/hr Magnesium Sulfate (Magnesium Sulfate Premix) 4 gm in 100 mls @ 50 mls/hr IV ONCE ONE Stop: 05/28/22 15:29 Last Admin: 05/28/22 15:13 Dose: 50 mls/hr Sodium Chloride (Sodium Chloride 0.9% (100 Ml)) Confirm Administered Dose 100 mls @ as directed .ROUTE .STK-MED ONE Stop: 05/28/22 15:23 Lactulose (Lactulose Oral Liq 20 Gm/30 Ml Udc) 20 gm PO ONCE ONE Stop: 05/27/22 01:58 Last Admin: 05/27/22 02:15 Dose: 20 gm Lactulose (Lactulose Oral Liq 20 Gm/30 Ml Udc) 20 gm PO TID [facility] Last Admin: 05/28/22 08:49 Dose: 20 gm Ondansetron HCl (Ondansetron 2 Mg/Ml Sdv 2 Ml) 4 mg IVP ONCE ONE Stop: 05/26/22 16:13 Last Admin: 05/26/22 16:27 Dose: 4 mg Pantoprazole Sodium (Pantoprazole 40 Mg Sdv) 40 mg IVP Q12H [facility] Last Admin: 05/27/22 12:59 Dose: 40 mg Phytonadione (Phytonadione (Adult) 10 Mg/Ml Ampule 1 Ml) 10 mg SUBCUT ONCE ONE Stop: 05/27/22 12:16 Last Admin: 05/27/22 13:00 Dose: 10 mg Phytonadione (Phytonadione (Adult) 10 Mg/Ml Ampule 1 Ml) 10 mg SUBCUT ONCE ONE Stop: 05/28/22 08:01 Last Admin: 05/28/22 08:49 Dose: 10 mg Phytonadione (Phytonadione (Adult) 10 Mg/Ml Ampule 1 Ml) 10 mg SUBCUT ONCE ONE Stop: 05/28/22 14:07 Last Admin: 07/27/22 14:32 Dose: 10 mg Rifaximin (Rifaximin 550 Mg Tablet) 550 mg PO ONCE ONE; Protocol Stop: 05/27/22 01:57 Last Admin: 05/27/22 02:15 Dose: 550 mg Sucralfate (Sucralfate 1 Gm Tablet) 1 gm PO AC&BEDTIME [place] Last Admin: 05/28/22 12:10 Dose: 1 gm Thiamine HCl (Thiamine 100 Mg/Ml Sdv) 100 mg IM ONCE ONE Stop: 05/27/22 10:51 Last Admin: 05/27/22 17:22 Dose: Not Given Thiamine HCl (Thiamine 100 Mg/Ml Sdv) 100 mg IM ONCE ONE Stop: 05/27/22 13:26 Last Admin: 05/27/22 13:39 Dose: 100 mg Allergies No Known Allergies Allergy (Verified 05/26/22 16:57) Home Medications Bone Growth Stimulator E0748 #1 ea 11/25/21 [Rx Confirmed 05/26/22] lactulose 20 gram/30 mL oral solution 20 g PO TID PRN Constipation 04/25/22 [History Confirmed 05/26/22] omeprazole magnesium 20 mg tablet,delayed release (Prilosec OTC) 20 mg PO DAILY 04/25/22 [History Confirmed 05/26/22] citalopram 40 mg tablet 40 mg PO DAILY #90 tabs 05/14/22 [Rx Confirmed 05/26/22] rifaximin 550 mg tablet (Xifaxan) 550 mg PO BID 05/14/22 [History Confirmed 05/26/22] ondansetron HCl 4 mg tablet 4 mg PO Q8H PRN nausea and vomiting #90 tabs 05/20/22 [Rx Confirmed 05/26/22] melatonin 5 mg tablet 5 mg PO BEDTIME 05/26/22 [History Confirmed 05/26/22] Discharge Plan Discharge Patient Disposition: Home Condition: Stable Prescriptions: No Action (DME) Bone Growth Stimulator E0748 See Rx Instructions .Route .MEDSUPPLY Qty: 1 0RF Rx Instructions: As directed Xifaxan 550 mg tablet 550 mg PO BID citalopram 40 mg tablet 40 mg PO DAILY Qty: 90 3RF ondansetron HCl 4 mg tablet 4 mg PO Q8H PRN (Reason: nausea and vomiting) Qty: 90 0RF omeprazole magnesium [Prilosec OTC] 20 mg Tablet,Delayed Release (Dr/Ec) 20 mg PO DAILY lactulose 20 gram/30 mL solution 20 g PO TID PRN (Reason: Constipation) melatonin 5 mg Tablet 5 mg PO BEDTIME Discharge Orders: Transfer Out of Facility (Order); Ordered 05/28/22 Ordered By: Fausto Simmons Referrals: Basilio Valladares MD [Primary Care Provider] - Patient Instructions: Opioid Safety Transfer Attestations Time Spent in Transfer Care: less than 30 min Quality Metrics Clinical Quality Measures [ No reported AMI, CVA or VTE this stay] Coding Level of Care Code Acute Cna Pct for Chg Fwd Exam Detailed Diagnoses Acute liver failure K72.00 Liver cirrhosis K74.60 Portal hypertension K76.6 History of alcoholism F10.21 Hepatorenal syndrome K76.7 Elevated INR R79.1 Hyperbilirubinemia E80.6 Anemia D64.9
[2022-05-28] MEDS: sodium chloride 0.9% (100 ml) 100 ML (17:20)
--- NOTE | 2022-05-28 17:39 | PC.NURSE ---
Late note..... Patient's HGB is now 7.1. trending down over the past [address] de. REceived orders for 2 units of blood.
--- NOTE | 2022-05-28 17:40 | PC.NURSE ---
We have acceptance at [facility], [place], [place]. Accepted to [facility] wing [id number]. Nurse called report to Richelle at [phone]. psychiatric secretary has called [employer] for transport and we are currently pending a weather check.
--- NOTE | 2022-05-28 17:54 | PC.NURSE ---
[employer] and their sister company who flys fixed wing, [employer], cannot transport due to weather in [place]. Nurse also tried [employer] and they also declined due to weather. CUrrently attempting to arrange ground transport with [facility].
--- NOTE | 2022-05-28 19:01 | PC.NURSE ---
[facility] ambulance accepted transport.
--- NOTE | 2022-05-28 19:02 | PC.NURSE ---
Patient sent with [facility] ambulance,ambulance staff was Ken agrawal and Carlee Kc. octreotide, protonix, blood, and D5NS drips sent with patient. Sister was present at bedside during transfer. Rory robins sent with patient. Nurse called Richelle at [facility] and advised they are en route via [facility].
== END 2022-05-28 19:07 | disposition short-term general hospital (02) | DRG 432 ==
LOC: ER 05-27 08:34 → ICU 05-27 10:03
PROVIDERS: Internal Medicine Nephrology; Admitting Provider Family Medicine; Emergency Provider Family Medicine; PCP Internal Medicine; Visit Provider Family Medicine
DX: K70.40 Alcoholic hepatic failure without coma (principal); K76.7 Hepatorenal syndrome; N17.9 Acute kidney failure, unspecified; E87.1 Hypo-osmolality and hyponatremia; E87.2 Acidosis; K76.6 Portal hypertension; D68.9 Coagulation defect, unspecified; F10.21 Alcohol dependence, in remission; F32.9 Major depressive disorder, single episode, unspecified; F17.200 Nicotine dependence, unspecified, uncomplicated; D63.8 Anemia in other chronic diseases classified elsewhere
CPT/HCPCS: 36415; 36430; 51702; 71045; 74176; 76770; 80053; 80061; 80074; 80202; 80306; 80307; 81001; 82140; 82306; 82436; 82550; 82570; 82728; 82977; 83036; 83605; 83690; 83735; 83880; 84100; 84133; 84145; 84156; 84300; 84443; 84484; 84550; 85025; 85610; 85730; 86140; 86850; 86900; 86920; 86927; 87040; 87426; 87635; 87806; 93005; 96361; 96372; 96374; 99285; C9113; J2354; J2405; J2543; J2765; J3370; J3411; J3430; J3475; J3480; J7030; J7050; P9016; P9017; P9047